=== PATIENT | female | born 1930 | race Caucasian/White ===

== ENCOUNTER 2017-02-23 18:37 | Emergency (ER) | payer OTHER ==
[2017-02-23 18:41] VITALS: PULSE 85; TEMP 97.7; BMI 21.6
--- NOTE | 2017-02-23 19:25 | PDOC ---
History of Present Illness - General History Source: Patient Exam Limitations: No Limitations - History of Present Illness Initial Comments: 02/23/17 20:11 The patient is a 86 year old female, with a significant past medical history of bursitis, osteoporosis, hx of AAA, HTN, hyperlipidemia, hypothyroidism, left breast CA(2010; s/p lumpectomy and radiation; no metastasis), left sided bursitis, COPD, emphysema and diverticulitis who presents to the emergency department with left sided neck pain and left arm pain. Patient describes the pain as sharp and constant in nature with sudden onset few days ago and worsening over 3 days. Patient notes that she took 400 mg of motrin with no relief at 1600 hours. She notes that she had similar complaint, and was diagnosed with muscle spasm but she states that this time its different. She denies any fall or strenuous activity. She denies fever, chills, cp, shortness of breath, abdominal pain, nausea, vomiting, diarrhea. No numbness or tingling. PSH: Appendectomy, Cholecystectomy, DEMOND/BSO SH: former smoker PCP - Dr. Fredo Oleary <Kaitlin Brandon - Last Filed: 02/23/17 20:11> <Ting Thibodeaux - Last Filed: 02/24/17 03:33> - General Chief Complaint: Pain Stated Complaint: PAIN Time Seen by Provider: 02/23/17 19:17 Past History <Kaitlin Brandon - Last Filed: 02/23/17 20:11> - Past Medical History Anemia: No Asthma: No Cancer: Yes (LEFT BREAST) Cardiac Disorders: Yes CVA: No COPD: Yes (EMPYSEMA) CHF: No Dementia: No Diabetes: No GI Disorders: No Disorders: No HTN: Yes Hypercholesterolemia: Yes Liver Disease: No Seizures: No Thyroid Disease: Yes - Surgical History Abdominal Surgery: No Appendectomy: Yes Cardiac Surgery: No Cholecystectomy: (STONE REMOVAL) Lung Surgery: No (L BREAST LUMPECTOMY) Neurologic Surgery: No Orthopedic Surgery: Yes (R WRIST ORIF) - Psycho/Social/Smoking Cessation Hx Anxiety: No Suicidal Ideation: No Smoking History: Former smoker Have you smoked in the past 12 months: No If you are a former smoker, when did you quit?: 10 YRS Information on smoking cessation initiated: No Hx Alcohol Use: Yes (SOCIAL) Drug/Substance Use Hx: No Substance Use Type: None Hx Substance Use Treatment: No <Ting Thibodeaux - Last Filed: 02/24/17 03:33> - Past Medical History Allergies/Adverse Reactions: Allergies Allergy/AdvReac Type Severity Reaction Status Date / Time Sulfa (Sulfonamide Allergy "feels Verified 02/23/17 18:41 Antibiotics) like bugs are crawling in my skin" Home Medications: Ambulatory Orders Aspirin [ASA -] 81 mg PO DAILY 08/09/13 Atorvastatin Ca [Lipitor] 20 mg PO DAILY 08/09/13 Methimazole 5 mg PO UTDICT 08/09/13 Valsartan/Hydrochlorothiazide [Diovan Hct 80-12.5 mg Tablet -] 1 tab PO DAILY Multivitamins [Multivit ([facility] Formul[facility])] 1 tab PO DAILY 09/05/14 Cholecalciferol (Vitamin D3) [Vitamin D] 1,000 unit PO DAILY 11/03/15 Cyanocobalamin (Vitamin B-12) [Vitamin B12] 2,500 mcg PO DAILY 11/03/15 Cyclobenzaprine HCl [Flexeril] 5 mg PO BID PRN #20 tablet 11/03/15 Fiber [Fiber Choice] 1 each PO DAILY 11/03/15 Ibuprofen [Motrin -] 600 mg PO TID PRN 02/23/17 Methocarbamol [Robaxin -] 500 mg PO TID #30 tablet 02/23/17 Oxycodone HCl/Acetaminophen [Percocet 5/325 -] 1 tab PO Q6H #20 tablet MDD 4 Review of Systems - Review of Systems Able to Perform ROS?: Yes Comments:: 02/23/17 20:11 GENERAL/CONSTITUTIONAL: No fever or chills. No weakness. HEAD, EYES, EARS, NOSE AND THROAT: No change in vision. No ear pain or discharge. No sore throat. CARDIOVASCULAR: No chest pain or shortness of breath. RESPIRATORY: No cough, wheezing, or hemoptysis. GASTROINTESTINAL: No nausea, vomiting, diarrhea or constipation. GENITOURINARY: No dysuria, frequency, or change in urination. MUSCULOSKELETAL: +left arm pain, left sided neck pain. No joint or muscle swelling or pain. No back pain. SKIN: No rash NEUROLOGIC: No headache, vertigo, loss of consciousness, or change in strength/ sensation. ENDOCRINE: No increased thirst. No abnormal weight change. HEMATOLOGIC/LYMPHATIC: No anemia, easy bleeding, or history of blood clots. ALLERGIC/IMMUNOLOGIC: No hives or skin allergy. <Kaitlin Brandon - Last Filed: 02/23/17 20:11> *Physical Exam - Vital Signs Last Vital Signs Temp Pulse Resp BP Pulse Ox 97.7 F 85 20 143/60 93 L 02/23/17 18:38 02/23/17 18:38 02/23/17 18:38 02/23/17 18:38 02/23/17 18:38 - Physical Exam Comments: 02/23/17 20:12 GENERAL: Awake, alert, and fully oriented, in no acute distress HEAD: No signs of trauma EYES: PERRLA, EOMI, sclera anicteric, conjunctiva clear ENT: Auricles normal inspection, hearing grossly normal, nares patent, oropharynx clear without exudates. Moist mucosa NECK: Normal ROM, supple, no lymphadenopathy, JVD, or masses LUNGS: Breath sounds equal, clear to auscultation bilaterally. No wheezes, and no crackles HEART: Regular rate and rhythm, normal S1 and S2, no murmurs, rubs or gallops ABDOMEN: Soft, nontender, normoactive bowel sounds. No guarding, no rebound. No masses EXTREMITIES: +mild tenderness with abduction. Normal range of motion, no edema. No clubbing or cyanosis. No cords, erythema. Full ROM. MUSCULOSKELETAL: +tenderness over trapezius NEUROLOGICAL: Cranial nerves II through XII grossly intact. Normal speech, normal gait SKIN: Warm, Dry, normal turgor, no rashes or lesions noted. <Kaitlin Brandon - Last Filed: 02/23/17 20:11> - Vital Signs Last Vital Signs Temp Pulse Resp BP Pulse Ox 97.7 F 85 20 143/60 93 L 02/23/17 18:38 02/23/17 18:38 02/23/17 18:38 02/23/17 18:38 02/23/17 18:38 <Ting Thibodeaux - Last Filed: 02/24/17 03:33> Medical Decision Making - Medical Decision Making 02/23/17 21:05 xray demonstrate DJD of the c spine.. shoulder XR is normal. 02/24/17 03:30 Pt has left neck and trapesius pain. She has kyphoscoliosis. No other complaints. XRays consistent with DJD; left shoulder xr is normal. Pt given NSAIDS and muscle relaxants. <Ting Thibodeaux - Last Filed: 02/24/17 03:33> *DC/Admit/Observation/Transfer - Attestations Scribe Attestion: 02/23/17 20:12 Documentation prepared by ADILENE Garcia, acting as biomedical service engineer for Ting Thibodeaux MD. <Kaitlin Brandon - Last Filed: 02/23/17 20:11> - Discharge Dispostion Admit: No <Ting Thibodeaux - Last Filed: 02/24/17 03:33> Diagnosis at time of Disposition: Muscle spasms of neck, DJD (degenerative joint disease) of cervical spine - Discharge Dispostion Disposition: HOME Condition at time of disposition: Stable - Prescriptions Prescriptions: Oxycodone HCl/Acetaminophen [Percocet 5/325 -] 1 tab PO Q6H #20 tablet MDD 4 Methocarbamol [Robaxin -] 500 mg PO TID #30 tablet - Referrals Referrals: Fredo Oleary MD [Primary Care Provider] - - Patient Instructions Printed Discharge Instructions: DI for Back Spasm, DI for Neck Pain, DI for Cervical Muscle Strain
[2017-02-23] MEDS ORDERED: KETOROLAC TROMETHAMINE 60 MG/2 ML VIAL IM ONE (20:06)
[2017-02-23] MEDS ORDERED: METHOCARBAMOL 500 MG TABLET PO ONE (20:06)
[2017-02-23] MEDS ORDERED: METHOCARBAMOL 500 MG TABLET ONE (20:07)
[2017-02-23] MEDS ORDERED: KETOROLAC TROMETHAMINE 30 MG/1 ML VIAL ONE ×2 (20:07→20:17)
[2017-02-23] MEDS ORDERED: OXYCODONE/APAP 5/325MG COMBO TABLET PO ONE (21:05)
[2017-02-23] MEDS ORDERED: OXYCODONE/APAP 5/325MG COMBO TABLET ONE (21:13)
[2017-02-23 21:20] VITALS: BP 136/74
--- NOTE | 2017-02-24 15:08 | EKG ---
Test Reason : Blood Pressure : / mmHG Vent. Rate : 074 BPM Atrial Rate : 074 BPM P-R Int : 176 ms QRS Dur : 080 ms QT Int : 398 ms P-R-T Axes : 057 -41 054 degrees QTc Int : 441 ms NORMAL SINUS RHYTHM LEFT AXIS DEVIATION ABNORMAL ECG WHEN COMPARED WITH ECG OF 03-NOV-2015 08:44, PREMATURE VENTRICULAR COMPLEXES ARE NO LONGER PRESENT Confirmed by MUSA CALDERÓN MD ([id number]) on 02/24/2017 3:08:33 PM Referred By: Confirmed By:MUSA CALDERÓN MD
== END 2017-02-23 21:20 | disposition home or self-care (01) ==
LOC: JERFT 18:37 → JER 18:37
PROC: 3E0233Z Introduction of Anti-inflammatory into Muscle, Percutaneous Approach (ICD-10-PCS; principal; 2017-02-23)
DX: M62.838 Other muscle spasm (principal); M50.30 Other cervical disc degeneration, unspecified cervical region; I10 Essential (primary) hypertension; E78.00 Pure hypercholesterolemia, unspecified; E03.9 Hypothyroidism, unspecified; Z85.3 Personal history of malignant neoplasm of breast
CPT/HCPCS: 72050-TC; 73030-TC-LT; 93005; 93010; 96372; 99281-25

== ENCOUNTER 2017-06-19 07:46 | Inpatient (IN) | payer OTHER ==
--- NOTE | 2017-06-19 08:19 | PDOC ---
History of Present Illness - General Chief Complaint: Weakness Stated Complaint: WEAKNESS Time Seen by Provider: 06/19/17 07:52 - History of Present Illness Initial Comments: 06/19/17 08:32 Patient is an 87 year old female with a history of a AAA, HTN, COPD, osteporosis , Breast CA s/p lumpectomy 2009 who presents with generalized fatigue. The patient reports 1 weak of increasing weakness with some associated worsening of SOB, lightheadedness and nausea. The patient is SOB at baseline, but notes a worsening over the past few days. The patient is accompanied by her daughter who reports that the patient has been less active in the past few days prompting their visit to the ED. The patient also reports an acute worsening of her chronic upper back and neck pain. She denies fevers, chills, cough, chest pain, abdominal pain, or changes in her urination or bowel movements. Past History - Past Medical History Allergies/Adverse Reactions: Allergies Allergy/AdvReac Type Severity Reaction Status Date / Time Sulfa (Sulfonamide Allergy "feels Verified 06/19/17 08:01 Antibiotics) like bugs are crawling in my skin" Home Medications: Ambulatory Orders Aspirin [ASA -] 81 mg PO DAILY 08/09/13 Atorvastatin Ca [Lipitor] 20 mg PO DAILY 08/09/13 Multivitamins [Multivit ([facility] Form[facility])] 1 tab PO DAILY 09/05/14 Cholecalciferol (Vitamin D3) [Vitamin D] 2,000 unit PO DAILY 11/03/15 Cyanocobalamin (Vitamin B-12) [Vitamin B12] 1,000 mcg PO DAILY 11/03/15 Fiber [Fiber Choice] 1 each PO DAILY 11/03/15 Budesonide/Formeterol Fumarate [SYMBICORT 160/4.5mcg -] 1 inh IH PRN PRN Tiotropium [place] [Spiriva] 1 inh IH DAILY 06/19/17 Vitamin E 0 unit PO ASDIR 06/19/17 Anemia: No Asthma: No Cancer: Yes (LEFT BREAST) Cardiac Disorders: Yes CVA: No COPD: Yes (EMPYSEMA) CHF: No Dementia: No Diabetes: No GI Disorders: No Disorders: No HTN: Yes Hypercholesterolemia: Yes Liver Disease: No Seizures: No Thyroid Disease: Yes - Surgical History Abdominal Surgery: No Appendectomy: Yes Cardiac Surgery: No Cholecystectomy: (STONE REMOVAL) Lung Surgery: No (L BREAST LUMPECTOMY) Neurologic Surgery: No Orthopedic Surgery: Yes (R WRIST ORIF) - Immunization History Immunization Up to Date: Yes - Psycho/Social/Smoking Cessation Hx Anxiety: No Suicidal Ideation: No Smoking History: Former smoker Have you smoked in the past 12 months: No If you are a former smoker, when did you quit?: 2009 Information on smoking cessation initiated: No Hx Alcohol Use: No Drug/Substance Use Hx: No Substance Use Type: None Hx Substance Use Treatment: No Review of Systems - Review of Systems Constitutional: Yes: Weakness. No: Chills, Fever Respiratory: Yes: Shortness of Breath. No: Cough, Wheezing Cardiac (ROS): No: Chest Pain, Palpitations ABD/GI: No: Constipated, Diarrhea, Nausea, Vomiting : No: Burning, Dysuria Musculoskeletal: Yes: Back Pain, Neck Pain Integumentary: No: Rash Neurological: Yes: Headache. No: Numbness, Paresthesia, Tingling, Weakness *Physical Exam - Vital Signs Last Vital Signs Temp Pulse Resp BP Pulse Ox 97.8 F 100 H 22 134/77 90 L 06/19/17 07:50 06/19/17 07:50 06/19/17 07:50 06/19/17 07:50 06/19/17 07:50 - Physical Exam Comments: 06/19/17 08:53 General Appearance: Nourished. No Apparent Distress HEENT: EOMI, MARTHA. No Pharyngeal Erythema, Tonsillar Exudate, Tonsillar Erythema, Nasal Congestion, Rhinorrhea Respiratory/Chest: Normal Breath Sounds, Crackles ascultated at the right lung base. No Rhonchi, Wheezing Cardiovascular: Regular Rhythm, Regular Rate. No Murmur, Gallop/S3, Gallop/S4 Gastrointestinal/Abdominal: Normal Bowel Sounds, Soft, Mild suprapubic tenderness on exam. No Guarding, Rebound, Extremity: Normal Capillary Refill Integumentary: Normal Color, Dry, Warm Neurologic: pipe washer II-XII NML intact, Fully Oriented, Alert, Normal Mood/Affect, Normal Response, Motor Strength 5/5 ED Treatment Course - LABORATORY CBC & Chemistry Diagram: 06/19/17 09:03 06/19/17 09:03 Medical Decision Making - Medical Decision Making 06/19/17 08:54 Patient is a 87 year old female with a history of HTN, COPD, AAA, osteporosis, breast CA s/p lumpectomy who presents with generalized weakness. Differential includes but is not limited to: Pneumonia, COPD exacerbation, ACS, UTI. The patient's exam is concerning for a pneumonia with crackles at the right lung base as well as UTI given suprapubic tenderness. We will obtain a UA, chest radiograph, cbc, cmp, troponin. 06/19/17 14:23 CBC remarkable for elevated WBC to 10.5. Chest radiograph demonstrates right lower lobe atelectasis without infiltrates as read by our radiologist. CMP and troponin are unremarkable. UA is remarkable for WBC of 40, and many bacteria concerning for UTI. We believe that the patient requires admission given her UTI and multiple episodes of nausea and pre-syncopal episodes. 06/19/17 14:[address] Hall and accepted for admission. *DC/Admit/Observation/Transfer Diagnosis at time of Disposition: UTI (urinary tract infection) Qualifiers: Urinary tract infection type: acute cystitis Hematuria presence: without hematuria Qualified Code(s): N30.00 - Acute cystitis without hematuria - Discharge Dispostion Condition at time of disposition: Stable Admit: Yes - Referrals - Attestations Physician Attestion: 06/19/17 19:02 I, Dr. Jayson Dye, attest that this document has been prepared under my direction and personally reviewed by me in its entirety. I further attest, that it accurately reflects all work, treatment, procedures and medical decision -making performed by me.
--- NOTE | 2017-06-19 08:25 | PDOC ---
Attending Attestation - Medical Decision Making 06/19/17 13:08 Dr. Hall microblogged for admission. Documentation prepared by Earnestine Tyler, acting as pediatrician/medical doctor for River Han MD <Earnestine Tyler - Last Filed: 06/19/17 13:08> - Resident Resident Name: Jayson Dye - ED Attending Attestation I have performed the following: I have examined & evaluated the patient, The case was reviewed & discussed with the resident, I agree w/resident's findings & plan, Exceptions are as noted - HPI HPI: 06/19/17 08:20 87yo F hx breast ca s/p lumpectomy 2010, COPD, emphysema, HTN, HL, AAA p/w generalized weakness associated with episodes of lightheadedness and nausea for 1 week. She feels the weakness is getting worse and that she is having more frequent episodes of nausea and lightheadedness. She denies any loss of consciousness or falls. She also reports a new cough that is nonproductive and increased thirst leading to increased urinary frequency. She denies any sick contacts or recent travel. She denies any chest pain. She reports that she is short of breath at baseline secondary to her COPD and that has not gotten worse over the last week. She denies any abdominal pain, lower extremity edema, rashes. In addition she endorses neck and back pain since October that she has been seeing a pain management doctor for. PMD: Mamta 06/19/17 09:08 - Physicial Exam PE: 06/19/17 08:26 GENERAL: Awake, alert, and fully oriented, in no acute distress HEAD: No signs of trauma EYES: PERRLA, EOMI, sclera anicteric, conjunctiva clear ENT: Auricles normal inspection, hearing grossly normal, nares patent, oropharynx clear without exudates. dry MM NECK: Normal ROM, supple, no lymphadenopathy, JVD, or masses LUNGS: Breath sounds equal, clear to auscultation bilaterally. No wheezes, + crackles at R lung base HEART: tachy but regular, rate 102, normal S1 and S2, no murmurs, rubs or gallops ABDOMEN: Soft, normoactive bowel sounds. No guarding, no rebound. No masses + suprapubic ttp EXTREMITIES: Normal range of motion, no edema. No clubbing or cyanosis. No cords, erythema, or tenderness NEUROLOGICAL: Normal speech, cranial nerves intact, negative pronator drift, 5/ 5 strength in all 4 extremities, normal sensation to light touch in all 4 extremities, normal cerebellar exam, normal gait, normal reflexes and tone SKIN: Warm, Dry, normal turgor, no rashes or lesions noted. EKG: NSR, rate 87, left axis deviation, normal intervals, T-wave flattening in aVL, no ST elevations. No significant change compared to EKG from 02/23/2017. - Medical Decision Making 06/19/17 09:08 87yo F hx breast ca s/p lumpectomy 2010, COPD, emphysema, HTN, HL, AAA presents with generalized weakness associated with episodes of lightheadedness and nausea. Exam remarkable for mild tachycardia, dry mucous membranes, crackles at the right lung base as well as suprapubic tenderness to palpation. Differential is wide and includes acute coronary syndrome given the weakness and episodes of nausea and lightheadedness versus infection, specifically pneumonia given the crackles on exam or UTI given the suprapubic tenderness to palpation. -labs -ua/ucx -cxr -500cc IVF -call Dr. Oleary -admit 06/19/17 20:[address] Hall for further monitoring and management <River Han - Last Filed: 06/19/17 20:06>
[2017-06-19] MEDS ORDERED: SODIUM CHLORIDE 500 ML IV STA (09:08)
[2017-06-19 09:13] LABS: BASOPHIL 0.3 % (0-2.0); MCH 30.3 pg (25.7-33.7); MCHC 32.9 g/dl (32.0-36.0); MEAN CELL VOLUME 92.1 fl (80-96); MEAN PLT VOLUME 8.9 fl (7.5-11.1); NEUTROPHILS 82.4 % (42.8-82.8); PLATELET COUNT 285 K/MM3 (134-434); RDW 15.4 % (11.6-15.6); WHITE BLOOD COUNT 10.3 K/mm3 (4.0-10.0)
[2017-06-19] MEDS ORDERED: ALBUTEROL SO4 2.5/IPRATROPIUM 0.5 INH SOL 3 ML VIAL.NEB. NEB ONE ×2 (09:15→10:27)
[2017-06-19 09:35] LABS: ALBUMIN 3.7 g/dl (3.4-5.0); ANION GAP 8 (8-16); BILIRUBIN,TOTAL 0.4 mg/dL (0.2-1.0); CALCIUM 8.3 mg/dL (8.5-10.1); CO2 28 mmol/L (21-32); CREATININE 0.6 mg/dL (0.55-1.02); GLUCOSE,RANDOM 101 mg/dL (74-106); SGOT/AST 23 U/L (15-37); SGPT/ALT 34 U/L (12-78); TOT PROT 6.5 g/dl (6.4-8.2)
[2017-06-19 09:38] LABS: ALK PHOS 85 U/L (45-117); CPK 33 IU/L (26-192); TROPONIN I < 0.02 ng/ml (0.00-0.05)
[2017-06-19] MEDS ORDERED: CEFTRIAXONE 1 GM in DEXTROSE 5%-WATER - 50 ML IVPB ONE (09:43)
[2017-06-19] MEDS ORDERED: AZITHROMYCIN IVPB 500 MG in DEXTROSE 5%-WATER - 250 ML IVPB ONE (09:43)
[2017-06-19] MEDS ORDERED: AZITHROMYCIN IVPB 250 ML IVPB ONE (10:28)
[2017-06-19] MEDS ORDERED: CEFTRIAXONE 50 ML ONE (10:28)
[2017-06-19 10:55] LABS: URINE APPEARANCE CLEAR; URINE BILIRUBIN NEGATIVE (NEGATIVE); URINE BLOOD 1+ (NEGATIVE); URINE COLOR YELLOW; URINE GLUCOSE (UA) NEGATIVE (NEGATIVE); URINE KETONE TRACE (NEGATIVE); URINE NITRITE POSITIVE (NEGATIVE); URINE PROTEIN NEGATIVE (NEGATIVE); URINE UROBILINOGEN NEGATIVE mg/dL (0.2-1.0)
[2017-06-19 10:57] LABS: URINE BACTERIA MANY /hpf (NONE SEEN); URINE HYALINE CAST 1 /lpf; URINE LEUK ESTERASE 2+ (NEGATIVE); URINE MUCUS FEW; URINE RBC 4 /hpf (0-3); URINE WBC 40 /hpf (3-5)
[2017-06-19] MEDS ORDERED: VANCOMYCIN 1,250 MG in DEXTROSE 5%-WATER - 250 ML IVPB ONE (12:20)
[2017-06-19] MEDS ORDERED: MEROPENEM 1,000 MG in DEXTROSE 5%-WATER - 100 ML IVPB ONE (12:20)
[2017-06-19] MEDS ORDERED: ACETAMINOPHEN 325 MG TABLET (FP) PO PRN (15:26)
[2017-06-19] MEDS ORDERED: ONDANSETRON 4 MG/2 ML VIAL IVPB PRN (15:26)
--- NOTE | 2017-06-19 15:27 | EKG ---
Test Reason : Blood Pressure : / mmHG Vent. Rate : 087 BPM Atrial Rate : 087 BPM P-R Int : 170 ms QRS Dur : 082 ms QT Int : 390 ms P-R-T Axes : 061 -61 055 degrees QTc Int : 469 ms NORMAL SINUS RHYTHM LEFT AXIS DEVIATION POSSIBLE ANTERIOR INFARCT , AGE UNDETERMINED ABNORMAL ECG WHEN COMPARED WITH ECG OF 23-FEB-2017 20:28, NO SIGNIFICANT CHANGE WAS FOUND Confirmed by VERONICA CRYSTAL, HIWOT ([id number]) on 06/19/2017 3:27:02 PM Referred By: Confirmed By:HIWOT MARTIN MD
--- NOTE | 2017-06-19 15:39 | HP ---
Admitting History and Physical - Primary Care Physician PCP: Fredo Oleary - Admission Chief Complaint: I feel terrible History of Present Illness: Ms Kendrick is a pleasant 87 year old female who comes in with complaints of feeling poorly. This started approximately 2 weeks ago. She says she noticed that she had urinary frequency and lightheadedness. It is difficult to ascertain if this was a lightheadedness or a vertiginous feeling because she describes it as both (she says she felt woozy/lightheaded, however she notices it when she is lying in bed and turns her head and she feels off balance). She was seen as an outpatient and treated for vertigo. She originally improved and the urinary frequency resolved, but then she developed nausea. She says she has waves of nausea. She does not throw up with the nausea. She also has history of chronic neck pain with headaches but it was worsening. She had decrease in appetite and intake during this time. She had a general malaise. She denies fevers, chills, chest pain, shortness of breath, diarrhea, constipation, pain or difficulty urinating, or swelling. She says she felt very weak and had a bad headache and decided to come in for further evaluation. History Source: Patient Limitations to Obtaining History: No Limitations - Past Medical History Pulmonary: Yes: COPD Heme/Onc: Yes: Cancer (breast) Musculoskeletal: Yes: Osteoarthritis Endocrine: Yes: Hyperthyroidism - Past Surgical History Past Surgical History: Yes: Cholecystectomy, Hysterectomy - Smoking History Smoking history: Former smoker Have you smoked in the past 12 months: No If you are a former smoker, when did you quit?: 2009 - Alcohol/Substance Use Hx Alcohol Use: No History of Substance Use: reports: None - Social History Usual Living Arrangement: Yes: Alone, With Child ADL: Independent History of Recent Travel: No Home Medications - Allergies Allergies/Adverse Reactions: Allergies Allergy/AdvReac Type Severity Reaction Status Date / Time Sulfa (Sulfonamide Allergy "feels Verified 06/19/17 08:01 Antibiotics) like bugs are crawling in my skin" - Home Medications Home Medications: Ambulatory Orders Aspirin [ASA -] 81 mg PO DAILY 08/09/13 Atorvastatin Ca [Lipitor] 20 mg PO DAILY 08/09/13 Multivitamins [Multivit ([facility] Formulary)] 1 tab PO DAILY 09/05/14 Cholecalciferol (Vitamin D3) [Vitamin D] 2,000 unit PO DAILY 11/03/15 Cyanocobalamin (Vitamin B-12) [Vitamin B12] 1,000 mcg PO DAILY 11/03/15 Fiber [Fiber Choice] 1 each PO DAILY 11/03/15 Budesonide/Formeterol Fumarate [SYMBICORT 160/4.5mcg -] 1 inh IH PRN PRN Tiotropium [place] [Spiriva] 1 inh IH DAILY 06/19/17 Vitamin E 0 unit PO ASDIR 06/19/17 Family Disease History - Family Disease History Family Disease History: CA: Mother (ovarian), Other: Father (pneumonia), Son ( CVA) Review of Systems Findings/Remarks: Full review of systems obtained, as per HPI and otherwise negative Physical Examination Vital Signs: Vital Signs Temperature 36.6 C 06/19/17 07:50 Pulse Rate 87 06/19/17 14:41 Respiratory Rate 22 06/19/17 07:50 Blood Pressure 147/70 06/19/17 14:41 O2 Sat by Pulse Oximetry (%) 95 06/19/17 14:41 Constitutional: Yes: Well Nourished, No Distress, Calm Eyes: Yes: Conjunctiva Clear, EOM Intact, PERRL HENT: Yes: Atraumatic, Normocephalic Cardiovascular: Yes: Regular Rate and Rhythm. No: Gallop, Murmur, Rub Respiratory: Yes: Regular, CTA Bilaterally. No: Rales, Rhonchi, Wheezes Gastrointestinal: Yes: Normal Bowel Sounds, Soft. No: Distention, Tenderness Extremities: Yes: WNL Edema: No Labs: Laboratory Results - last 24 hr 06/19/17 06/19/17 06/19/17 09:00 09:03 09:03 WBC 10.3 H D RBC 4.47 Hgb 13.6 Hct 41.2 MCV 92.1 MCH 30.3 MCHC 32.9 RDW 15.4 Plt Count 285 MPV 8.9 Neutrophils % 82.4 D Lymphocytes % 7.4 L D Monocytes % 8.9 Eosinophils % 1.0 Basophils % 0.3 Sodium 143 Potassium 3.7 Chloride 107 Carbon Dioxide 28 Anion Gap 8 BUN 13 Creatinine 0.6 D Creat Clearance w eGFR > 60 Random Glucose 101 Calcium 8.3 L Total Bilirubin 0.4 AST 23 D ALT 34 Alkaline Phosphatase 85 D Creatine Kinase 33 Troponin I < 0.02 Total Protein 6.5 Albumin 3.7 Urine Color Yellow Urine Appearance Clear Urine pH 5.0 Urine Protein Negative Urine Glucose (UA) Negative Urine Ketones Trace H Urine Blood 1+ H Urine Nitrite Positive Urine Bilirubin Negative Urine Urobilinogen Negative Ur Leukocyte Esterase 2+ H Urine RBC 4 Urine WBC 40 Ur Epithelial Cells Rare Urine Bacteria Many Hyaline Casts 1 Urine Mucus Few Imaging - Results Chest X-ray: Report Reviewed, Image Reviewed Problem List - Problems (1) UTI (urinary tract infection) Assessment/Plan: -presents with malaise and found to have a UTI -has nausea, concerned she won't tolerate oral antibiotics -received rocephin in the ED -rocephin day 1 -continue rocephin while hospitalized -lactobacillus Code(s): N39.0 - URINARY TRACT INFECTION, SITE NOT SPECIFIED Qualifiers: Urinary tract infection type: acute cystitis Hematuria presence: without hematuria Qualified Code(s): N30.00 - Acute cystitis without hematuria (2) COPD (chronic obstructive pulmonary disease) Assessment/Plan: -not in exacerbation -continue spiriva and symbicort -incentive spirometer Code(s): J44.9 - CHRONIC OBSTRUCTIVE PULMONARY DISEASE, UNSPECIFIED (3) Hyperthyroidism Assessment/Plan: -continue methimazole -takes it MWF Code(s): E05.90 - THYROTOXICOSIS, UNSP WITHOUT THYROTOXIC CRISIS OR STORM (4) HLD (hyperlipidemia) Assessment/Plan: -continue lipitor Code(s): E78.5 - HYPERLIPIDEMIA, UNSPECIFIED (5) Weakness Assessment/Plan: -secondary to UTI -PT consult Code(s): R53.1 - WEAKNESS (6) Dehydration Assessment/Plan: -hydrate with IVF Code(s): E86.0 - DEHYDRATION
[2017-06-19 16:06] VITALS: BMI 22.4
[2017-06-19] MEDS: LACTOBACILLUS ACIDOPHILUS 1 EACH TAB (FP) PO SCH (16:09)
[2017-06-19] MEDS: SODIUM CHLORIDE 1,000 ML IV SCH (16:10)
[2017-06-19] MEDS: BUDESONIDE/FORMETEROL FUMARATE 160/4.5 mcg INHALER IH SCH (18:18)
[2017-06-20] MEDS: BUDESONIDE/FORMETEROL FUMARATE 160/4.5 mcg INHALER IH SCH ×2 (05:55→17:42)
[2017-06-20] MEDS: SODIUM CHLORIDE 1,000 ML IV SCH (05:57)
[2017-06-20 08:32] LABS: BASOPHIL 0.6 % (0-2.0); EOSINOPHIL 3.1 % (0-4.5); MCH 30.6 pg (25.7-33.7); MCHC 33.2 g/dl (32.0-36.0); MEAN CELL VOLUME 92.1 fl (80-96); MEAN PLT VOLUME 9.1 fl (7.5-11.1); NEUTROPHILS 66.8 % (42.8-82.8); PLATELET COUNT 263 K/MM3 (134-434); RDW 15.7 % (11.6-15.6); WHITE BLOOD COUNT 6.2 K/mm3 (4.0-10.0)
[2017-06-20 09:40] LABS: ANION GAP 4 (8-16); CALCIUM 7.8 mg/dL (8.5-10.1); CO2 30 mmol/L (21-32); CREATININE 0.4 mg/dL (0.55-1.02); GLUCOSE,RANDOM 87 mg/dL (74-106); MAGNESIUM 2.3 mg/dL (1.8-2.4); PHOSPHOROUS 2.6 mg/dL (2.5-4.9)
[2017-06-20] MEDS ORDERED: FIBER PO SCH (10:00)
[2017-06-20] MEDS: CEFTRIAXONE 50 ML IVPB SCH (10:02)
[2017-06-20] MEDS: ACLIDINIUM BROMIDE 400 MCG/INH AERO.POWD IH SCH ×2 (10:04→21:09)
[2017-06-20] MEDS: LACTOBACILLUS ACIDOPHILUS 1 EACH TAB (FP) PO SCH (10:05)
[2017-06-20] MEDS: CYANOCOBALAMIN 1,000 MCG TABLET (FP) PO SCH (10:05)
[2017-06-20] MEDS: MULTIVITAMINS (DAILY MVI) TABLET (FP) PO SCH (10:05)
[2017-06-20] MEDS: ASPIRIN 81 MG CHEWABLE TABLETS PO SCH (10:05)
[2017-06-20] MEDS: CHOLECALCIFEROL (VITAMIN D3) 1,000 UNIT TABLET (FP) PO SCH (10:05)
--- NOTE | 2017-06-20 12:55 | PN ---
Progress Note, Physician Chief Complaint: Ms Kendrick says she is feeling better today. Weakness resolving, walked with PT. No longer with a headache. Denies cp, sob, n/v. Appetite improved. - Current Medication List Current Medications: Active Medications Acetaminophen (Tylenol -) 650 mg PO Q4H PRN PRN Reason: FEVER OR PAIN Aclidinium [place] (Tudorza -) 1 puff IH BID [facility] Last Admin: 06/20/17 10:04 Dose: 1 puff Aspirin (Asa -) 81 mg PO DAILY [facility] Last Admin: 06/20/17 10:05 Dose: 81 mg Atorvastatin Calcium (Lipitor -) 20 mg PO [facility] Budesonide/Formoterol Fumarate (Symbicort 160/4.5mcg -) 1 puff IH BID@0600, 1800 [facility] Last Admin: 06/20/17 05:55 Dose: 1 puff Cholecalciferol (Vitamin D3 -) 2,000 unit PO DAILY [facility] Last Admin: 06/20/17 10:05 Dose: 2,000 unit Cyanocobalamin (Vitamin B12 -) 1,000 mcg PO DAILY [facility] Last Admin: 06/20/17 10:05 Dose: 1,000 mcg Ceftriaxone Sodium (Rocephin 1gm Ivpb (Pre-Docked)) 50 mls @ 100 mls/hr IVPB DAILY [facility] Last Admin: 06/20/17 10:02 Dose: 100 mls/hr Lactobacillus Acidophilus (Bacid -) 1 tab PO DAILY [facility] Last Admin: 06/20/17 10:05 Dose: 1 tab Multivitamins/Minerals/Vitamin C (Tab-A-Vit -) 1 tab PO DAILY [facility] Last Admin: 06/20/17 10:05 Dose: 1 tab Ondansetron HCl (Zofran Injection) 4 mg IVPB Q6H PRN PRN Reason: NAUSEA - Objective Vital Signs: Vital Signs Temperature 36.1 C L 06/20/17 10:10 Pulse Rate 76 06/20/17 10:10 Respiratory Rate 20 06/20/17 10:10 Blood Pressure 142/65 06/20/17 10:10 O2 Sat by Pulse Oximetry (%) 96 06/19/17 15:35 Constitutional: Yes: Well Nourished, No Distress, Calm Cardiovascular: Yes: Regular Rate and Rhythm. No: Gallop, Murmur, Rub Respiratory: Yes: Regular, Rhonchi (minimal). No: CTA Bilaterally, Rales, Wheezes Gastrointestinal: Yes: Normal Bowel Sounds, Soft. No: Distention, Tenderness Extremities: Yes: WNL Edema: No Labs: CBC, BMP 06/20/17 07:15 06/20/17 08:00 Problem List - Problems (1) UTI (urinary tract infection) Code(s): N39.0 - URINARY TRACT INFECTION, SITE NOT SPECIFIED Qualifiers: Urinary tract infection type: acute cystitis Hematuria presence: without hematuria Qualified Code(s): N30.00 - Acute cystitis without hematuria (2) COPD (chronic obstructive pulmonary disease) Code(s): J44.9 - CHRONIC OBSTRUCTIVE PULMONARY DISEASE, UNSPECIFIED (3) Hyperthyroidism Code(s): E05.90 - THYROTOXICOSIS, UNSP WITHOUT THYROTOXIC CRISIS OR STORM (4) HLD (hyperlipidemia) Code(s): E78.5 - HYPERLIPIDEMIA, UNSPECIFIED (5) Weakness Code(s): R53.1 - WEAKNESS (6) Dehydration Code(s): E86.0 - DEHYDRATION Assessment/Plan (1) UTI (urinary tract infection) Assessment/Plan: -urine cultures growing gram negative rods -continue rocephin day 2 -await urine cultures results, possible discharge tomorrow pending sensitivities Code(s): N39.0 - URINARY TRACT INFECTION, SITE NOT SPECIFIED Qualifiers: Urinary tract infection type: acute cystitis Hematuria presence: without hematuria Qualified Code(s): N30.00 - Acute cystitis without hematuria (2) COPD (chronic obstructive pulmonary disease) Assessment/Plan: -not in exacerbation -continue spiriva and symbicort -incentive spirometer Code(s): J44.9 - CHRONIC OBSTRUCTIVE PULMONARY DISEASE, UNSPECIFIED (3) Hyperthyroidism Assessment/Plan: -continue methimazole -takes it MWF Code(s): E05.90 - THYROTOXICOSIS, UNSP WITHOUT THYROTOXIC CRISIS OR STORM (4) HLD (hyperlipidemia) Assessment/Plan: -continue lipitor Code(s): E78.5 - HYPERLIPIDEMIA, UNSPECIFIED (5) Weakness Assessment/Plan: -much improved -PT following Code(s): R53.1 - WEAKNESS (6) Dehydration Assessment/Plan: -resolved -d/c IVF today Code(s): E86.0 - DEHYDRATION Dispo -plan for discharge tomorrow
[2017-06-20] MEDS ORDERED: ATORVASTATIN CA 20 MG TABLET (FP) PO SCH (22:00)
[2017-06-20] MEDS ORDERED: METHIMAZOLE 5 MG TABLET (FP) PO ONE (22:15)
[2017-06-21] MEDS: BUDESONIDE/FORMETEROL FUMARATE 160/4.5 mcg INHALER IH SCH (05:23)
[2017-06-21 07:28] LABS: BASOPHIL 0.6 % (0-2.0); EOSINOPHIL 4.3 % (0-4.5); MCH 30.4 pg (25.7-33.7); MCHC 33.1 g/dl (32.0-36.0); MEAN CELL VOLUME 91.9 fl (80-96); MEAN PLT VOLUME 9.1 fl (7.5-11.1); PLATELET COUNT 288 K/MM3 (134-434); RDW 15.5 % (11.6-15.6); WHITE BLOOD COUNT 6.3 K/mm3 (4.0-10.0)
[2017-06-21 07:48] LABS: ANION GAP 5 (8-16); CALCIUM 8.7 mg/dL (8.5-10.1); CO2 30 mmol/L (21-32); CREATININE 0.6 mg/dL (0.55-1.02); GLUCOSE,RANDOM 88 mg/dL (74-106); MAGNESIUM 2.3 mg/dL (1.8-2.4); PHOSPHOROUS 2.9 mg/dL (2.5-4.9)
[2017-06-21 09:22] VITALS: PULSE 86; TEMP 97.9
[2017-06-21 09:23] VITALS: BP 176/83
[2017-06-21] MEDS ORDERED: PT OWN MED DRAWER 7, Y5N ONE (09:27)
[2017-06-21] MEDS: MULTIVITAMINS (DAILY MVI) TABLET (FP) PO SCH (09:28)
[2017-06-21] MEDS: LACTOBACILLUS ACIDOPHILUS 1 EACH TAB (FP) PO SCH (09:28)
[2017-06-21] MEDS: ASPIRIN 81 MG CHEWABLE TABLETS PO SCH (09:28)
[2017-06-21] MEDS: CYANOCOBALAMIN 1,000 MCG TABLET (FP) PO SCH (09:28)
[2017-06-21] MEDS: CHOLECALCIFEROL (VITAMIN D3) 1,000 UNIT TABLET (FP) PO SCH (09:28)
[2017-06-21] MEDS: ACLIDINIUM BROMIDE 400 MCG/INH AERO.POWD IH SCH (09:29)
[2017-06-21] MEDS: CEFTRIAXONE 50 ML IVPB SCH (09:29)
--- NOTE | 2017-06-21 10:56 | DS ---
Physical Examination Vital Signs: Vital Signs Temperature 97.9 F 06/21/17 08:30 Pulse Rate 86 06/21/17 08:30 Respiratory Rate 18 06/21/17 08:30 Blood Pressure 176/83 06/21/17 09:21 O2 Sat by Pulse Oximetry (%) 92 L 06/21/17 09:24 Constitutional: Yes: No Distress, Calm Eyes: No: Sclera Icterus Cardiovascular: Yes: Regular Rate and Rhythm Respiratory: Yes: CTA Bilaterally Gastrointestinal: Yes: Normal Bowel Sounds, Soft Neurological: Yes: Alert, Oriented Labs: CBC, BMP 06/21/17 06:15 06/21/17 06:15 Discharge Summary Reason For Visit: UTI Current Active Problems COPD (chronic obstructive pulmonary disease) (Chronic) HLD (hyperlipidemia) (Chronic) Hospital Course: Please refer to daily notes Treated for E Coli UTI with usual sensitivities Currently stable for discharge Follow-up with Dr Oleary Condition: Good - Instructions Diet, Activity, Other Instructions: As tolerated Low Na+ Referrals: Fredo Oleary MD [Primary Care Provider] - Disposition: HOME - Home Medications Comprehensive Discharge Medication List: Ambulatory Orders Aspirin [ASA -] 81 mg PO DAILY 08/09/13 Atorvastatin Ca [Lipitor] 20 mg PO DAILY 08/09/13 Multivitamins [Multivit ([facility] Formulary)] 1 tab PO DAILY 09/05/14 Cholecalciferol (Vitamin D3) [Vitamin D] 2,000 unit PO DAILY 11/03/15 Fiber [Fiber Choice] 1 each PO DAILY 11/03/15 Budesonide/Formeterol Fumarate [SYMBICORT 160/4.5mcg -] 1 inh IH PRN PRN Tiotropium [place] [Spiriva] 1 inh IH DAILY 06/19/17 Vitamin E 0 unit PO ASDIR 06/19/17 Cephalexin [Keflex] 500 mg PO BID #10 capsule 06/21/17 Cyanocobalamin [Vitamin B12 -] 1,000 mcg PO DAILY tablet 06/21/17 Lactobacillus Acidophilus [Bacid -] 1 tab PO DAILY tab 06/21/17 Methimazole [Tapazole -] 5 mg PO MoWeFr@1000 tablet 06/21/17
[2017-06-23] MEDS ORDERED: METHIMAZOLE 5 MG TABLET (FP) PO SCH (10:00)
== END 2017-06-21 11:13 | disposition home or self-care (01) | DRG 690 ==
LOC: JER 07:46 → JERBED 13:34 → J5S 15:00
PROVIDERS: ADMIT Internal Medicine; ATTEND Internal Medicine
DX: N39.0 Urinary tract infection, site not specified (principal); J98.11 Atelectasis; J44.9 Chronic obstructive pulmonary disease, unspecified; E05.90 Thyrotoxicosis, unspecified without thyrotoxic crisis or storm; E78.5 Hyperlipidemia, unspecified; E86.0 Dehydration; R53.1 Weakness; B96.20 Unspecified Escherichia coli [E. coli] as the cause of diseases classified elsewhere; Z87.891 Personal history of nicotine dependence; M81.0 Age-related osteoporosis without current pathological fracture; Z85.3 Personal history of malignant neoplasm of breast; I10 Essential (primary) hypertension
CPT/HCPCS: 36415; 71010-TC; 80048; 80053; 81003; 81015; 83735; 84100; 84484; 85025; 87040; 87086; 87186; 93005; 93010; 94010; 97116-GP; 97161-GP; 99283-25

== ENCOUNTER 2018-04-25 16:57 | Inpatient (IN) | payer OTHER ==
--- NOTE | 2018-04-25 17:31 | PDOC ---
History of Present Illness - General Chief Complaint: Weakness Stated Complaint: WEAKNESS Time Seen by Provider: 04/25/18 17:08 - History of Present Illness Initial Comments: 04/25/18 17:30 88 yo F with h/o DJD, OA, Hyperthyrodism, diverticulosis, HLD, COPD, AAA, Left sided breast cancer s/p radiation who p/w abdominal pain. Patient reports 2-3 days of diffuse abdominal discomfort, distension. Initially pain was crampy, but now sharp, and unremtiting, non positional, and worse with touch. Patient also complains of radiation to BL flank, and urinary hesitancy/dribbling. Denies dsyuria, or hematuria. Reports decreased PO intake, and denies postprandial pain. + Fatigue, nausea without vomiting. Normal bowel movements. Last BM yesterday evening. Normal flatulence. Dr. Teran Urologist. Patient reports h/o lesion on left kidney monitored with serial images. Denies F/C, CP, SOB,diarrhea, constipation, urinary complaints, vaginal discharge/bleeding, pelvic pain, weakness, lightheadedness, sensory changes. PMHx: as noted above. H/o cholecystectomy, hysterectomy. ROS: as noted above SHx: Tobacco cessation 10 years ago. Denies Etoh, or IVDA. Allergies: Sulfa medications. PMD: Fredo Oleary Past History - Past Medical History Allergies/Adverse Reactions: Allergies Allergy/AdvReac Type Severity Reaction Status Date / Time Sulfa (Sulfonamide Allergy "feels Verified 04/25/18 17:02 Antibiotics) like bugs are crawling in my skin" Home Medications: Ambulatory Orders Aspirin [ASA -] 81 mg PO DAILY 08/09/13 Atorvastatin Ca [Lipitor] 20 mg PO DAILY 08/09/13 Multivitamins [Multivit ([facility] Formulary)] 1 tab PO DAILY 09/05/14 Cholecalciferol (Vitamin D3) [Vitamin D] 2,000 unit PO DAILY 11/03/15 Fiber [Fiber Choice] 1 each PO DAILY 11/03/15 Budesonide/Formeterol Fumarate [SYMBICORT 160/4.5mcg -] 1 inh IH PRN PRN Tiotropium [place] [Spiriva] 1 inh IH DAILY 06/19/17 Vitamin E 0 unit PO ASDIR 08/10/17 Cephalexin [Keflex] 500 mg PO BID #10 capsule 06/21/17 Cyanocobalamin [Vitamin B12 -] 1,000 mcg PO DAILY tablet 06/21/17 Anemia: No Asthma: No Cancer: Yes (LEFT BREAST) Cardiac Disorders: Yes CVA: No COPD: Yes (EMPHYSEMA) CHF: No Dementia: No Diabetes: No GI Disorders: No Disorders: No HTN: Yes Hypercholesterolemia: Yes Liver Disease: No Seizures: No Thyroid Disease: Yes (hyper) - Surgical History Abdominal Surgery: No Appendectomy: Yes Cardiac Surgery: No Cholecystectomy: Yes Lung Surgery: (L BREAST LUMPECTOMY) Neurologic Surgery: No Orthopedic Surgery: Yes (R WRIST ORIF) - Immunization History Immunization Up to Date: Yes - Suicide/Smoking/Psychosocial Hx Smoking History: Former smoker Have you smoked in the past 12 months: No If you are a former smoker, when did you quit?: 2009 Information on smoking cessation initiated: No Hx Alcohol Use: No Drug/Substance Use Hx: No Substance Use Type: None Hx Substance Use Treatment: No Review of Systems - Review of Systems Comments:: 04/25/18 17:31 GENERAL/CONSTITUTIONAL: No fever or chills. No weakness. HEAD, EYES, EARS, NOSE AND THROAT: No change in vision. No ear pain or discharge. No sore throat. CARDIOVASCULAR: No chest pain or shortness of breath RESPIRATORY: No cough, wheezing, or hemoptysis. GASTROINTESTINAL: +nausea, and abdominal pain. No vomiting, diarrhea or constipation. GENITOURINARY: No dysuria, frequency, or change in urination. MUSCULOSKELETAL: No joint or muscle swelling or pain. No neck or back pain. SKIN: No rash NEUROLOGIC: No headache, vertigo, loss of consciousness, or change in strength/ sensation. ENDOCRINE: No increased thirst. No abnormal weight change HEMATOLOGIC/LYMPHATIC: No anemia, easy bleeding, or history of blood clots. ALLERGIC/IMMUNOLOGIC: No hives or skin allergy. *Physical Exam - Vital Signs Last Vital Signs Temp Pulse Resp BP Pulse Ox 98 F 98 H 18 149/69 99 04/25/18 16:58 04/25/18 16:58 04/25/18 16:58 04/25/18 16:58 04/25/18 16:58 - Physical Exam Comments: 04/25/18 17:31 GENERAL: Awake, alert, and fully oriented, in no acute distress HEAD: No signs of trauma, normocephalic, atraumatic EYES: PERRLA, EOMI, sclera anicteric, conjunctiva clear ENT: + Dry mucous membranes. Hearing grossly normal, nares patent, oropharynx clear without exudates. NECK: Normal ROM, supple, no lymphadenopathy, JVD, or masses LUNGS: No distress, speaks full sentences, clear to auscultation bilaterally HEART: Regular rate and rhythm, normal S1 and S2, no murmurs, rubs or gallops, peripheral pulses normal and equal bilaterally. ABDOMEN: + Diffuse abdominal distension, and diffusely ttp. BL flank ttp. Soft, normoactive bowel sounds. No guarding, no rebound. No masses. EXTREMITIES : Normal inspection, Normal range of motion, no edema. No clubbing or cyanosis. SKIN: Warm, Dry, normal turgor, no rashes or lesions noted ED Treatment Course - LABORATORY CBC & Chemistry Diagram: 04/25/18 18:12 04/25/18 21:26 Medical Decision Making - Medical Decision Making 04/25/18 17:52 88 yo F with h/o DJD, OA, Hyperthyrodism, diverticulosis, HLD, COPD, AAA, Left sided breast cancer s/p radiation who p/w abdominal pain. VSS, AF. Will consider AAA, cystitis, pyeloneprhitis, malignancy, colitis, appendicitis, diverticulitis. Low suspicion of mesenteric ischemia. ED Course: CBC,CMP, UA 04/25/18 18:37 04/25/18 19:01 UA: 2+ Leuk Est, 71 WBC WBC: 10.6 CMP: Unremarkable *DC/Admit/Observation/Transfer - Referrals Referrals: Fredo Oleary MD [Primary Care Provider] - - Patient Instructions - Post Discharge Activity
[2018-04-25] MEDS ORDERED: ACETAMINOPHEN 1000 MG/100 ML VIAL (NON FORMULARY) IVPB ONE (17:48)
[2018-04-25] MEDS ORDERED: ACETAMINOPHEN INJECTION 100 ML IVPB ONE (17:57)
[2018-04-25 18:20] LABS: EOS % 1.5 % (0-4.5); HEMATOCRIT 41.9 % (32.4-45.2); HEMOGLOBIN 13.9 GM/dL (10.7-15.3); LYMPH % 15.2 % (8-40); MCHC 33.1 g/dl (32.0-36.0); MEAN CELL VOLUME 90.7 fl (80-96); MEAN PLT VOLUME 10.6 fl (7.5-11.1); NEUT % 76.3 % (42.8-82.8); PLATELET COUNT 234 K/MM3 (134-434); RBC 4.62 M/mm3 (3.60-5.2); WHITE BLOOD COUNT 10.6 K/mm3 (4.0-10.0)
[2018-04-25 18:22] LABS: URINE APPEARANCE CLEAR; URINE BILIRUBIN NEGATIVE (<2.0 mg/dL); URINE COLOR DKYELLOW; URINE GLUCOSE (UA) NEGATIVE (NEGATIVE); URINE KETONE NEGATIVE (NEGATIVE); URINE NITRITE NEGATIVE (NEGATIVE); URINE UROBILINOGEN NEGATIVE mg/dL (0.2-1.0)
[2018-04-25 18:28] LABS: URINE LEUK ESTERASE 2+ (NEGATIVE); URINE PROTEIN 1+ (NEGATIVE)
[2018-04-25 18:31] LABS: EPI CELLS RARE /HPF (FEW); URINE MUCUS RARE
[2018-04-25 18:33] LABS: INR 0.96 (0.82-1.09); PROTHROMBIN TIME (PATIENT) 10.8 SEC (9.7-13.0)
[2018-04-25] MEDS ORDERED: morphine CARPU-JECT 4 MG/1 ML DISP.SYRIN IVPUSH ONE (19:14)
[2018-04-25] MEDS ORDERED: ONDANSETRON 4 MG/2 ML VIAL IVPUSH ONE (19:14)
[2018-04-25] MEDS ORDERED: morphine CARPU-JECT 2 MG/1 ML DISP.SYRIN IVPUSH ONE (19:15)
[2018-04-25] MEDS: SODIUM CHLORIDE 1,000 ML IV STA ×2 (20:05→22:50)
[2018-04-25] MEDS ORDERED: CEFTRIAXONE 1,000 MG in DEXTROSE 5%-WATER - 50 ML IVPB ONE (21:01)
[2018-04-25] MEDS ORDERED: MORPHINE SULFATE 2 MG/ML VIAL ONE (21:26)
[2018-04-25] MEDS ORDERED: ONDANSETRON 4 MG/2 ML VIAL ONE (21:32)
[2018-04-25] MEDS ORDERED: CEFTRIAXONE 1 GM/50 ML BAG ONE (21:33)
--- NOTE | 2018-04-25 21:37 | PDOC ---
Attending Attestation - Resident Resident Name: Abhay Diasson - ED Attending Attestation I have performed the following: I have examined & evaluated the patient, The case was reviewed & discussed with the resident, I agree w/resident's findings & plan - HPI HPI: 04/25/18 21:33 88-year-old female presents with several days of worsening lower abdominal pain , urinary dribbling and urgency. No fevers or chills, no flank pain. Per family, has had several months of decreased oral intake with weight loss, is in the middle of outpatient GI workup endoscopy scheduled on Friday. - Physicial Exam PE: 04/25/18 21:35 Afebrile, uncomfortable Alert, lying in stretcher, speaking full sentences Abdomen is soft but distended, diffusely tender greatest in the suprapubic region. No CVA tenderness. - Medical Decision Making 04/25/18 21:35 Patient seen and evaluated with the resident. I agree with the overall evaluation, assessment, and management with the following summary of visit: 88-year-old female with several days of worsening abdominal pain and urinary complaints. Presentation seems most consistent with UTI, but tenderness is quite diffuse and in the setting of ongoing GI issues. Check labs, urinalysis CT of the abdomen and pelvis Pain control Reassess Workup revealed slightly elevated white count, chemistries hemolyzed and repeated, urinalysis with 71 white blood cells and evidence of infection. Urine culture sent, will start ceftriaxone, awaiting CAT scan. 04/26/18 01:06 CAT scan with nonspecific thickening/inflammatory changes in the right colon, question colitis. On reexamination, patient does have tenderness with some guarding in the right mid/upper abdomen which would not be explained by her UTI. Will broaden antibiotic coverage and admitted for pain control. Dr. Paris called. 04/26/18 01:12 accepted for obs med/surg by Dr. Paris. Heart Score/ECG Review #1 ECG reviewed & interpreted by me at: 18:16 General ECG Interpretation: Sinus Rhythm, Normal Rate (91), Normal Intervals ( qtc 467), No acute ischemic changes
[2018-04-25 21:58] LABS: ALBUMIN 3.7 g/dl (3.4-5.0); ANION GAP 7 (8-16); BILIRUBIN,TOTAL 0.4 mg/dL (0.2-1.0); BLOOD UREA NITROGEN 15 mg/dL (7-18); CALCIUM 8.6 mg/dL (8.5-10.1); CHLORIDE 107 mmol/L (98-107); CO2 29 mmol/L (21-32); CREATININE 0.6 mg/dL (0.55-1.02); GLUCOSE,RANDOM 87 mg/dL (74-106); POTASSIUM 3.7 mmol/L (3.5-5.1); SGOT/AST 19 U/L (15-37); SGPT/ALT 19 U/L (12-78); SODIUM 143 mmol/L (136-145); TOT PROT 6.3 g/dl (6.4-8.2)
[2018-04-25 21:59] LABS: ALK PHOS 67 U/L (45-117)
[2018-04-25] MEDS ORDERED: traMADol HCL 50 MG TABLET PO ONE (22:21)
[2018-04-25] MEDS ORDERED: traMADol HCL 50 MG TABLET ONE (22:47)
[2018-04-26] MEDS ORDERED: PIPERACILLIN/TAZOB 3.375 GM 3.375 GM in DEXTROSE 5%-WATER - 50 ML IVPB ONE (01:06)
[2018-04-26] MEDS ORDERED: morphine CARPU-JECT 2 MG/1 ML DISP.SYRIN IVPUSH ONE (01:11)
[2018-04-26] MEDS ORDERED: MORPHINE SULFATE 2 MG/ML VIAL IVPUSH PRN (01:21)
[2018-04-26] MEDS ORDERED: ONDANSETRON 4 MG/2 ML VIAL IVPUSH PRN (01:23)
[2018-04-26] MEDS ORDERED: SODIUM CHLORIDE 0.45% 1,000 ML IV SCH (01:30)
[2018-04-26] MEDS ORDERED: MORPHINE SULFATE 2 MG/ML VIAL ONE (02:58)
[2018-04-26] MEDS ORDERED: PIPERACILLIN/TAZOB 3.375 GM 3.375 GM/50 ML BAG IVPB ONE (02:58)
--- NOTE | 2018-04-26 08:55 | EKG ---
Test Reason : Blood Pressure : / mmHG Vent. Rate : 091 BPM Atrial Rate : 091 BPM P-R Int : 214 ms QRS Dur : 080 ms QT Int : 380 ms P-R-T Axes : 054 -38 057 degrees QTc Int : 467 ms SINUS RHYTHM WITH 1ST DEGREE A-V BLOCK POSSIBLE LEFT ATRIAL ENLARGEMENT LEFT AXIS DEVIATION SEPTAL INFARCT (CITED ON OR BEFORE 19-JUN-2017) ABNORMAL ECG WHEN COMPARED WITH ECG OF 19-JUN-2017 08:38, MD INTERVAL HAS INCREASED Confirmed by MARIA DEL CARMEN CRYSTAL, MARIE ([id number]) on 04/26/2018 8:55:29 AM Referred By: Confirmed By:MARIE JOYCE MD
[2018-04-26] MEDS: ASPIRIN 81 MG CHEWABLE TABLETS PO SCH (09:18)
[2018-04-26] MEDS: CYANOCOBALAMIN 1,000 MCG TABLET (FP) PO SCH (09:18)
[2018-04-26] MEDS: CHOLECALCIFEROL (VITAMIN D3) 1,000 UNIT TABLET (FP) PO SCH (09:18)
[2018-04-26] MEDS: HEPARIN NA (PORCINE) 5,000 UNITS/ML 1ML VIAL SQ SCH ×2 (09:18→21:31)
[2018-04-26] MEDS: MULTIVITAMINS (DAILY MVI) TABLET (FP) PO SCH (09:18)
[2018-04-26] MEDS: ATORVASTATIN CA 20 MG TABLET (FP) PO SCH (09:18)
[2018-04-26] MEDS: ACETAMINOPHEN 325 MG TABLET (FP) PO PRN ×2 (10:10→21:31)
[2018-04-26] MEDS ORDERED: ACETAMINOPHEN 325 MG TABLET (FP) ONE (10:11)
[2018-04-26] MEDS ORDERED: ALBUTEROL SO4 0.083% IH SOL 2.5 MG/3 ML VIAL.NEB. NEB ONE (12:33)
[2018-04-26] MEDS: PANTOPRAZOLE 40 MG TABLET (FP) PO SCH (12:58)
[2018-04-26] MEDS: TIOTROPIUM BROMIDE 18 MCG CAPSULES IH SCH (12:58)
[2018-04-26] MEDS: BUDESONIDE/FORMETEROL FUMARATE 160/4.5 mcg INHALER IH SCH ×2 (12:59→22:42)
--- NOTE | 2018-04-26 13:05 | HP ---
Admitting History and Physical - Admission Chief Complaint: abd pain History of Present Illness: 88 yo F presents to hospital with abd pain. Patient for a few weeks now has had difficulty swallowing, getting evaluated with GI (has upcoming appt later this week) but began to develop sharp pain in lower abdomen. Pain is mostly on right side, but also suprapubic area. In ED she was found to have UTI, so her symptoms were at first thought to be due to this, but as pain continued despite several doses of pain medicaiton she received CT scan of abdomen, which did show thickened coon, c/w colitis. Patient notes pain is ecreased this morning, but still there. No blood noted in stool. Does continue to have decreased appetite and feels food gets "stuck" when swallowing, which is why she was to see GI. No fevers noted. Dtr does note that patient seemed agitated/ confused this morning, but appears calm now (had received several doses of pain medication throughout the night). Does also note that her neck is bothering her , as awaiting bed upstairs in hospital and still on ED stretcher (has been there all night). History Source: Patient, Family Member, Medical Record Limitations to Obtaining History: No Limitations - Past Medical History Pulmonary: Yes: COPD Heme/Onc: Yes: Cancer (breast) Musculoskeletal: Yes: Osteoarthritis Endocrine: Yes: Hyperthyroidism - Past Surgical History Past Surgical History: Yes: Cholecystectomy, Hysterectomy - Smoking History Smoking history: Former smoker Have you smoked in the past 12 months: No If you are a former smoker, when did you quit?: 2009 - Alcohol/Substance Use Hx Alcohol Use: No History of Substance Use: reports: None - Social History ADL: Independent History of Recent Travel: No Home Medications - Allergies Allergies/Adverse Reactions: Allergies Allergy/AdvReac Type Severity Reaction Status Date / Time Sulfa (Sulfonamide Allergy "feels Verified 04/25/18 17:02 Antibiotics) like bugs are crawling in my skin" - Home Medications Home Medications: Ambulatory Orders Aspirin [ASA -] 81 mg PO DAILY 08/09/13 Atorvastatin Ca [Lipitor] 20 mg PO DAILY 08/09/13 Multivitamins [Multivit ([facility] Formulary)] 1 tab PO DAILY 09/05/14 Cholecalciferol (Vitamin D3) [Vitamin D] 2,000 unit PO DAILY 11/03/15 Fiber [Fiber Choice] 1 each PO DAILY 11/03/15 Budesonide/Formeterol Fumarate [SYMBICORT 160/4.5mcg -] 1 inh IH PRN PRN Tiotropium [place] [Spiriva] 1 inh IH DAILY 06/19/17 Vitamin E 0 unit PO ASDIR 06/19/17 Cephalexin [Keflex] 500 mg PO BID #10 capsule 06/21/17 Cyanocobalamin [Vitamin B12 -] 1,000 mcg PO DAILY tablet 06/21/17 Family Disease History - Family Disease History Family Disease History: CA: Mother (ovarian), Other: Father (pneumonia), Son ( CVA) Review of Systems - Review of Systems Constitutional: reports: Loss of Appetite. denies: Fever, Lethargy Eyes: reports: No Symptoms HENT: reports: Difficult Swallowing. denies: Epistaxis Neck: denies: Decreased ROM, Stiffness Cardiovascular: denies: Chest Pain, Palpitations Respiratory: denies: Cough, SOB, Wheezing Gastrointestinal: reports: Abdominal Pain. denies: Melena, Nausea, Rectal Bleeding, Vomiting, Vomiting Blood Genitourinary: reports: Burning. denies: Discharge, Dysuria Physical Examination Vital Signs: Vital Signs Temperature 98.6 F 04/26/18 07:10 Pulse Rate 96 H 04/26/18 07:10 Respiratory Rate 15 04/26/18 07:10 Blood Pressure 145/70 04/26/18 07:10 O2 Sat by Pulse Oximetry (%) 100 04/26/18 07:10 Constitutional: Yes: No Distress, Calm Eyes: Yes: Conjunctiva Clear, EOM Intact, PERRL HENT: Yes: Atraumatic, Normocephalic Neck: Yes: Supple, Trachea Midline Cardiovascular: Yes: Regular Rate and Rhythm, S1, S2. No: Murmur Respiratory: Yes: Regular, CTA Bilaterally. No: Rales, Rhonchi, Wheezes Gastrointestinal: Yes: Normal Bowel Sounds, Soft, Tenderness (, mildly, in RLQ, suparapubic areas, no guarding). No: Tenderness, Rebound Edema: No Neurological: Yes: Alert, Oriented Labs: CBC, BMP 04/25/18 18:12 04/25/18 21:26 Imaging - Results Cat Scan: Other (CT abd/pelv: non-specific thickened/ inflammation of colon on right side) Problem List - Problems (1) Colitis Assessment/Plan: -start abx (to cover UTI as well) -GI consult -pain control, but will have to be aware of constipating effects Code(s): K52.9 - NONINFECTIVE GASTROENTERITIS AND COLITIS, UNSPECIFIED (2) Urinary tract infection Assessment/Plan: -start levaquin Code(s): N39.0 - URINARY TRACT INFECTION, SITE NOT SPECIFIED (3) Dysphagia Assessment/Plan: -does not seem to be due to colitis, but GI to evaluate (esophageal web or stricture?) -to start on PPI Code(s): R13.10 - DYSPHAGIA, UNSPECIFIED (4) COPD (chronic obstructive pulmonary disease) Assessment/Plan: cont inhalers Code(s): J44.9 - CHRONIC OBSTRUCTIVE PULMONARY DISEASE, UNSPECIFIED
[2018-04-26] MEDS ORDERED: oxyCODONE HCL 5 MG TABLET ONE (13:38)
[2018-04-26] MEDS: oxyCODONE HCL 5 MG TABLET PO PRN ×2 (13:40→21:31)
[2018-04-26 17:08] VITALS: BMI 19.7
--- NOTE | 2018-04-26 21:19 | CON.GI ---
Consult Consult Specialty:: GI for Dr. Main Reason for Consultation:: dysphagia, colitis - History of Present Illness History of Present Illness: Anthony Dr. Main, who will assume care tomorrow. Chart reviewed. Per initial encounter in ED: 88-year-old female presents with several days of worsening lower abdominal pain, urinary dribbling and urgency. No fevers or chills, no flank pain. Per family, has had several months of decreased oral intake with weight loss, is in the middle of outpatient GI workup endoscopy scheduled on Friday. At the time of this encounter the patient appeared not in distress, AAOx3, not in pain. Main concern expressed was difficulty swallowing for the last 2-3 months, solids, non-progressive, no halitosis, or regurgitation of undigested food. No history of chronic GERD, dyspepsia, reflux. Not on PPI now, and no history of chronic PPI use in the past. Sally loss due to decreased PO intake. No nausea, vomiting, fever, chills, melena, hematochezia, or hematemesis. Has chronic constipation, but with laxatives has daily BMs. Last BM [address] A/P noted dilated colon with fluid and stool w/o obvious inflammatory changes. Mild leukocytosis and positive leukocytes in urine, otherwise normal CBC, and CMP. - History Source History Provided By: Patient, Medical Record - Past Medical History Pulmonary: Yes: COPD ...: No Musculoskeletal: Yes: Osteoarthritis Endocrine: Yes: Hyperthyroidism - Past Surgical History Past Surgical History: Yes: Cholecystectomy, Hysterectomy - Alcohol/Substance Use Hx Alcohol Use: No History of Substance Use: reports: None - Smoking History Smoking history: Former smoker Have you smoked in the past 12 months: No If you are a former smoker, when did you quit?: 2009 - Social History ADL: Independent History of Recent Travel: No Home Medications - Allergies Allergies/Adverse Reactions: Allergies Allergy/AdvReac Type Severity Reaction Status Date / Time Sulfa (Sulfonamide Allergy "feels Verified 04/25/18 17:02 Antibiotics) like bugs are crawling in my skin" - Home Medications Home Medications: Ambulatory Orders Aspirin [ASA -] 81 mg PO DAILY 08/09/13 Atorvastatin Ca [Lipitor] 20 mg PO DAILY 08/09/13 Multivitamins [Multivit ([facility] Formulary)] 1 tab PO DAILY 09/05/14 Cholecalciferol (Vitamin D3) [Vitamin D] 2,000 unit PO DAILY 11/03/15 Fiber [Fiber Choice] 1 each PO DAILY 11/03/15 Budesonide/Formeterol Fumarate [SYMBICORT 160/4.5mcg -] 1 inh IH PRN PRN Tiotropium [place] [Spiriva] 1 inh IH DAILY 06/19/17 Vitamin E 0 unit PO ASDIR 06/19/17 Cephalexin [Keflex] 500 mg PO BID #10 capsule 06/21/17 Cyanocobalamin [Vitamin B12 -] 1,000 mcg PO DAILY tablet 06/21/17 Family Disease History - Family Disease History Family Disease History: CA: Mother (ovarian), Other: Father (pneumonia), Son ( CVA) Review of Systems Findings/Remarks: as per HPI, H&P and ED Physical Exam-GI Vital Signs: Vital Signs Temperature 98.4 F 04/26/18 19:00 Pulse Rate 76 04/26/18 19:00 Respiratory Rate 18 04/26/18 19:00 Blood Pressure 106/54 04/26/18 19:00 O2 Sat by Pulse Oximetry (%) 94 L 04/26/18 18:11 Constitutional: Yes: Well Nourished, No Distress, Calm Eyes: Yes: Conjunctiva Clear HENT: Yes: Atraumatic Neck: Yes: Supple Cardiovascular: Yes: Regular Rate and Rhythm Respiratory: Yes: Regular Gastrointestinal Inspection: No: Ascites, Distention ...Auscultate: Yes: Normoactive Bowel Sounds ...Palpate: Yes: Soft. No: Firm/Rigid, Guarding, Mass, Tenderness Neurological: Yes: Alert, Oriented Labs: CBC, BMP 04/25/18 18:12 04/25/18 21:26 INR, PTT INR 0.96 (0.82-1.09) 04/25/18 18:12 Laboratory Last Values WBC 10.6 K/mm3 (4.0-10.0) H D 04/25/18 18:12 RBC 4.62 M/mm3 (3.60-5.2) 04/25/18 18:12 Hgb 13.9 GM/dL (10.7-15.3) 04/25/18 18:12 Hct 41.9 % (32.4-45.2) 04/25/18 18:12 MCV 90.7 fl (80-96) 04/25/18 18:12 MCH 30.0 pg (25.7-33.7) 04/25/18 18:12 MCHC 33.1 g/dl (32.0-36.0) 04/25/18 18:12 RDW 16.0 % (11.6-15.6) H 04/25/18 18:12 Plt Count 234 K/MM3 (134-434) 04/25/18 18:12 MPV 10.6 fl (7.5-11.1) D 04/25/18 18:12 Absolute Neuts (auto) 8.1 # 04/25/18 18:12 Neutrophils % 76.3 % (42.8-82.8) 04/25/18 18:12 Lymphocytes % 15.2 % (8-40) 04/25/18 18:12 Monocytes % 6.0 % (3.8-10.2) 04/25/18 18:12 Eosinophils % 1.5 % (0-4.5) 04/25/18 18:12 Basophils % 1.0 % (0-2.0) 04/25/18 18:12 Nucleated RBC % 0 % (0-0) 04/25/18 18:12 PT with INR 10.80 SEC (9.7-13.0) 04/25/18 18:12 INR 0.96 (0.82-1.09) 04/25/18 18:12 Sodium 143 mmol/L (136-145) 04/25/18 21:26 Potassium 3.7 mmol/L (3.5-5.1) 04/25/18 21:26 Chloride 107 mmol/L (98-107) 04/25/18 21:26 Carbon Dioxide 29 mmol/L (21-32) 04/25/18 21:26 Anion Gap 7 (8-16) L 04/25/18 21:26 BUN 15 mg/dL (7-18) 04/25/18 21:26 Creatinine 0.6 mg/dL (0.55-1.02) 04/25/18 21:26 Creat Clearance w eGFR > 60 (>60) 04/25/18 21:26 Random Glucose 87 mg/dL (74-106) 04/25/18 21:26 Calcium 8.6 mg/dL (8.5-10.1) 04/25/18 21:26 Total Bilirubin 0.4 mg/dL (0.2-1.0) 04/25/18 21:26 AST 19 U/L (15-37) 04/25/18 21:26 ALT 19 U/L (12-78) 04/25/18 21:26 Alkaline Phosphatase 67 U/L (45-117) 04/25/18 21:26 Total Protein 6.3 g/dl (6.4-8.2) L 04/25/18 21:26 Albumin 3.7 g/dl (3.4-5.0) 04/25/18 21:26 Urine Color Dkyellow 04/25/18 18:12 Urine Appearance Clear 04/25/18 18:12 Urine pH 6.0 (5.0-8.0) 04/25/18 18:12 Ur Specific [place] 1.028 (1.001-1.035) 04/25/18 18:12 Urine Protein 1+ (NEGATIVE) H 04/25/18 18:12 Urine Glucose (UA) Negative (NEGATIVE) 04/25/18 18:12 Urine Ketones Negative (NEGATIVE) 04/25/18 18:12 Urine Blood Negative (NEGATIVE) 04/25/18 18:12 Urine Nitrite Negative (NEGATIVE) 04/25/18 18:12 Urine Bilirubin Negative (<2.0 mg/dL) 04/25/18 18:12 Urine Urobilinogen Negative mg/dL (0.2-1.0) 04/25/18 18:12 Ur Leukocyte Esterase 2+ (NEGATIVE) H 04/25/18 18:12 Urine WBC (Auto) 71 /hpf (3-5) 04/25/18 18:12 Urine RBC (Auto) 6 /hpf (0-3) 04/25/18 18:12 Ur Epithelial Cells Rare /HPF (FEW) 04/25/18 18:12 Urine Mucus Rare 04/25/18 18:12 Imaging - Results Cat Scan: Report Reviewed Problem List - Problems (1) Ileus Code(s): K56.7 - ILEUS, UNSPECIFIED (2) Dysphagia Code(s): R13.10 - DYSPHAGIA, UNSPECIFIED Assessment/Plan An 88F with radiological evidence of Ileus w/o significant findings on the abdominal exam (?reactive to UTI?). Normal electrolytes. History of constipation. Treat UTI, avoid opiates, miralax po tid, bowel rest today. EGD to evaluate the dysphagia discussed with the patient. Dr. Main will assume care tomorrow.
[2018-04-26] MEDS ORDERED: PT OWN MED DRAWER 7, Y5N ONE (21:27)
[2018-04-27 08:09] LABS: BASO % 0.8 % (0-2.0); HEMATOCRIT 33.9 % (32.4-45.2); HEMOGLOBIN 11.6 GM/dL (10.7-15.3); LYMPH % 14.8 % (8-40); MCH 30.6 pg (25.7-33.7); MCHC 34.1 g/dl (32.0-36.0); MEAN CELL VOLUME 89.6 fl (80-96); MEAN PLT VOLUME 9.7 fl (7.5-11.1); MONO % 9.1 % (3.8-10.2); NEUT % 71.3 % (42.8-82.8); PLATELET COUNT 191 K/MM3 (134-434); RBC 3.79 M/mm3 (3.60-5.2); RDW 15.3 % (11.6-15.6); WHITE BLOOD COUNT 6.4 K/mm3 (4.0-10.0)
[2018-04-27 08:31] LABS: CHLORIDE 103 mmol/L (98-107); POTASSIUM 3.7 mmol/L (3.5-5.1); SODIUM 140 mmol/L (136-145)
[2018-04-27 08:37] LABS: ALBUMIN 2.9 g/dl (3.4-5.0); ALK PHOS 96 U/L (45-117); ANION GAP 9 (8-16); BILIRUBIN,TOTAL 0.4 mg/dL (0.2-1.0); BLOOD UREA NITROGEN 9 mg/dL (7-18); CALCIUM 7.8 mg/dL (8.5-10.1); CO2 28 mmol/L (21-32); CREATININE 0.4 mg/dL (0.55-1.02); GLUCOSE,RANDOM 83 mg/dL (74-106); SGOT/AST 73 U/L (15-37); SGPT/ALT 87 U/L (12-78); TOT PROT 5.3 g/dl (6.4-8.2)
[2018-04-27] MEDS: BUDESONIDE/FORMETEROL FUMARATE 160/4.5 mcg INHALER IH SCH ×2 (09:13→21:11)
[2018-04-27] MEDS: ASPIRIN 81 MG CHEWABLE TABLETS PO SCH (09:13)
[2018-04-27] MEDS: CHOLECALCIFEROL (VITAMIN D3) 1,000 UNIT TABLET (FP) PO SCH (09:13)
[2018-04-27] MEDS: CYANOCOBALAMIN 1,000 MCG TABLET (FP) PO SCH (09:14)
[2018-04-27] MEDS: MULTIVITAMINS (DAILY MVI) TABLET (FP) PO SCH (09:14)
[2018-04-27] MEDS: HEPARIN NA (PORCINE) 5,000 UNITS/ML 1ML VIAL SQ SCH ×2 (09:15→21:06)
[2018-04-27] MEDS: ATORVASTATIN CA 20 MG TABLET (FP) PO SCH (09:15)
[2018-04-27] MEDS: ACETAMINOPHEN 325 MG TABLET (FP) PO PRN (09:23)
[2018-04-27] MEDS: PANTOPRAZOLE 40 MG TABLET (FP) PO SCH (09:23)
[2018-04-27] MEDS: DOCUSATE SODIUM 100 MG CAPSULE (FP) PO PRN ×2 (09:23→21:09)
[2018-04-27] MEDS: TIOTROPIUM BROMIDE 18 MCG CAPSULES IH SCH (09:24)
--- NOTE | 2018-04-27 10:14 | PN ---
Progress Note, Physician Chief Complaint: Pt lying in bed in no acute distress. Reports she is feeling better. tolerating full liquids. still has some lower abdominal pressure when urinating. no bm yet , passing flatus. reports headache, upper back pain radiating to arms- chronic, takes flexeril at home. Otherwise, pt denies any chest pain, sob, n/v/d. - Current Medication List Current Medications: Active Medications Acetaminophen (Tylenol -) 650 mg PO Q4H PRN PRN Reason: HEADACHE Last Admin: 04/27/18 09:23 Dose: 650 mg Aspirin (Asa -) 81 mg PO DAILY [facility] Last Admin: 04/27/18 09:13 Dose: 81 mg Atorvastatin Calcium (Lipitor -) 20 mg PO DAILY [facility] Last Admin: 04/27/18 09:15 Dose: 20 mg Budesonide/Formoterol Fumarate (Symbicort 160/4.5mcg -) 1 puff IH BID [facility] Last Admin: 04/27/18 09:13 Dose: 1 puff Cholecalciferol (Vitamin D3 -) 2,000 unit PO DAILY [facility] Last Admin: 04/27/18 09:13 Dose: 2,000 unit Cyanocobalamin (Vitamin B12 -) 1,000 mcg PO DAILY [facility] Last Admin: 04/27/18 09:14 Dose: 1,000 mcg Docusate Sodium (Colace -) 100 mg PO BID PRN PRN Reason: CONSTIPATION Last Admin: 04/27/18 09:23 Dose: 100 mg Heparin Sodium (Porcine) (Heparin -) 5,000 unit SQ BID [facility] Last Admin: 04/27/18 09:15 Dose: 5,000 unit Levofloxacin (Levaquin 500 Mg Premixed Ivpb -) 500 mg in 100 mls @ 100 mls/hr IVPB DAILY [facility]; Protocol Last Admin: 04/27/18 09:15 Dose: 100 mls/hr Morphine Sulfate (Morphine Sulfate) 2 mg IVPUSH Q3H PRN PRN Reason: PAIN LEVEL 6-10 Last Admin: 04/27/18 04:35 Dose: 2 mg Multivitamins/Minerals/Vitamin C (Tab-A-Vit -) 1 tab PO DAILY [facility] Last Admin: 04/27/18 09:14 Dose: 1 tab Ondansetron HCl (Zofran Injection) 4 mg IVPUSH Q6H PRN PRN Reason: NAUSEA Oxycodone HCl (Roxicodone -) 5 mg PO Q3H PRN PRN Reason: PAIN LEVEL 1-5 Last Admin: 04/26/18 21:31 Dose: 5 mg Pantoprazole Sodium (Protonix -) 40 mg PO DAILY [facility] Last Admin: 04/27/18 09:23 Dose: 40 mg Tiotropium [place] (Spiriva -) 1 puff IH DAILY [facility] Last Admin: 04/27/18 09:24 Dose: 1 puff - Objective Vital Signs: Vital Signs Temperature 98.5 F 04/27/18 05:30 Pulse Rate 76 04/27/18 05:30 Respiratory Rate 18 04/27/18 03:00 Blood Pressure 127/60 04/27/18 05:30 O2 Sat by Pulse Oximetry (%) 96 04/26/18 21:00 Constitutional: Yes: No Distress, Calm, Thin Cardiovascular: Yes: WNL, Regular Rate and Rhythm. No: Gallop, Murmur Respiratory: Yes: Regular, CTA Bilaterally, Diminished, On Nasal O2. No: SOB, Stridor, Tachypnea, Wheezes Gastrointestinal: Yes: WNL, Normal Bowel Sounds, Soft Genitourinary: Yes: WNL Edema: No Neurological: Yes: WNL, Alert, Oriented ...Motor Strength: WNL Psychiatric: Yes: WNL, Alert, Oriented Labs: CBC, BMP 04/27/18 07:19 04/27/18 07:19 INR, PTT INR 0.96 (0.82-1.09) 04/25/18 18:12 - ....Imaging Cat Scan: Report Reviewed (CT A/P dilated colon with fluid and stool w/o inflammatory changes) Problem List - Problems (1) Dysphagia Assessment/Plan: dysphagia, unintentional weight loss 15lbs over the last few months, poor appetite, getting work up outpt, egd outpt Friday pt had barium swallow study over a month ago tolerating full liquids speech eval pending GI following Code(s): R13.10 - DYSPHAGIA, UNSPECIFIED (2) Ileus Assessment/Plan: improved abd pain, +flatus, +bs, -bm miralax tid gi following Code(s): K56.7 - ILEUS, UNSPECIFIED (3) Urinary tract infection Assessment/Plan: UA +/UC pending iv antibiotic day 2 levofloxacin x 2 days, d/c'd in the setting on acute transaminitis ceftriaxone ordered Code(s): N39.0 - URINARY TRACT INFECTION, SITE NOT SPECIFIED Qualifiers: Urinary tract infection type: acute cystitis Hematuria presence: without hematuria Qualified Code(s): N30.00 - Acute cystitis without hematuria (4) Transaminitis Assessment/Plan: acute, over the last 48 hours suspect drug induced levofloxacin/tylenol d/c'd hold statin hepatitis panel ordered acetaminophen level wnl GI following Code(s): R74.0 - NONSPEC ELEV OF LEVELS OF TRANSAMNS & LACTIC ACID DEHYDRGNSE (5) Hypokalemia Assessment/Plan: mild, secondary to reduced po intake KCL PO [id number] monitor bmp Code(s): E87.6 - HYPOKALEMIA (6) COPD (chronic obstructive pulmonary disease) Assessment/Plan: chronic continue symbicort/spiriva followed by outpt Code(s): J44.9 - CHRONIC OBSTRUCTIVE PULMONARY DISEASE, UNSPECIFIED (7) DJD (degenerative joint disease) of cervical spine Assessment/Plan: stable intermittent pain radiating to upper extremities flexeril bid Code(s): M47.812 - SPONDYLOSIS W/O MYELOPATHY OR RADICULOPATHY, CERVICAL REGION (8) HLD (hyperlipidemia) Assessment/Plan: stable holding statin in the setting of acute transaminitis Code(s): E78.5 - HYPERLIPIDEMIA, UNSPECIFIED (9) Hyperthyroidism Assessment/Plan: last tsh wnl followed by Endocrine outpt, Tapazole 3x/week Code(s): E05.90 - THYROTOXICOSIS, UNSP WITHOUT THYROTOXIC CRISIS OR STORM (10) HTN (hypertension) Assessment/Plan: controlled off meds will monitor Code(s): I10 - ESSENTIAL (PRIMARY) HYPERTENSION Qualifiers: Hypertension type: essential hypertension Qualified Code(s): I10 - Essential (primary) hypertension (11) Renal mass, right Assessment/Plan: followed closely by Code(s): N28.89 - OTHER SPECIFIED DISORDERS OF KIDNEY AND URETER Assessment/Plan Dispo: Home, awaiting GI clearance
[2018-04-27] MEDS ORDERED: CYCLOBENZAPRINE HCL 5 MG TABLET PO SCH (10:45)
[2018-04-27] MEDS: POLYETHYLENE GLYCOL 3350 119 GM BTL PO SCH ×3 (13:59→21:11)
[2018-04-27] MEDS ORDERED: POTASSIUM CHLORIDE TABS 20 MEQ TABLET.ER (FP) PO ONE (14:43)
--- NOTE | 2018-04-27 15:22 | CONSULT ---
Admitting History and Physical - Primary Care Physician PCP: Lisa Scott - Admission History of Present Illness: 88 yo F presents to hospital with abd pain and unintentional weight loss, pending GI work up. [place]oler[place] full [place] [place] moderate statis of solids throughout esophagus, delayed emptying. Alternate solids with liquids/complete meal with liquids,f/u by GI. History Source: Patient, Family Member, Medical Record Limitations to Obtaining History: No Limitations - Past Medical History Pulmonary: Yes: COPD ...: No Heme/Onc: Yes: Cancer (breast) Musculoskeletal: Yes: Osteoarthritis Endocrine: Yes: Hyperthyroidism - Past Surgical History Past Surgical History: Yes: Cholecystectomy, Hysterectomy - Smoking History Smoking history: Former smoker Have you smoked in the past 12 months: No If you are a former smoker, when did you quit?: 2009 - Alcohol/Substance Use Hx Alcohol Use: No History of Substance Use: reports: None - Social History ADL: Independent History of Recent Travel: No History - Admission Reason For Visit: COLITIS UTI - Diagnostics Modified Barium Swallow: [place] [place] moderate statis of solids throughot esophagus, delayed emptying. Alternate solids with liquids/ complete meal with liquids,f/u by GI.) - General Mental Status: Alert and Oriented, Awake and Alert, Able to Follow Commands Attention: Intact Ability to Follow Directions: Excellent Head/Neck Control: WFL - Hearing Hearing: Normal Speech Evaluation - Communication Primary Language: FAROESE Communication: Yes: Within Normal Limits Oral Expression Ability: Yes: No Impairment - Speech Characteristics Voice Loudness: Normal Voice Pitch: Yes: Normal Voice Phonatory-based Quality: Yes: Normal Speech Pattern: Normal Speech Clarity: < 100% Nasal Resonance: Normal Articulation: Yes: Precise - Language/Auditory Comprehension Follows: Yes: 2 Stage Simple Commands - Language/Verbal Expression Able to Respond to Simple Queries: Yes: WNL Able to Communicate Wants and Needs: Yes: WNL Functional Communication Status: Yes: WNL - Swallow Evaluation/Bedside Assessment Current Nutritional Intake: Full Liquids Oral Secretions: Yes: WFL (No thrush identified in oral cavity) Dentition: Yes: Adequate Facial Symmetry at Rest: Symmetrical Facial Symmetry on Retraction: Symmetrical Facial Movement: Controlled Sensation: Normal Against Resistance Opening: Normal Against Resistance Closing: Normal Pucker Lips: Normal Smile: Normal Lingual Movement: Normal, Symmetric Lingual Speed of Movement: Normal Lingual Movement Strgth Against Opposition: Normal Lingual Movement Characteristics: Normal Velopharyngeal Movement: Normal Laryngeal Elevation: WFL Laryngeal Movement: Able to Palpate Rate of Intake: WFL Bolus Size: WFL Labial Seal: WFL Chewing: WFL Oral Prep Time: WFL A-P Transit: WFL Pocketing: None Timing of Swallow: WFL Coughing/Throat Clear: No Change in Voice: No Recommendations - Speech Evaluation, Impression/Plan Impression: oral pharyngeal swallowing WNL. r/o esophageal dysphagia. - Dysphagia Impressions/Plan Dysphagia Impressions: Ongoing Evaluation *Silent aspiration: cannot be R/O at bedside Dysphagia Treatment Plan: Small Bites, Chin Tuck/Down, Safe Rate, 1/2 tsp. at a time, OOB for meals, OOB for 1 h. after meals Recommendations: GI Consult, Other (PO as tolerated.OOB for meals. Diet upgrade , as tolerated, per GI. Alternate with liquid with each bite. complete meal with liquids. Small amounts throughout the day, allow esoph to empty.) - Recommendations Supplement: Ensure ([place])
[2018-04-27] MEDS ORDERED: PT OWN MED DRAWER 7, Y5N ONE (20:41)
[2018-04-27] MEDS: CYCLOBENZAPRINE HCL 10 MG TABLET (FP) PO SCH (21:45)
[2018-04-28 06:06] LABS: HEP.C VIRUS AB <0.1 s/co ratio (0.0-0.9)
[2018-04-28] MEDS: POLYETHYLENE GLYCOL 3350 119 GM BTL PO SCH ×3 (06:34→22:03)
[2018-04-28 08:18] LABS: BASO % 0.8 % (0-2.0); EOS % 4.9 % (0-4.5); HEMATOCRIT 33.7 % (32.4-45.2); HEMOGLOBIN 11.4 GM/dL (10.7-15.3); LYMPH % 22.7 % (8-40); MCH 30.3 pg (25.7-33.7); MCHC 33.8 g/dl (32.0-36.0); MEAN CELL VOLUME 89.7 fl (80-96); MEAN PLT VOLUME 9.7 fl (7.5-11.1); MONO % 12.8 % (3.8-10.2); NEUT % 58.8 % (42.8-82.8); PLATELET COUNT 208 K/MM3 (134-434); RBC 3.76 M/mm3 (3.60-5.2); RDW 15.2 % (11.6-15.6); WHITE BLOOD COUNT 5.5 K/mm3 (4.0-10.0)
[2018-04-28 08:43] LABS: CHLORIDE 106 mmol/L (98-107); POTASSIUM 3.9 mmol/L (3.5-5.1); SODIUM 144 mmol/L (136-145)
[2018-04-28 09:20] LABS: ALBUMIN 2.9 g/dl (3.4-5.0); ALK PHOS 98 U/L (45-117); ANION GAP 8 (8-16); BILIRUBIN,DIRECT 0.2 mg/dL (0.0-0.2); BILIRUBIN,TOTAL 0.4 mg/dL (0.2-1.0); BLOOD UREA NITROGEN 4 mg/dL (7-18); CALCIUM 8.5 mg/dL (8.5-10.1); CO2 30 mmol/L (21-32); CREATININE 0.4 mg/dL (0.55-1.02); GLUCOSE,RANDOM 85 mg/dL (74-106); MAGNESIUM 2.2 mg/dL (1.8-2.4); SGOT/AST 61 U/L (15-37); SGPT/ALT 86 U/L (12-78); TOT PROT 5.2 g/dl (6.4-8.2)
[2018-04-28] MEDS ORDERED: DEXTROSE 5%-WATER - 50 ML IVPB ONE (09:44)
[2018-04-28] MEDS ORDERED: cefTRIAXone SODIUM 1 GM VIAL ONE (09:44)
[2018-04-28] MEDS ORDERED: PT OWN MED DRAWER 7, Y5N ONE ×6 (09:44→21:06)
[2018-04-28] MEDS: CEFTRIAXONE 1 GM in DEXTROSE 5%-WATER - 50 ML IVPB SCH (09:50)
[2018-04-28] MEDS: HEPARIN NA (PORCINE) 5,000 UNITS/ML 1ML VIAL SQ SCH ×2 (09:50→22:01)
[2018-04-28] MEDS: CYANOCOBALAMIN 1,000 MCG TABLET (FP) PO SCH (09:51)
[2018-04-28] MEDS: TIOTROPIUM BROMIDE 18 MCG CAPSULES IH SCH (09:51)
[2018-04-28] MEDS: CHOLECALCIFEROL (VITAMIN D3) 1,000 UNIT TABLET (FP) PO SCH (09:51)
[2018-04-28] MEDS: MULTIVITAMINS (DAILY MVI) TABLET (FP) PO SCH (09:52)
[2018-04-28] MEDS: ASPIRIN 81 MG CHEWABLE TABLETS PO SCH (09:52)
[2018-04-28] MEDS: PANTOPRAZOLE 40 MG TABLET (FP) PO SCH (09:52)
[2018-04-28] MEDS: CYCLOBENZAPRINE HCL 10 MG TABLET (FP) PO SCH ×2 (09:52→22:00)
[2018-04-28 10:31] LABS: ERYTHROCYTE SEDIMENTATION RATE 9 mm/hr (0-30)
--- NOTE | 2018-04-28 11:09 | PN ---
Progress Note, Physician Chief Complaint: Pt lying in bed in no acute distress. Reports she is tolerating full liquids. having bm, passing flatus. Otherwise, pt denies any chest pain, sob, n/v/d. - Current Medication List Current Medications: Active Medications Aspirin (Asa -) 81 mg PO DAILY [facility] Last Admin: 04/28/18 09:52 Dose: 81 mg Budesonide/Formoterol Fumarate (Symbicort 160/4.5mcg -) 1 puff IH BID [facility] Last Admin: 04/27/18 21:11 Dose: 1 puff Cholecalciferol (Vitamin D3 -) 2,000 unit PO DAILY [facility] Last Admin: 04/28/18 09:51 Dose: 2,000 unit Cyanocobalamin (Vitamin B12 -) 1,000 mcg PO DAILY [facility] Last Admin: 04/28/18 09:51 Dose: 1,000 mcg Cyclobenzaprine HCl (Flexeril -) 5 mg PO BID [facility] Last Admin: 04/28/18 09:52 Dose: 5 mg Docusate Sodium (Colace -) 100 mg PO BID PRN PRN Reason: CONSTIPATION Last Admin: 04/27/18 09:23 Dose: 100 mg Heparin Sodium (Porcine) (Heparin -) 5,000 unit SQ BID [facility] Last Admin: 04/28/18 09:50 Dose: 5,000 unit Ceftriaxone Sodium 1 gm/ (Dextrose) 50 mls @ 100 mls/hr IVPB DAILY [facility]; Protocol Last Admin: 04/28/18 09:50 Dose: 100 mls/hr Multivitamins/Minerals/Vitamin C (Tab-A-Vit -) 1 tab PO DAILY [facility] Last Admin: 04/28/18 09:52 Dose: 1 tab Ondansetron HCl (Zofran Injection) 4 mg IVPUSH Q6H PRN PRN Reason: NAUSEA Oxycodone HCl (Roxicodone -) 5 mg PO Q3H PRN PRN Reason: PAIN LEVEL 1-5 Last Admin: 04/26/18 21:31 Dose: 5 mg Pantoprazole Sodium (Protonix -) 40 mg PO DAILY [facility] Last Admin: 04/28/18 09:52 Dose: 40 mg Polyethylene Glycol (Miralax (For Daily Use) -) 17 gm PO TID [facility] Last Admin: 04/28/18 06:34 Dose: Not Given Tiotropium [place] (Spiriva -) 1 puff IH DAILY [facility] Last Admin: 04/28/18 09:51 Dose: 1 puff - Objective Vital Signs: Vital Signs Temperature 97.8 F 04/28/18 08:55 Pulse Rate 91 H 04/28/18 08:55 Respiratory Rate 20 04/28/18 08:55 Blood Pressure 132/96 04/28/18 08:55 O2 Sat by Pulse Oximetry (%) 100 04/27/18 20:16 Constitutional: Yes: No Distress, Calm Cardiovascular: Yes: WNL, Regular Rate and Rhythm Respiratory: Yes: WNL, Regular, CTA Bilaterally. No: Accessory Muscle Use, Diminished, SOB, Tachypnea, Wheezes Gastrointestinal: Yes: Normal Bowel Sounds, Soft. No: Distention, Tenderness, Vomiting Genitourinary: Yes: WNL Edema: No Neurological: Yes: WNL, Alert, Oriented Psychiatric: Yes: WNL, Alert, Oriented Labs: CBC, BMP 04/28/18 07:15 04/28/18 07:15 INR, PTT INR 0.96 (0.82-1.09) 04/25/18 18:12 Problem List - Problems (1) Dysphagia Code(s): R13.10 - DYSPHAGIA, UNSPECIFIED (2) Ileus Code(s): K56.7 - ILEUS, UNSPECIFIED (3) Urinary tract infection Code(s): N39.0 - URINARY TRACT INFECTION, SITE NOT SPECIFIED Qualifiers: Urinary tract infection type: acute cystitis Hematuria presence: without hematuria Qualified Code(s): N30.00 - Acute cystitis without hematuria (4) Transaminitis Code(s): R74.0 - NONSPEC ELEV OF LEVELS OF TRANSAMNS & LACTIC ACID DEHYDRGNSE (5) Hypokalemia Code(s): E87.6 - HYPOKALEMIA (6) COPD (chronic obstructive pulmonary disease) Code(s): J44.9 - CHRONIC OBSTRUCTIVE PULMONARY DISEASE, UNSPECIFIED (7) DJD (degenerative joint disease) of cervical spine Code(s): M47.812 - SPONDYLOSIS W/O MYELOPATHY OR RADICULOPATHY, CERVICAL REGION (8) HLD (hyperlipidemia) Code(s): E78.5 - HYPERLIPIDEMIA, UNSPECIFIED (9) Hyperthyroidism Code(s): E05.90 - THYROTOXICOSIS, UNSP WITHOUT THYROTOXIC CRISIS OR STORM (10) HTN (hypertension) Code(s): I10 - ESSENTIAL (PRIMARY) HYPERTENSION Qualifiers: Hypertension type: essential hypertension Qualified Code(s): I10 - Essential (primary) hypertension (11) Renal mass, right Code(s): N28.89 - OTHER SPECIFIED DISORDERS OF KIDNEY AND URETER Assessment/Plan (1) Dysphagia Assessment/Plan: barium swallow study unremarkable tolerating full liquids speech eval GI following- esophogram tmrw Neuro-surgery consulted to assess cervical safety for EGD procedure Code(s): R13.10 - DYSPHAGIA, UNSPECIFIED (2) Ileus Assessment/Plan: resolved +bm,+flatus,+bs Code(s): K56.7 - ILEUS, UNSPECIFIED (3) Urinary tract infection Assessment/Plan: UA +/UC neg iv antibiotic day 3 Code(s): N39.0 - URINARY TRACT INFECTION, SITE NOT SPECIFIED Qualifiers: Urinary tract infection type: acute cystitis Hematuria presence: without hematuria Qualified Code(s): N30.00 - Acute cystitis without hematuria (4) Transaminitis Assessment/Plan: acute, slowly improving suspect drug induced levofloxacin/tylenol d/c'd hold statin hepatitis panel wnl acetaminophen level wnl GI following Code(s): R74.0 - NONSPEC ELEV OF LEVELS OF TRANSAMNS & LACTIC ACID DEHYDRGNSE (5) Hypokalemia Assessment/Plan: mild, improved KCL PO [id number] monitor bmp Code(s): E87.6 - HYPOKALEMIA (6) COPD (chronic obstructive pulmonary disease) Assessment/Plan: chronic continue symbicort/spiriva followed by outpt Code(s): J44.9 - CHRONIC OBSTRUCTIVE PULMONARY DISEASE, UNSPECIFIED (7) DJD (degenerative joint disease) of cervical spine Assessment/Plan: stable intermittent pain radiating to upper extremities flexeril bid Code(s): M47.812 - SPONDYLOSIS W/O MYELOPATHY OR RADICULOPATHY, CERVICAL REGION (8) HLD (hyperlipidemia) Assessment/Plan: stable holding statin in the setting of acute transaminitis Code(s): E78.5 - HYPERLIPIDEMIA, UNSPECIFIED (9) Hyperthyroidism Assessment/Plan: last tsh wnl followed by Endocrine outpt, Dr.Shrastha Tapazole 3x/week Code(s): E05.90 - THYROTOXICOSIS, UNSP WITHOUT THYROTOXIC CRISIS OR STORM (10) HTN (hypertension) Assessment/Plan: controlled off meds will monitor Code(s): I10 - ESSENTIAL (PRIMARY) HYPERTENSION Qualifiers: Hypertension type: essential hypertension Qualified Code(s): I10 - Essential (primary) hypertension (11) Renal mass, right Assessment/Plan: followed closely by Code(s): N28.89 - OTHER SPECIFIED DISORDERS OF KIDNEY AND URETER Assessment/Plan Dispo: Home, awaiting GI clearance. Discussed with pt and daughter Shaina regarding the plan, GI to see pt this afternoon, informed and aware.
[2018-04-28] MEDS ORDERED: POTASSIUM CHLORIDE TABS 10 MEQ TABLET.ER (FP) PO ONE (11:30)
[2018-04-28] MEDS: BUDESONIDE/FORMETEROL FUMARATE 160/4.5 mcg INHALER IH SCH ×2 (11:51→22:02)
[2018-04-28] MEDS: guaiFENesin 600 MG TABLET.ER (FP) PO SCH (13:07)
--- NOTE | 2018-04-28 16:01 | PN ---
GI Progress Note Subjective: GI NOte: Dr. Rivera's consult is appreciated. Swallowing difficulties persist. She has been losing weight. I have advised having a formal esophagram before undertaking EGD. I have discussed the risks of EGD and dilation including perforation of the esophagus/pharynx from scope pressure onto osteophytes and anywhere along the path of the endoscope and in particular should dilation of an esophageal stricture be undertaken. She has signed an informed consent. Will order neck CT to look for osteophytes. She has begun to move her bowels and denies abdominal pain. - Objective Vital Signs: Vital Signs Temperature 97.7 F 04/28/18 14:00 Pulse Rate 91 H 04/28/18 08:55 Respiratory Rate 20 04/28/18 08:55 Blood Pressure 132/96 04/28/18 08:55 O2 Sat by Pulse Oximetry (%) 95 04/28/18 09:00 Laboratory Tests 04/25/18 04/27/18 04/28/18 21:26 07:19 07:15 Total Bilirubin 0.4 AST 19 73 H 61 H ALT 19 87 H 86 H Alkaline Phosphatase 67 98 Constitutional: No Distress, Other (right torticollis) Cardiovascular: Yes: Regular Rate and Rhythm Respiratory: Yes: CTA Bilaterally ...Auscultate: Yes: Normoactive Bowel Sounds ...Palpate: Yes: Soft, Other (nontender) Labs: CBC, BMP 04/28/18 07:15 04/28/18 07:15 INR, PTT INR 0.96 (0.82-1.09) 04/25/18 18:12 Assessment/Plan Dypshagia leading to weight loss. I discussed the case with Dr Seymoru Rojas who Lisa Scott NP consulted at my request. He advises a neck MRI rather than CT to assess for spinal stenosis as the cause of torticollis and to determine the safety of EGD and dilation. Will order the esophagram and neck MRI. Earlier abdominal pain appears to have been related to a fecal impaction. Will give Miralax lavage. She has had colon cancer screening with Dr Arreguin.
--- NOTE | 2018-04-28 18:48 | PN ---
Progress Note (short form) - Note Progress Note: NEUROSURGERY Chart reviewed Pt examined History obtained Friend at bedside c/o few weeks now has had difficulty swallowing, but developed sharp pain in lower abdomen. Fund to have UTI. No fever or chill. H/o breast CA. c/o neck pain x 1 year. Neck tilted to L. No arm weakness, numbness. No Lhermitte's. PE: AF, VSS General- unremarkable C spine flexion- 30 degrees., extension 20 degrees, lateral rotation 40 degrees each direction CN- intact; Motor- 5/5 b UE/LE; Sensation- intact LT; DTR- 1+ UE, 2+ LE B CT C spine 2014- DDD, spondylosis, mild R sided torticolis, no canal compromise. (report only; images archived already) Dr Main concerned with neck posture and safety of EGD C spine x-rays ordered per medical team Would need MRI to assess spinal canal if that is the concern during EGD D/w Dr Main
[2018-04-29] MEDS: POLYETHYLENE GLYCOL 3350 119 GM BTL PO SCH ×3 (05:47→21:27)
[2018-04-29] MEDS ORDERED: METHIMAZOLE 5 MG TABLET (FP) PO SCH (07:10)
[2018-04-29 08:18] LABS: BASO % 0.9 % (0-2.0); HEMOGLOBIN 12.8 GM/dL (10.7-15.3); LYMPH % 23.3 % (8-40); MCH 30.1 pg (25.7-33.7); MCHC 33.7 g/dl (32.0-36.0); MEAN CELL VOLUME 89.3 fl (80-96); MEAN PLT VOLUME 9.6 fl (7.5-11.1); MONO % 9.2 % (3.8-10.2); NEUT % 62.6 % (42.8-82.8); PLATELET COUNT 246 K/MM3 (134-434); RBC 4.26 M/mm3 (3.60-5.2); RDW 15.5 % (11.6-15.6); WHITE BLOOD COUNT 5.2 K/mm3 (4.0-10.0)
[2018-04-29 08:48] LABS: CALCIUM 8.3 mg/dL (8.5-10.1); CHLORIDE 106 mmol/L (98-107); POTASSIUM 4.3 mmol/L (3.5-5.1); SODIUM 143 mmol/L (136-145)
[2018-04-29 08:49] LABS: ALBUMIN 3.1 g/dl (3.4-5.0)
[2018-04-29 08:51] LABS: BILIRUBIN,DIRECT 0.2 mg/dL (0.0-0.2); BILIRUBIN,TOTAL 0.4 mg/dL (0.2-1.0); TOT PROT 5.6 g/dl (6.4-8.2)
[2018-04-29 08:52] LABS: ANION GAP 4 (8-16); BLOOD UREA NITROGEN 7 mg/dL (7-18); CO2 33 mmol/L (21-32); CREATININE 0.4 mg/dL (0.55-1.02); GLUCOSE,RANDOM 87 mg/dL (74-106); MAGNESIUM 2.3 mg/dL (1.8-2.4)
--- NOTE | 2018-04-29 10:37 | PN ---
Progress Note, Physician Chief Complaint: Pt lying in bed in no acute distress. npo for esophogram this am. Otherwise, pt denies any chest pain, sob, n/v/d. - Current Medication List Current Medications: Active Medications Aspirin (Asa -) 81 mg PO DAILY [facility] Last Admin: 04/28/18 09:52 Dose: 81 mg Budesonide/Formoterol Fumarate (Symbicort 160/4.5mcg -) 1 puff IH BID [facility] Last Admin: 04/28/18 22:02 Dose: 1 puff Cholecalciferol (Vitamin D3 -) 2,000 unit PO DAILY [facility] Last Admin: 04/28/18 09:51 Dose: 2,000 unit Cyanocobalamin (Vitamin B12 -) 1,000 mcg PO DAILY [facility] Last Admin: 04/28/18 09:51 Dose: 1,000 mcg Cyclobenzaprine HCl (Flexeril -) 5 mg PO BID [facility] Last Admin: 04/28/18 22:00 Dose: 5 mg Guaifenesin (Mucinex -) 1,200 mg PO DAILY [facility] Last Admin: 04/28/18 13:07 Dose: 1,200 mg Heparin Sodium (Porcine) (Heparin -) 5,000 unit SQ BID [facility] Last Admin: 04/28/18 22:01 Dose: 5,000 unit Ceftriaxone Sodium 1 gm/ (Dextrose) 50 mls @ 100 mls/hr IVPB DAILY [facility]; Protocol Last Admin: 04/28/18 09:50 Dose: 100 mls/hr Methimazole (Tapazole -) 5 mg PO TUWEFR@0710 [facility] Multivitamins/Minerals/Vitamin C (Tab-A-Vit -) 1 tab PO DAILY [facility] Last Admin: 04/28/18 09:52 Dose: 1 tab Ondansetron HCl (Zofran Injection) 4 mg IVPUSH Q6H PRN PRN Reason: NAUSEA Pantoprazole Sodium (Protonix -) 40 mg PO DAILY [facility] Last Admin: 04/28/18 09:52 Dose: 40 mg Polyethylene Glycol (Miralax (For Daily Use) -) 17 gm PO TID [facility] Last Admin: 04/29/18 05:47 Dose: Not Given Tiotropium [place] (Spiriva -) 1 puff IH DAILY [facility] Last Admin: 04/28/18 09:51 Dose: 1 puff - Objective Vital Signs: Vital Signs Temperature 97.1 F L 04/29/18 08:29 Pulse Rate 81 04/29/18 08:29 Respiratory Rate 20 04/29/18 08:29 Blood Pressure 135/73 04/29/18 08:29 O2 Sat by Pulse Oximetry (%) 96 04/28/18 21:00 Constitutional: Yes: No Distress, Calm Cardiovascular: Yes: WNL, Regular Rate and Rhythm. No: Gallop, Murmur Respiratory: Yes: WNL, Regular, CTA Bilaterally, Diminished. No: Accessory Muscle Use, Rhonchi, SOB, Tachypnea, Wheezes Gastrointestinal: Yes: WNL, Normal Bowel Sounds, Soft. No: Distention, Tenderness Genitourinary: Yes: WNL Edema: No Integumentary: Yes: WNL Neurological: Yes: WNL, Alert, Oriented Psychiatric: Yes: WNL, Alert, Oriented Labs: CBC, BMP 04/29/18 07:20 04/29/18 07:20 INR, PTT INR 0.96 (0.82-1.09) 04/25/18 18:12 Problem List - Problems (1) Dysphagia Code(s): R13.10 - DYSPHAGIA, UNSPECIFIED (2) Ileus Code(s): K56.7 - ILEUS, UNSPECIFIED (3) Urinary tract infection Code(s): N39.0 - URINARY TRACT INFECTION, SITE NOT SPECIFIED Qualifiers: Urinary tract infection type: acute cystitis Hematuria presence: without hematuria Qualified Code(s): N30.00 - Acute cystitis without hematuria (4) Transaminitis Code(s): R74.0 - NONSPEC ELEV OF LEVELS OF TRANSAMNS & LACTIC ACID DEHYDRGNSE (5) Hypokalemia Code(s): E87.6 - HYPOKALEMIA (6) COPD (chronic obstructive pulmonary disease) Code(s): J44.9 - CHRONIC OBSTRUCTIVE PULMONARY DISEASE, UNSPECIFIED (7) DJD (degenerative joint disease) of cervical spine Code(s): M47.812 - SPONDYLOSIS W/O MYELOPATHY OR RADICULOPATHY, CERVICAL REGION (8) HLD (hyperlipidemia) Code(s): E78.5 - HYPERLIPIDEMIA, UNSPECIFIED (9) Hyperthyroidism Code(s): E05.90 - THYROTOXICOSIS, UNSP WITHOUT THYROTOXIC CRISIS OR STORM (10) HTN (hypertension) Code(s): I10 - ESSENTIAL (PRIMARY) HYPERTENSION Qualifiers: Hypertension type: essential hypertension Qualified Code(s): I10 - Essential (primary) hypertension (11) Renal mass, right Code(s): N28.89 - OTHER SPECIFIED DISORDERS OF KIDNEY AND URETER Assessment/Plan (1) Dysphagia Assessment/Plan: barium swallow study unremarkable tolerating full liquids GI following- esophogram today without significant findings EGD low benefit, high risk in this pt- risk of pharyngeal/esophageal perforation CT neck pending- r/o osteophytes Neuro-surgery following, pt could not tolerate MRI-closed, recommendations for torticollis appreciated ENT consulted per GI recs Code(s): R13.10 - DYSPHAGIA, UNSPECIFIED (2) Ileus Assessment/Plan: resolved +bm,+flatus,+bs Code(s): K56.7 - ILEUS, UNSPECIFIED (3) Urinary tract infection Assessment/Plan: UA +/UC neg iv antibiotic day 4 Code(s): N39.0 - URINARY TRACT INFECTION, SITE NOT SPECIFIED Qualifiers: Urinary tract infection type: acute cystitis Hematuria presence: without hematuria Qualified Code(s): N30.00 - Acute cystitis without hematuria (4) Transaminitis Assessment/Plan: improved suspect drug induced- levofloxacin d/c'd will restart statin today GI following Code(s): R74.0 - NONSPEC ELEV OF LEVELS OF TRANSAMNS & LACTIC ACID DEHYDRGNSE (5) Hypokalemia Assessment/Plan: resolved Code(s): E87.6 - HYPOKALEMIA (6) COPD (chronic obstructive pulmonary disease) Assessment/Plan: chronic continue symbicort/spiriva O2 via [place] prn followed by outpt Code(s): J44.9 - CHRONIC OBSTRUCTIVE PULMONARY DISEASE, UNSPECIFIED (7) DJD (degenerative joint disease) of cervical spine Assessment/Plan: stable intermittent pain radiating to upper extremities flexeril bid Code(s): M47.812 - SPONDYLOSIS W/O MYELOPATHY OR RADICULOPATHY, CERVICAL REGION (8) HLD (hyperlipidemia) Assessment/Plan: stable restart statin Code(s): E78.5 - HYPERLIPIDEMIA, UNSPECIFIED (9) Hyperthyroidism Assessment/Plan: last tsh wnl followed by Endocrine outpt, Dr.Shrastha Tapazole 3x/week Code(s): E05.90 - THYROTOXICOSIS, UNSP WITHOUT THYROTOXIC CRISIS OR STORM (10) HTN (hypertension) Assessment/Plan: controlled off meds will monitor Code(s): I10 - ESSENTIAL (PRIMARY) HYPERTENSION Qualifiers: Hypertension type: essential hypertension Qualified Code(s): I10 - Essential (primary) hypertension (11) Renal mass, right Assessment/Plan: followed closely by Code(s): N28.89 - OTHER SPECIFIED DISORDERS OF KIDNEY AND URETER Assessment/Plan Dispo: Home. Completed esophogram today,unremarkable. Case discussed with GI , EGD high risk and low benefit for this pt per GI. Feels as the dysphagia/pt complaints are more upper laryngeal/pharyneal. ENT consulted to assess any upper laryngeal dysmotility. Neuro-surgery was consulted yesterday to assess the safety of EGD in this pt. MRI was ordered, pt could not tolerate closed MRI , willing to do open MRI-this can be done outpt. Discussed with regarding any further recommendations and outpt work up of pt's torticollis. No further intervention needed at this point per . If worsening pain or discomfort, can refer to outpt pain management. CT pending, r/o osteophytes Awaiting ENT consult
[2018-04-29] MEDS ORDERED: DEXTROSE 5%-WATER - 50 ML IVPB ONE (11:01)
[2018-04-29] MEDS ORDERED: cefTRIAXone SODIUM 1 GM VIAL ONE (11:01)
[2018-04-29] MEDS: BUDESONIDE/FORMETEROL FUMARATE 160/4.5 mcg INHALER IH SCH ×2 (12:00→21:26)
[2018-04-29] MEDS: CEFTRIAXONE 1 GM in DEXTROSE 5%-WATER - 50 ML IVPB SCH (12:00)
[2018-04-29] MEDS: TIOTROPIUM BROMIDE 18 MCG CAPSULES IH SCH (12:00)
[2018-04-29] MEDS: ASPIRIN 81 MG CHEWABLE TABLETS PO SCH (12:01)
[2018-04-29] MEDS: HEPARIN NA (PORCINE) 5,000 UNITS/ML 1ML VIAL SQ SCH ×2 (12:01→21:26)
[2018-04-29] MEDS: PANTOPRAZOLE 40 MG TABLET (FP) PO SCH (12:01)
[2018-04-29] MEDS: CYCLOBENZAPRINE HCL 10 MG TABLET (FP) PO SCH ×2 (12:01→21:25)
[2018-04-29] MEDS: CHOLECALCIFEROL (VITAMIN D3) 1,000 UNIT TABLET (FP) PO SCH (12:01)
[2018-04-29] MEDS: MULTIVITAMINS (DAILY MVI) TABLET (FP) PO SCH (12:01)
[2018-04-29] MEDS: guaiFENesin 600 MG TABLET.ER (FP) PO SCH (12:01)
[2018-04-29] MEDS: CYANOCOBALAMIN 1,000 MCG TABLET (FP) PO SCH (12:02)
--- NOTE | 2018-04-29 16:09 | PN ---
Progress Note (short form) - Note Progress Note: NEUROSURGERY Mild neck pain. Neck tilted to L. No arm weakness, numbness. No Lhermitte's. Unable to tolerate closed MRI PE: AF, VSS General- unremarkable C spine flexion- 30 degrees., extension 20 degrees, lateral rotation 40 degrees each direction CN- intact; Motor- 5/5 B UE/LE; Sensation- intact LT; DTR- 1+ UE, 2+ LE B Swallowing study - negative for obstruction As pt has minimal C spine symptoms or deficits and EGD is reportedly not moving forward, could hold off MRI D/w Ms Scott, PATIENT FINANCIAL SERVICES SPECIALIST
--- NOTE | 2018-04-29 18:31 | PN ---
GI Progress Note Subjective: GI NOte: Esophagram fails to reveal any mid or distal esophageal obstructions that would benefit from EGD intervention. Patient could not tolerate MRI to allow Dr Rojas to assess the safety of EGD passage. I had discussed his with Lisa Scott earlier and advised an ENT evaluation of the pharynx for an etiology of this dysphagia. Will order neck CT to look for osteophytes. - Objective Vital Signs: Vital Signs Temperature 97.1 F L 04/29/18 08:29 Pulse Rate 81 04/29/18 08:29 Respiratory Rate 20 04/29/18 08:29 Blood Pressure 135/73 04/29/18 08:29 O2 Sat by Pulse Oximetry (%) 95 04/29/18 09:00 Constitutional: Calm ...Auscultate: Yes: Normoactive Bowel Sounds ...Palpate: Yes: Soft, Other (nontender) Labs: CBC, BMP 04/29/18 07:20 04/29/18 07:20 INR, PTT INR 0.96 (0.82-1.09) 04/25/18 18:12 Assessment/Plan Dypshagia leading to weight loss. Dr Seymour Rojas's consult is appreciated. MRI not feasible. Will order CT to assess for osteophytes.
[2018-04-29] MEDS ORDERED: PT OWN MED DRAWER 7, Y5N ONE (20:46)
[2018-04-29] MEDS ORDERED: ATORVASTATIN CA 20 MG TABLET (FP) PO SCH (22:00)
[2018-04-30] MEDS: POLYETHYLENE GLYCOL 3350 119 GM BTL PO SCH ×2 (05:43→13:26)
[2018-04-30] MEDS ORDERED: PT OWN MED DRAWER 7, Y5N ONE ×2 (06:55→10:22)
[2018-04-30 06:58] LABS: EOS % 4.7 % (0-4.5); HEMATOCRIT 36.8 % (32.4-45.2); HEMOGLOBIN 12.5 GM/dL (10.7-15.3); MCH 30.6 pg (25.7-33.7); MCHC 34.1 g/dl (32.0-36.0); MEAN CELL VOLUME 89.7 fl (80-96); MEAN PLT VOLUME 9.7 fl (7.5-11.1); MONO % 9.9 % (3.8-10.2); NEUT % 57.4 % (42.8-82.8); PLATELET COUNT 252 K/MM3 (134-434); RDW 15.6 % (11.6-15.6); WHITE BLOOD COUNT 5.5 K/mm3 (4.0-10.0)
--- NOTE | 2018-04-30 08:12 | PN ---
Progress Note (short form) - Note Progress Note: NEUROSURGERY Unable to tolerate closed MRI PE: AF, VSS General- unremarkable C spine flexion- 30 degrees., extension 20 degrees, lateral rotation 40 degrees each direction CN- intact; Motor- 5/5 B UE/LE; Sensation- intact LT; DTR- 1+ UE, 2+ LE B Swallowing study - negative for obstruction As pt has minimal C spine symptoms or deficits and EGD is reportedly not moving forward, could hold off MRI CT pending ENT input pending D/w Ms Scott, GROUND [employer]
[2018-04-30 08:34] LABS: CHLORIDE 103 mmol/L (98-107); POTASSIUM 4.1 mmol/L (3.5-5.1); SODIUM 143 mmol/L (136-145)
[2018-04-30 08:48] LABS: ALBUMIN 3.2 g/dl (3.4-5.0); ALK PHOS 102 U/L (45-117); ANION GAP 7 (8-16); BILIRUBIN,TOTAL 0.3 mg/dL (0.2-1.0); BLOOD UREA NITROGEN 13 mg/dL (7-18); CALCIUM 8.7 mg/dL (8.5-10.1); CO2 33 mmol/L (21-32); CREATININE 0.5 mg/dL (0.55-1.02); GLUCOSE,RANDOM 83 mg/dL (74-106); SGOT/AST 76 U/L (15-37); SGPT/ALT 90 U/L (12-78); TOT PROT 5.7 g/dl (6.4-8.2)
[2018-04-30] MEDS ORDERED: cefTRIAXone SODIUM 1 GM VIAL ONE (10:22)
[2018-04-30] MEDS ORDERED: DEXTROSE 5%-WATER - 50 ML IVPB ONE (10:22)
[2018-04-30] MEDS: MULTIVITAMINS (DAILY MVI) TABLET (FP) PO SCH (10:26)
[2018-04-30] MEDS: ASPIRIN 81 MG CHEWABLE TABLETS PO SCH (10:26)
[2018-04-30] MEDS: TIOTROPIUM BROMIDE 18 MCG CAPSULES IH SCH (10:26)
[2018-04-30] MEDS: CYANOCOBALAMIN 1,000 MCG TABLET (FP) PO SCH (10:26)
[2018-04-30] MEDS: HEPARIN NA (PORCINE) 5,000 UNITS/ML 1ML VIAL SQ SCH (10:27)
[2018-04-30] MEDS: CEFTRIAXONE 1 GM in DEXTROSE 5%-WATER - 50 ML IVPB SCH (10:27)
[2018-04-30] MEDS: CYCLOBENZAPRINE HCL 10 MG TABLET (FP) PO SCH (10:28)
[2018-04-30] MEDS: CHOLECALCIFEROL (VITAMIN D3) 1,000 UNIT TABLET (FP) PO SCH (10:29)
[2018-04-30] MEDS: guaiFENesin 600 MG TABLET.ER (FP) PO SCH (10:29)
[2018-04-30] MEDS: PANTOPRAZOLE 40 MG TABLET (FP) PO SCH (10:29)
[2018-04-30] MEDS: BUDESONIDE/FORMETEROL FUMARATE 160/4.5 mcg INHALER IH SCH (10:30)
--- NOTE | 2018-04-30 11:48 | DS ---
Physical Examination Vital Signs: Vital Signs Temperature 98.3 F 04/30/18 10:00 Pulse Rate 96 H 04/30/18 10:00 Respiratory Rate 20 04/30/18 10:00 Blood Pressure 153/98 04/30/18 10:00 O2 Sat by Pulse Oximetry (%) 96 04/30/18 09:00 Constitutional: Yes: No Distress Cardiovascular: Yes: Regular Rate and Rhythm. No: Gallop, Murmur Respiratory: Yes: WNL, Regular, CTA Bilaterally. No: Accessory Muscle Use, Tachypnea, Wheezes Gastrointestinal: Yes: WNL, Normal Bowel Sounds, Soft. No: Distention, Tenderness Renal/: Yes: WNL Extremities: Yes: WNL Edema: No Neurological: Yes: WNL, Alert, Oriented Psychiatric: Yes: WNL, Alert, Oriented Labs: CBC, BMP 04/30/18 06:30 04/30/18 06:30 Discharge Summary Reason For Visit: COLITIS UTI Current Active Problems Urinary tract infection (Acute) Dysphagia (Acute) Transaminitis (Acute) Hyperthyroidism (Chronic) HTN (hypertension) (Chronic) Renal mass, right (Chronic) Hospital Course: is an 88 year old female who was admitted with abd pain, ileus, dysphagia/weightloss/loss of appetite. Pt found to have uti, urine culture neg, completed 5 days of ceftriaxone. Abd CT showed ileus which resolved but did not show any colitis or inflammatory changes. She has bowel function now, having bms. GI consult appreciated. Esophogram/MBS unremarkable. Per GI, EGD low benefit and high risk on this pt with torticollis/spinal stenosis. Neurosurgery was consulted to assess the safety of EGD, mri ordered, pt could not tolerate closed mri, CT done to r/o osteophytes as cause of dysphagia CT-neck shows osteophytes. Pt evaluated by ENT who feels dysphagia is esophogeal. flexible laryngoscopy WNL. Discussed with GI , who states EGD remains high risk, recommends soft diet. Diet was advanced from fulls to soft diet. Pt tolerating soft diet without difficulty. She denies any dysphagia this am. advise ensure supplements. Acute transaminitis after receiving 1 dose of levofloxacin. med d/c'd, lfts improved. statin restarted yesterday and lfts trended up, will hold statin at the moment until lfts normalize. Advise outpt follow up as directed. PT/analgesics and neuro follow up can be beneficial for osteophytes related symptoms. Condition: Fair - Instructions Diet, Activity, Other Instructions: soft diet, ensure, advance as tolerated resume prev activity hold lipitor until F/U w/ f/u as directed to continue the outpt work up Referrals: Fredo Oleary MD [Primary Care Provider] - 1 Week Yusuf Main MD [Staff Physician] - 2 Weeks (GI- as directed by pcp) Neo Dixon MD [Staff Physician] - 2 Weeks Davidson Ahuja MD [Staff Physician] - 1 Week (ENT) Disposition: HOME - Home Medications Comprehensive Discharge Medication List: Ambulatory Orders Aspirin [ASA -] 81 mg PO DAILY 08/09/13 Multivitamins [Multivit ([facility] Formulary)] 1 tab PO DAILY 09/05/14 Cholecalciferol (Vitamin D3) [Vitamin D] 2,000 unit PO DAILY 11/03/15 Fiber [Fiber Choice] 1 each PO DAILY 11/03/15 Budesonide/Formeterol Fumarate [SYMBICORT 160/4.5mcg -] 1 inh IH PRN PRN Tiotropium [place] [Spiriva] 1 inh IH DAILY 06/19/17 Vitamin E 0 unit PO ASDIR 06/19/17 Cyanocobalamin [Vitamin B12 -] 1,000 mcg PO DAILY tablet 06/21/17 Tapazole 5 mg PO UTDICT 04/28/18 Cyclobenzaprine HCl [Flexeril -] 5 mg PO BID tablet 04/30/18 Methimazole [Tapazole -] 5 mg PO TUWEFR@0710 tablet 04/30/18 Polyethylene Glycol 3350 [Miralax 119 gm Btl -] 17 gm PO TID #0 bottle 04/30/18
--- NOTE | 2018-04-30 13:17 | CON.ENT ---
Consult Consult Specialty:: ENT Referred by:: Tyler Reason for Consultation:: trouble swallowing - History of Present Illness Chief Complaint: trouble swallowing History of Present Illness: 88 yo F with trouble swallowing x many months, progressive,usually solids, feels gets stuck lower neck vs upper chest no pain, no voice change, no prior swallowing problems, has lost 14-15 lbs/6 months involuntarily intermittent problems sohan liquids admitted with abdominal pain GI consultation noted, EGD considered, imaging ordered to evaluate suitability for EGD pt could not tolerate MRI yesterday, CT scan today reviewed (report pending, images show anterior osteophytes from vertebral bodies at level of upper esophagus ) Historian: pt + daughter Jacque Brown tel [phone] - History Source History Provided By: Patient, Family Member, Medical Record Limitations to Obtaining History: No Limitations - Past Medical History Pulmonary: Yes: COPD ...: No Musculoskeletal: Yes: Osteoarthritis Endocrine: Yes: Hyperthyroidism - Past Surgical History Past Surgical History: Yes: Cholecystectomy, Hysterectomy - Alcohol/Substance Use Hx Alcohol Use: No History of Substance Use: reports: None - Smoking History Smoking history: Former smoker Have you smoked in the past 12 months: No If you are a former smoker, when did you quit?: 2009 - Social History ADL: Independent History of Recent Travel: No Home Medications - Allergies Allergies/Adverse Reactions: Allergies Allergy/AdvReac Type Severity Reaction Status Date / Time Sulfa (Sulfonamide Allergy "feels Verified 04/25/18 17:02 Antibiotics) like bugs are crawling in my skin" - Home Medications Home Medications: Ambulatory Orders Aspirin [ASA -] 81 mg PO DAILY 08/09/13 Multivitamins [Multivit ([facility] Formulary)] 1 tab PO DAILY 09/05/14 Cholecalciferol (Vitamin D3) [Vitamin D] 2,000 unit PO DAILY 11/03/15 Fiber [Fiber Choice] 1 each PO DAILY 11/03/15 Budesonide/Formeterol Fumarate [SYMBICORT 160/4.5mcg -] 1 inh IH PRN PRN Tiotropium [place] [Spiriva] 1 inh IH DAILY 06/19/17 Vitamin E 0 unit PO ASDIR 06/19/17 Cyanocobalamin [Vitamin B12 -] 1,000 mcg PO DAILY tablet 06/21/17 Tapazole 5 mg PO UTDICT 04/28/18 Cyclobenzaprine HCl [Flexeril -] 5 mg PO BID tablet 04/30/18 Methimazole [Tapazole -] 5 mg PO TUWEFR@0710 tablet 04/30/18 Polyethylene Glycol 3350 [Miralax 119 gm Btl -] 17 gm PO TID #0 bottle 04/30/18 Family Disease History - Family Disease History Family Disease History: CA: Mother (ovarian), Other: Father (pneumonia), Son ( CVA) Physical Exam-ENT Vital Signs: Vital Signs Temperature 98.3 F 04/30/18 10:00 Pulse Rate 96 H 04/30/18 10:00 Respiratory Rate 20 04/30/18 10:00 Blood Pressure 153/98 04/30/18 10:00 O2 Sat by Pulse Oximetry (%) 96 04/30/18 09:00 Constitutional: Yes: No Distress, Calm Head: Yes: WNL Face: Yes: WNL Eyes: Yes: WNL Nose: Yes: Septum Deviated (to right) Nasal Passage: Yes: WNL Oral/Pharynx: Yes: WNL, Other (flexible laryngoscopy: normal nasopharynx, base of tongue and hypopharynx, larynx anatomy normal, no lesions vocal cords mobile and symmetric, ++thick secretions right endolarynx AE fold to false cord, clears ,) Outer Ear: Yes: WNL Ear Canal: Yes: Cerumen (impaction right removed with forceps) Tympanic Membrane: Yes: WNL Neck: Yes: WNL Respiratory: Yes: WNL Imaging - Results X-ray: Report Reviewed (esophogram no obstruction or achalasia) Cat Scan: Image Reviewed (report pending ++anterior osteophytes at level of upper esophagus) Problem List - Problems (1) Cerumen impaction Assessment/Plan: incidental IC right ear canal removed with forceps, TM WNL Code(s): H61.20 - IMPACTED CERUMEN, UNSPECIFIED EAR Qualifiers: Laterality: right Qualified Code(s): H61.21 - Impacted cerumen, right ear (2) Dysphagia Assessment/Plan: chronic dysphagia, primarily solids involuntary weight loss flexible laryngoscopy WNL except for thick secretions ?incomplete clearing, ? reduced laryngeal sensation NO lesions, NO paralysis or paresis of vocal folds Suspect level of dysphagis is esophageal given visible osteophytes on CT Recommend: dysphagia diet concur with EGD Dr. Main to determine pt suitability based on imaging studies (MRI not tolerated but CT scan done) outpt follow-up Thank you for consultation Davidson Ahuja MD FACS Code(s): R13.10 - DYSPHAGIA, UNSPECIFIED Qualifiers: Dysphagia type: pharyngoesophageal phase Qualified Code(s): R13.14 - Dysphagia, pharyngoesophageal phase
[2018-04-30 16:59] VITALS: BP 142/78; PULSE 88; TEMP 98.9
== END 2018-04-30 19:27 | disposition home or self-care (01) | DRG 389 ==
LOC: JER 16:57 → JERBED 04-26 01:23 → OBSVTOIN 04-26 01:23 → JERBED 04-26 01:27 → UNDOADMOB 04-26 01:27 → J6S 04-26 15:57 → JERBED 04-26 15:57
PROVIDERS: ADMIT Specialist; ATTEND Specialist
DX: K56.7 Ileus, unspecified (principal); N39.0 Urinary tract infection, site not specified; J44.9 Chronic obstructive pulmonary disease, unspecified; R74.0 Nonspecific elevation of levels of transaminase and lactic acid dehydrogenase [LDH]; N28.9 Disorder of kidney and ureter, unspecified; E05.90 Thyrotoxicosis, unspecified without thyrotoxic crisis or storm; E78.5 Hyperlipidemia, unspecified; E87.6 Hypokalemia; M47.812 Spondylosis without myelopathy or radiculopathy, cervical region; R13.14 Dysphagia, pharyngoesophageal phase; M25.78 Osteophyte, vertebrae; I10 Essential (primary) hypertension
CPT/HCPCS: 36415; 70490-TC; 74177-TC; 74220-TC-FY; 74240-TC-FY; 80048; 80053; 80074; 80076; 80307; 81003; 81015; 83735; 85025; 85610; 85651; 87086; 93005; 93010; 97116-GP; 97161-GP; 99285-25; J0131; J1644; J7030

== ENCOUNTER 2018-06-02 06:56 | Day surgery (SDC) | payer OTHER ==
[2018-06-01 14:12] VITALS: BMI 19.2
[2018-06-02] MEDS ORDERED: LIDOCAINE VISCOUS 2% ORAL/TOP 20 ML UNIT-DOSE CUP ONE (07:59)
[2018-06-02] MEDS ORDERED: PROPOFOL 20 ML ONE ×3 (08:04)
[2018-06-02] MEDS ORDERED: SUCCINYLCHOLINE CHLORIDE 200 MG/10 ML VIAL ONE (08:04)
[2018-06-02] MEDS ORDERED: MIDAZOLAM HCL 2 MG/2 ML SINGLE DOSE VIAL ONE (08:04)
[2018-06-02 08:35] VITALS: TEMP 97.8
[2018-06-02 15:09] VITALS: BP 135/60; PULSE 81
--- NOTE | 2018-06-03 17:37 | PATH ---
Surgical Pathology Report Patient Name: CHRISTINA THEODORE [facility]. Rec. #: [id number] /Age/Gender: 1930 (Age: 88) / F Account: [id number] Location: ASU-ENDOSCOPY Taken: 06/02/2018 Received: 06/02/2018 Reported: 06/03/2018 Physicians: Marcelino Stein M.D. Specimen(s) Received BX PROXIMAL BODY STOMACH Clinical History Dysphagia, weight loss Postoperative diagnosis: Thick into gastric wall with narrowing of lumen, rule out linitis plastica Final Diagnosis STOMACH, PROXIMAL BODY, BIOPSY: INVASIVE ADENOCARCINOMA, POORLY DIFFERENTIATED, WITH SIGNET RING CELL FEATURES. IMMUNOHISTOCHEMICAL STAIN FOR H. PYLORI IS NEGATIVE. Comment: Sheets of malignant epithelial cells with eccentric nuclei and increased nucleus to cytoplasmic ratio in a background of acute inflammation and ulceration. Immunohistochemical stains performed and interpreted at [facility] show the tumor cells are positive for cytokeratin AE1/3 and E-Cadherin. Her2 studies pending and will be reported as an addendum. Office of Dr. Stein informed that significant findings will be faxed ([employer]). Electronically Signed Bella Henry M.D. Addendum Reported: 06/05/2018 Addendum Diagnosis Results of Her2 (IHC) performed and interpreted at [place], [place] ([id number]) on block "1" are as follows: Her2 IHC (EP3 from [employer], formerly known as [id number], using [employer] Refine detection kit): 0 (Negative). Bella Henry M.D. Gross Description Received in formalin, labeled "biopsy proximal body stomach" are 9 weir, irregular portions of soft tissue ranging from 0.1-0.6 cm. in greatest dimension. The specimens are submitted in toto in one cassette. 06/02/201806/02/2018
== END 2018-06-02 09:30 | disposition home or self-care (01) ==
LOC: JASU-ENDO 06:56
PROVIDERS: ATTEND Internal Medicine Gastroenterology
PROC: 0DB68ZX Excision of Stomach, Via Natural or Artificial Opening Endoscopic, Diagnostic (ICD-10-PCS; principal; 2018-06-02 08:00)
DX: R63.4 Abnormal weight loss (principal)
CPT/HCPCS: 88305-TC; 88341-TC; 88342-TC

== ENCOUNTER 2018-06-27 16:02 | Inpatient (IN) | payer OTHER ==
[2018-06-27] MEDS ORDERED: SODIUM CHLORIDE 500 ML IV STA (16:59)
[2018-06-27] MEDS ORDERED: ONDANSETRON 4 MG/2 ML VIAL IVPUSH ONE (16:59)
[2018-06-27] MEDS ORDERED: morphine CARPU-JECT 2 MG/1 ML DISP.SYRIN IVPUSH ONE ×2 (17:01→20:12)
--- NOTE | 2018-06-27 17:29 | PDOC ---
History of Present Illness - General Chief Complaint: Pain Stated Complaint: ABDOMINAL PAIN Time Seen by Provider: 06/27/18 16:59 History Source: Patient, Family Exam Limitations: No Limitations - History of Present Illness Initial Comments: 06/27/18 17:23 Patient is an 88F with medical history of recently diagnosed "stomach cancer", COPD, hypothyroidism here today complaining of abdominal pain for the past 24 hours. Patient endorses nausea and one episode of vomiting yesterday. Denies fevers, chills. Endorses dysuria, last bowel movement yesterday. Patient states that she has been having increasing difficulty with bowel movements. Patient and family is unsure of where the "stomach cancer" is specifically at this point , but has just completed PET scan and is attempting to have a surgeon evaluate for an operation. Patient endorses losing weight over the past 9 months to year unintentionally. Family states that she really hasn't eaten anything for 24 hours. Past History - Past Medical History Allergies/Adverse Reactions: Allergies Allergy/AdvReac Type Severity Reaction Status Date / Time Sulfa (Sulfonamide Allergy "feels Verified 06/27/18 16:10 Antibiotics) like bugs are crawling in my skin" Home Medications: Ambulatory Orders Aspirin 81 mg PO DAILY 06/01/18 Atorvastatin Ca [Lipitor] 20 mg PO HS 06/01/18 Budesonide/Formeterol Fumarate [SYMBICORT 160/4.5mcg -] 1 inh PO DAILY 06/01/18 Cholecalciferol (Vitamin D3) [Vitamin D3] 2,000 unit PO DAILY 06/01/18 Methimazole [Tapazole -] 5 mg PO ASDIR 06/01/18 Multivitamin [Multiple Vitamins] 1 each PO DAILY 06/01/18 Tiotropium [place] [Spiriva] 1 inh IH DAILY 06/01/18 Polyethylene Glycol 3350 [Miralax 119 gm Btl -] 17 gm PO ASDIR 06/02/18 Cyclobenzaprine HCl 0 mg PO HS 06/27/18 Pantoprazole Sodium [Protonix] 40 mg PO DAILY 06/27/18 oxyCODONE SR [Oxycontin] 0 mg PO BID 06/27/18 traMADol HCL [Ultram] 50 mg PO Q8H PRN 06/27/18 Anemia: No Asthma: No Cancer: Yes (LEFT BREAST, tumor in abdomen) Cardiac Disorders: Yes (ENLARGED HEART,AORTIC VALVE DISEASE??) CVA: No COPD: Yes (EMPHYSEMA) CHF: No Dementia: No Diabetes: No GI Disorders: No Disorders: No HTN: Yes Hypercholesterolemia: Yes Liver Disease: No Seizures: No Thyroid Disease: Yes (hyper) - Surgical History Abdominal Surgery: No Appendectomy: Yes Cardiac Surgery: No Cholecystectomy: Yes Lung Surgery: (L BREAST LUMPECTOMY) Neurologic Surgery: No Orthopedic Surgery: Yes (R WRIST ORIF) - Immunization History Immunization Up to Date: Yes - Suicide/Smoking/Psychosocial Hx Smoking History: Former smoker Have you smoked in the past 12 months: No If you are a former smoker, when did you quit?: 2009 Information on smoking cessation initiated: No Hx Alcohol Use: No Drug/Substance Use Hx: No Substance Use Type: None Hx Substance Use Treatment: No Review of Systems - Review of Systems Comments:: 06/27/18 17:26 GENERAL/CONSTITUTIONAL: No fever or chills. No weakness. HEAD, EYES, EARS, NOSE AND THROAT: No change in vision. No sore throat. CARDIOVASCULAR: No chest pain or shortness of breath RESPIRATORY: No cough, wheezing, or hemoptysis. GASTROINTESTINAL: +nausea, +vomiting, diarrhea or constipation. GENITOURINARY: +dysuria, frequency. MUSCULOSKELETAL: No joint or muscle swelling or pain. No neck or back pain. SKIN: No rash NEUROLOGIC: No headache, vertigo, loss of consciousness, or change in strength/ sensation. ENDOCRINE: No increased thirst. No abnormal weight change HEMATOLOGIC/LYMPHATIC: No anemia, easy bleeding, or history of blood clots. ALLERGIC/IMMUNOLOGIC: No hives or skin allergy. *Physical Exam - Vital Signs Last Vital Signs Temp Pulse Resp BP Pulse Ox 97.6 F 109 H 20 129/75 93 L 06/27/18 16:10 06/27/18 16:10 06/27/18 16:10 06/27/18 16:10 06/27/18 16:10 - Physical Exam Comments: 06/27/18 17:26 GENERAL: Awake, alert, and fully oriented, in no acute distress HEAD: No signs of trauma, normocephalic, atraumatic EYES: PERRLA, EOMI, sclera anicteric, conjunctiva clear ENT: Auricles normal inspection, hearing grossly normal, nares patent, oropharynx clear without exudates. Moist mucosa NECK: Normal ROM, supple, no lymphadenopathy, JVD, or masses LUNGS: No distress, speaks full sentences, clear to auscultation bilaterally HEART: Regular rate and rhythm, normal S1 and S2, no murmurs, rubs or gallops, peripheral pulses normal and equal bilaterally. ABDOMEN: Soft, diffusely tender. No guarding, no rebound. No masses EXTREMITIES: Normal inspection, Normal range of motion, no edema. No clubbing or cyanosis. NEUROLOGICAL: Cranial nerves II through XII grossly intact. Normal speech, no focal sensorimotor deficits SKIN: Warm, Dry, normal turgor, no rashes or lesions noted. ED Treatment Course - LABORATORY CBC & Chemistry Diagram: 06/27/18 17:30 06/27/18 17:30 - RADIOLOGY Radiology Studies Ordered: Category Date Time Status ABDOMEN & PELVIS CT WITH CONTR [CT] Stat CT Scan 06/27/18 17:13 Ordered CHEST X-RAY PORTABLE* [RAD] Stat Radiology 06/27/18 17:13 Ordered Medical Decision Making - Medical Decision Making 06/27/18 17:26 Patient is 88F with history of recently diagnosed stomach ca, copd, hypothyroidism here today complaining of abdominal pain and vomiting. Vital signs notable for tachycardia and hypoxia to 93. Hypoxia likely baseline for patient's COPD. Afebrile, rectal temp ordered. DDx includes, but is not limited to: UTI, obstruction, ileus. Pain is not out of proportion. No history of afib, do not believe that CTA is necessary to evaluate for possibility of mesenteric ischemia. Will evaluate with cbc, cmp, pt/inr, type and screen, EKG, trop, cxr, ct abd/ pelvis with iv and po contrast. Will fluid resuscitate with 500cc. Will treat pain with morphine and nausea with zofran. 06/27/18 17:46 CXR is rotated, shows no acute cardiopulmonary process. No free air under diaphragm. 06/27/18 20:17 Laboratory Tests 06/27/18 06/27/18 06/27/18 17:30 17:30 17:30 WBC 10.2 H Hgb 14.1 Plt Count 292 INR 1.00 BUN 11 Creatinine 0.6 Creat Clearance w eGFR > 60 Troponin I Lipase 113 Urine Nitrite Ur Leukocyte Esterase Urine WBC (Auto) Urine RBC (Auto) 06/27/18 06/27/18 17:30 19:15 WBC Hgb Plt Count INR BUN Creatinine Creat Clearance w eGFR Troponin I < 0.02 Lipase Urine Nitrite Negative Ur Leukocyte Esterase Trace Urine WBC (Auto) 3 Urine RBC (Auto) <1 CBC normal. CMP reassuring. Troponin undetectable. UA negative. Pending CT. 06/27/18 23:38 CT shows partial grade SBO, likely secondary to mass. Will admit to med/surg. Given fluids and additional morphine. Surgery paged. Medicine paged. 06/28/18 01:[address] Mc via DIOR Nguyễn. *DC/Admit/Observation/Transfer Diagnosis at time of Disposition: SBO (small bowel obstruction) - Discharge Dispostion Condition at time of disposition: Stable Decision to Admit order: Yes - Referrals - Patient Instructions - Post Discharge Activity
[2018-06-27 17:41] LABS: BASO % 0.7 % (0-2.0); EOS % 1.4 % (0-4.5); HEMOGLOBIN 14.1 GM/dL (10.7-15.3); LYMPH % 8.4 % (8-40); MCH 30.2 pg (25.7-33.7); MCHC 33.6 g/dl (32.0-36.0); MEAN CELL VOLUME 89.9 fl (80-96); MEAN PLT VOLUME 10.2 fl (7.5-11.1); MONO % 7.1 % (3.8-10.2); NEUT % 82.4 % (42.8-82.8); PLATELET COUNT 292 K/MM3 (134-434); RBC 4.67 M/mm3 (3.60-5.2); RDW 15.4 % (11.6-15.6); WHITE BLOOD COUNT 10.2 K/mm3 (4.0-10.0)
[2018-06-27] MEDS ORDERED: MORPHINE SULFATE 2 MG/ML VIAL ONE ×2 (17:41→22:12)
[2018-06-27] MEDS ORDERED: ONDANSETRON 4 MG/2 ML VIAL ONE (17:41)
[2018-06-27 18:00] LABS: PROTHROMBIN TIME (PATIENT) 11.3 SEC (9.7-13.0)
[2018-06-27 18:19] LABS: ALBUMIN 3.7 g/dl (3.4-5.0); ALK PHOS 72 U/L (45-117); ANION GAP 11 (8-16); BILIRUBIN,TOTAL 0.4 mg/dL (0.2-1.0); BLOOD UREA NITROGEN 11 mg/dL (7-18); CALCIUM 8.6 mg/dL (8.5-10.1); CHLORIDE 108 mmol/L (98-107); CO2 25 mmol/L (21-32); CREATININE 0.6 mg/dL (0.55-1.02); GLUCOSE,RANDOM 104 mg/dL (74-106); LIPASE 113 U/L (73-393); SGPT/ALT 17 U/L (12-78); SODIUM 144 mmol/L (136-145); TOT PROT 6.4 g/dl (6.4-8.2)
[2018-06-27 18:23] LABS: POTASSIUM 4.2 mmol/L (3.5-5.1); SGOT/AST 22 U/L (15-37)
--- NOTE | 2018-06-27 18:27 | PDOC ---
Attending Attestation - Resident Resident Name: Vasile Haile - ED Attending Attestation I have performed the following: I have examined & evaluated the patient, The case was reviewed & discussed with the resident, I agree w/resident's findings & plan, Exceptions are as noted <Kimmy Gomez - Last Filed: 06/27/18 22:57> - HPI HPI: 06/27/18 19:25 The patient is a 88 year old female, with a significant past medical history of COPD, hypothyroidism, and stomach cancer (recently diagnosed), who presents to the emergency department with, abdominal pain. The patient reports associated nausea with one episode of emesis, dysuria, and increased difficulty with bowel movements. She reports associated decreased urinary output. Her last bowel movement was yesterday. As per patient and family, they are unaware of where the stomach cancer is located. She recently had a PET scan and is being evaluated for surgery. She reports an abnormal weight loss over the past year. She denies recent fevers, chills, headache or dizziness. She denies recent diarrhea or constipation. She denies recent frequency, urgency or hematuria. She denies recent chest pain or shortness of breath. Allergies: Sulfa. Past surgical history: Appendectomy, Cholecystectomy, DEMOND/BSO. Social history: Former smoker. Denies EtOH use and recreational drug use. Primary Care Physician: Dr. Fredo Oleary - Physicial Exam PE: 06/27/18 20:02 GENERAL: Awake, alert, and fully oriented, in no acute distress HEAD: No signs of trauma +ENT: Dry mucous membrane. Hearing grossly normal. NECK: Normal ROM, supple, no lymphadenopathy, JVD, or masses LUNGS: Breath sounds equal, clear to auscultation bilaterally. No wheezes, and no crackles HEART: Regular rate and rhythm, normal S1 and S2, no murmurs, rubs or gallops +ABDOMEN: Diffuse abdominal tenderness worsening right lower and mid-lower quadrants. Soft, normoactive bowel sounds. No guarding, no rebound. No masses EXTREMITIES: Normal range of motion, no edema. No erythema or tenderness. DP/PT pulses 2+ and symmetric. Warm and well perfused. NEUROLOGICAL: ANO x3. Moves all extremities. Normal speech. SKIN: Warm, Dry, normal turgor, no rashes or lesions noted. - Medical Decision Making 06/27/18 11:41pm Call placed to Dr. Whatley, surgeon food preparation kitchen aide, case was discussed with resident. <Milo Damon - Last Filed: 06/27/18 23:42> Heart Score/ECG Review #1 General ECG Interpretation: Sinus Rhythm, Normal Rate (sinus tachycardia 95), Normal Intervals, No acute ischemic changes <Kimmy Gomez - Last Filed: 06/27/18 22:57> Attestations - Attestations 06/27/18 19:25 Documentation prepared by Milo Damon, acting as medical administrative technician for Kimmy Gomez MD. <Milo Damon - Last Filed: 06/27/18 23:42>
[2018-06-27 19:23] LABS: URINE APPEARANCE CLEAR; URINE BILIRUBIN NEGATIVE (<2.0 mg/dL); URINE COLOR LTYELLOW; URINE GLUCOSE (UA) NEGATIVE (NEGATIVE); URINE KETONE NEGATIVE (NEGATIVE); URINE LEUK ESTERASE TRACE (NEGATIVE); URINE NITRITE NEGATIVE (NEGATIVE); URINE PROTEIN NEGATIVE (NEGATIVE); URINE UROBILINOGEN NEGATIVE mg/dL (0.2-1.0)
[2018-06-27 19:27] LABS: URINE MUCUS RARE
[2018-06-27] MEDS: ACETAMINOPHEN 1000 MG/100 ML VIAL (NON FORMULARY) IVPB ONE ×2 (22:25→22:41)
[2018-06-27] MEDS ORDERED: LACTATED RINGERS SOLUTION 1,000 ML/1,000 ML INFUS.BAG IV SCH (23:45)
--- NOTE | 2018-06-27 23:50 | CONSULT ---
Consult Consult Specialty:: General surgery Reason for Consultation:: SBO on imaging - History of Present Illness Chief Complaint: abdominal pain History of Present Illness: 88 yo female PMH recently diagnosed stomach cancer (pending staging and treatments). Hyperthyroidism, COPD, Emphysema, HTN, L-Breast Ca (s/p lumpectomy) . Who presents to the ED with abdominal pain, non bilious non bloody vomiting, and watery diarrhea x3. Patient reports having a PET Scan last Friday and has an appointment with Dr. Heidy Hussein (oncology). She reports having an admission last April 15-04/30 for abdominal pain. Patient denies fever, chills cough, SOB, CP, constipation, dysuria. We were asked to assess. - History Source History Provided By: Patient, Medical Record Limitations to Obtaining History: No Limitations - Past Medical History Pulmonary: Yes: COPD Musculoskeletal: Yes: Osteoarthritis Endocrine: Yes: Hyperthyroidism - Past Surgical History Past Surgical History: Yes: Cholecystectomy, Hysterectomy - Alcohol/Substance Use Hx Alcohol Use: No History of Substance Use: reports: None - Smoking History Smoking history: Former smoker Have you smoked in the past 12 months: No If you are a former smoker, when did you quit?: 2009 - Social History ADL: Independent History of Recent Travel: No Home Medications - Allergies Allergies/Adverse Reactions: Allergies Allergy/AdvReac Type Severity Reaction Status Date / Time Sulfa (Sulfonamide Allergy "feels Verified 06/27/18 16:10 Antibiotics) like bugs are crawling in my skin" - Home Medications Home Medications: Ambulatory Orders Aspirin 81 mg PO DAILY 06/01/18 Atorvastatin Ca [Lipitor] 20 mg PO HS 06/01/18 Budesonide/Formeterol Fumarate [SYMBICORT 160/4.5mcg -] 1 inh PO DAILY 06/01/18 Cholecalciferol (Vitamin D3) [Vitamin D3] 2,000 unit PO DAILY 06/01/18 Methimazole [Tapazole -] 5 mg PO ASDIR 06/01/18 Multivitamin [Multiple Vitamins] 1 each PO DAILY 06/01/18 Tiotropium [place] [Spiriva] 1 inh IH DAILY 06/01/18 Polyethylene Glycol 3350 [Miralax 119 gm Btl -] 17 gm PO ASDIR 06/02/18 Cyclobenzaprine HCl 0 mg PO HS 06/27/18 Pantoprazole Sodium [Protonix] 40 mg PO DAILY 06/27/18 oxyCODONE SR [Oxycontin] 0 mg PO BID 06/27/18 traMADol HCL [Ultram] 50 mg PO Q8H PRN 06/27/18 Family Disease History - Family Disease History Family Disease History: CA: Mother (ovarian), Other: Father (pneumonia), Son ( CVA) Review of Systems - Review of Systems Constitutional: reports: Unintentional Wgt. Loss. denies: Chills, Fever Eyes: denies: Blurred Vision, Recent Change in Vision HENT: denies: Difficult Swallowing, Throat Pain, Toothache Neck: denies: Decreased ROM, Lumps, Tenderness Cardiovascular: denies: Chest Pain, Palpitations Respiratory: denies: Cough, SOB Gastrointestinal: reports: Abdominal Pain, Bloating, Constipation, Diarrhea, Indigestion, Nausea, Vomiting Genitourinary: denies: Discharge, Dysuria Breasts: reports: No Symptoms Reported. denies: Pain Musculoskeletal: denies: Back Pain, Muscle Pain, Muscle Weakness Integumentary: denies: Eczema, Pallor Neurological: denies: Syncope, Tremors Endocrine: reports: Unexplained Weight Loss. denies: Unexplained Weight Gain Hematology/Lymphatic: denies: Easily Bruised, Excessive Bleeding Psychiatric: reports: Depression. denies: Anxiety Physical Exam Vital Signs: Vital Signs Temperature 97.6 F 06/27/18 16:10 Pulse Rate 109 H 06/27/18 16:10 Respiratory Rate 20 06/27/18 16:10 Blood Pressure 129/75 06/27/18 16:10 O2 Sat by Pulse Oximetry (%) 93 L 06/27/18 16:10 Constitutional: Yes: No Distress, Calm, Thin Eyes: Yes: Conjunctiva Clear, EOM Intact HENT: Yes: Atraumatic, Normocephalic Neck: Yes: Supple, Trachea Midline Cardiovascular: Yes: Regular Rate and Rhythm, S1 Respiratory: Yes: Regular, CTA Bilaterally Gastrointestinal: Yes: Normal Bowel Sounds, Soft. No: Tenderness, Tenderness, Epigastrium, Tenderness, Rebound ...Rectal Exam: Yes: Deferred Renal/: No: CVA Tenderness - Left, CVA Tenderness - Right Extremities: No: Cool, Cyanosis Integumentary: No: Jaundice, Skin Tear, Tattoos Neurological: Yes: Alert, Oriented Psychiatric: Yes: Alert, Oriented Labs: CBC, BMP 06/27/18 17:30 06/27/18 17:30 Imaging - Results Cat Scan: Report Reviewed, Image Reviewed (SBO pattern, gastic mass.) Problem List - Problems (1) SBO (small bowel obstruction) Assessment/Plan: 88yo female Gastric cancer with SBO pattern on passing BM and flatus. Observered ileus pattern may be due to opiate pain medication. sympotoms are best managed medically. Strongly reccomend followup at [facility] for further management. No acute intervention from general surgery at this time. Medical management of symptoms reassurance of patient and family Diet as tolerated antiemetic therapy adequate analgesia F/u with oncology on Friday 06/29 at [facility] Recall as needed between now and discharge Code(s): K56.609 - UNSP INTESTNL OBST, UNSP TO PARTIAL VERSUS COMPLETE OBST (2) Gastric carcinoma Code(s): C16.9 - MALIGNANT NEOPLASM OF STOMACH, UNSPECIFIED (3) COPD (chronic obstructive pulmonary disease) Code(s): J44.9 - CHRONIC OBSTRUCTIVE PULMONARY DISEASE, UNSPECIFIED (4) DJD (degenerative joint disease) of cervical spine Code(s): M47.812 - SPONDYLOSIS W/O MYELOPATHY OR RADICULOPATHY, CERVICAL REGION (5) HLD (hyperlipidemia) Code(s): E78.5 - HYPERLIPIDEMIA, UNSPECIFIED (6) HTN (hypertension) Code(s): I10 - ESSENTIAL (PRIMARY) HYPERTENSION Qualifiers: Hypertension type: essential hypertension Qualified Code(s): I10 - Essential (primary) hypertension (7) Hyperthyroidism Code(s): E05.90 - THYROTOXICOSIS, UNSP WITHOUT THYROTOXIC CRISIS OR STORM
[2018-06-27] MEDS ORDERED: morphine CARPU-JECT 4 MG/1 ML DISP.SYRIN IVPUSH ONE (23:56)
[2018-06-28] MEDS ORDERED: MORPHINE SULFATE 2 MG/ML VIAL ONE (00:09)
[2018-06-28] MEDS ORDERED: ONDANSETRON 4 MG/2 ML VIAL IVPUSH PRN (02:53)
[2018-06-28] MEDS ORDERED: MORPHINE SULFATE 2 MG/ML VIAL IVPUSH PRN (02:55)
--- NOTE | 2018-06-28 03:02 | HP ---
CHIEF COMPLAINT: Abdominal Pain, Vomiting PCP: Dr. Oleary HISTORY OF PRESENT ILLNESS: This is a 88 y/o woman with a PMHx of: Stomach Ca (recent diagnosis, pending staging and treatments). Hyperthyroidism, COPD, Emphysema, HTn, L-Breast Ca (s/ p lumpectomy). Who presents to the ED with abdominal pain, non bilious non bloody vomiting, and watery diarrhea x3. Patient reports having a PET Scan last Friday and has an appointment with Dr. Heidy Hussein (oncology). She reports having an admission last April 15-04/30 for abdominal pain. Patient denies fever , chills cough, SOB, CP, constipation, dysuria. ER course was notable for: (1) CTAP- Partial SBO (2) WBC 10.2, Lactic Acid 1.3 (3) Recent Travel: None PAST MEDICAL HISTORY: See HPI PAST SURGICAL HISTORY: L- Lumpectomy R- wrist Hysterectomy, R-oophrectomy 1963 L- oophrectomy Tonsilectomy 1960 Social History: Smoking: Former Alcohol: None Drugs: None Lives with Daughter, Independent Family History: Non-contributory Allergies Sulfa (Sulfonamide Antibiotics) Allergy (Verified 06/27/18 16:10) "feels like bugs are crawling in my skin" HOME MEDICATIONS: Home Medications Medication Instructions Recorded Aspirin 81 mg PO DAILY 06/01/18 Atorvastatin Ca [Lipitor] 20 mg PO HS 06/01/18 Budesonide/Formeterol Fumarate 1 inh PO DAILY 06/01/18 [SYMBICORT 160/4.5mcg -] Cholecalciferol (Vitamin D3) 2,000 unit PO DAILY 06/01/18 [Vitamin D3] Methimazole [Tapazole -] 5 mg PO ASDIR 06/01/18 Multivitamin [Multiple Vitamins] 1 each PO DAILY 06/01/18 Tiotropium [place] [Spiriva] 1 inh IH DAILY 06/01/18 Polyethylene Glycol 3350 [Miralax 17 gm PO ASDIR 06/02/18 119 gm Btl -] Cyclobenzaprine HCl 0 mg PO HS 06/27/18 Pantoprazole Sodium [Protonix] 40 mg PO DAILY 06/27/18 oxyCODONE SR [Oxycontin] 0 mg PO BID 06/27/18 traMADol HCL [Ultram] 50 mg PO Q8H PRN 06/27/18 REVIEW OF SYSTEMS CONSTITUTIONAL: Absent: fever, chills, diaphoresis, generalized weakness, malaise, loss of appetite, weight change HEENT: Absent: rhinorrhea, nasal congestion, throat pain, throat swelling, difficulty swallowing, mouth swelling, ear pain, eye pain, visual changes CARDIOVASCULAR: Absent: chest pain, syncope, palpitations, irregular heart rate, lightheadedness , peripheral edema RESPIRATORY: Absent: cough, shortness of breath, dyspnea with exertion, orthopnea, wheezing, stridor, hemoptysis GASTROINTESTINAL: abdominal pain, nausea, vomiting, diarrhea Absent: abdominal distention, constipation, melena, hematochezia GENITOURINARY: Absent: dysuria, frequency, urgency, hesitancy, hematuria, flank pain, genital pain MUSCULOSKELETAL: Absent: myalgia, arthralgia, joint swelling, back pain, neck pain SKIN: Absent: rash, itching, pallor HEMATOLOGIC/IMMUNOLOGIC: Absent: easy bleeding, easy bruising, lymphadenopathy, frequent infections ENDOCRINE: Absent: unexplained weight gain, unexplained weight loss, heat intolerance, cold intolerance NEUROLOGIC: Absent: headache, focal weakness or paresthesias, dizziness, unsteady gait, seizure, mental status changes, bladder or bowel incontinence PSYCHIATRIC: Absent: anxiety, depression, suicidal or homicidal ideation, hallucinations. PHYSICAL EXAMINATION Vital Signs - 24 hr 06/27/18 06/27/18 06/28/18 16:10 19:45 01:59 Temperature 97.6 F 98.7 F 98.6 F Pulse Rate 109 H Pulse Rate [ 106 H 107 H Apical] Respiratory 20 18 16 Rate Blood Pressure 129/75 Blood Pressure 142/87 166/91 [Right Arm] O2 Sat by Pulse 93 L 98 98 Oximetry (%) GENERAL: Awake, alert, and fully oriented, in no acute distress. HEAD: Normal with no signs of trauma. EYES: Pupils equal, round and reactive to light, extraocular movements intact, sclera anicteric, conjunctiva clear. No lid lag. EARS, NOSE, THROAT: Ears normal, nares patent, oropharynx clear without exudates. Dry mucous membranes. NECK: Normal range of motion, supple without lymphadenopathy, JVD, or masses. LUNGS: Breath sounds equal, clear to auscultation bilaterally. No wheezes, and no crackles. No accessory muscle use. HEART: Regular rate and rhythm, normal S1 and S2 without murmur, rub or gallop. ABDOMEN: Soft, generalized tender, not distended, normoactive bowel sounds, no guarding, no rebound, no masses. No hepatomegaly or splenomegaly. MUSCULOSKELETAL: Normal range of motion at all joints. No bony deformities or tenderness. No CVA tenderness. UPPER EXTREMITIES: 2+ pulses, warm, well-perfused. No cyanosis. No clubbing. No peripheral edema. LOWER EXTREMITIES: 2+ pulses, warm, well-perfused. No calf tenderness. No peripheral edema. NEUROLOGICAL: Cranial nerves II-XII intact. Normal speech. Gait not observed. PSYCHIATRIC: Cooperative. Good eye contact. Appropriate mood and affect. SKIN: Warm, dry, normal turgor, no rashes or lesions noted, normal capillary refill. Laboratory Results - last 24 hr 06/27/18 06/27/18 06/27/18 17:30 17:30 17:30 WBC 10.2 H RBC 4.67 Hgb 14.1 Hct 42.0 MCV 89.9 MCH 30.2 MCHC 33.6 RDW 15.4 Plt Count 292 MPV 10.2 Absolute Neuts (auto) 8.4 H Neutrophils % 82.4 D Lymphocytes % 8.4 D Monocytes % 7.1 Eosinophils % 1.4 Basophils % 0.7 Nucleated RBC % 0 PT with INR 11.30 INR 1.00 Sodium 144 Potassium 4.2 Chloride 108 H Carbon Dioxide 25 Anion Gap 11 BUN 11 Creatinine 0.6 Creat Clearance w eGFR > 60 Random Glucose 104 Lactic Acid Calcium 8.6 Total Bilirubin 0.4 AST 22 ALT 17 Alkaline Phosphatase 72 Creatine Kinase Troponin I Total Protein 6.4 Albumin 3.7 Lipase 113 Urine Color Urine Appearance Urine pH Ur Specific [place] Urine Protein Urine Glucose (UA) Urine Ketones Urine Blood Urine Nitrite Urine Bilirubin Urine Urobilinogen Ur Leukocyte Esterase Urine WBC (Auto) Urine RBC (Auto) Urine Mucus Blood Type Antibody Screen 06/27/18 06/27/18 06/27/18 17:30 17:30 17:30 WBC RBC Hgb Hct MCV MCH MCHC RDW Plt Count MPV Absolute Neuts (auto) Neutrophils % Lymphocytes % Monocytes % Eosinophils % Basophils % Nucleated RBC % PT with INR INR Sodium Potassium Chloride Carbon Dioxide Anion Gap BUN Creatinine Creat Clearance w eGFR Random Glucose Lactic Acid 1.3 Calcium Total Bilirubin AST ALT Alkaline Phosphatase Creatine Kinase 53 Troponin I < 0.02 Total Protein Albumin Lipase Urine Color Urine Appearance Urine pH Ur Specific [place] Urine Protein Urine Glucose (UA) Urine Ketones Urine Blood Urine Nitrite Urine Bilirubin Urine Urobilinogen Ur Leukocyte Esterase Urine WBC (Auto) Urine RBC (Auto) Urine Mucus Blood Type Cancelled Antibody Screen Cancelled 06/27/18 19:15 WBC RBC Hgb Hct MCV MCH MCHC RDW Plt Count MPV Absolute Neuts (auto) Neutrophils % Lymphocytes % Monocytes % Eosinophils % Basophils % Nucleated RBC % PT with INR INR Sodium Potassium Chloride Carbon Dioxide Anion Gap BUN Creatinine Creat Clearance w eGFR Random Glucose Lactic Acid Calcium Total Bilirubin AST ALT Alkaline Phosphatase Creatine Kinase Troponin I Total Protein Albumin Lipase Urine Color Ltyellow Urine Appearance Clear Urine pH 6.0 Ur Specific [place] 1.005 Urine Protein Negative Urine Glucose (UA) Negative Urine Ketones Negative Urine Blood Negative Urine Nitrite Negative Urine Bilirubin Negative Urine Urobilinogen Negative Ur Leukocyte Esterase Trace Urine WBC (Auto) 3 Urine RBC (Auto) <1 Urine Mucus Rare Blood Type Antibody Screen ASSESSMENT/PLAN: 88 y/o woman Admitted for Intractable Abdominal Pain for further evaluation of their emergent condition. Plan: FEN - D51/2NS@75cc/hr - Replete lytes prn - NPO DVT ppx - OOB - SCDs - Heparin SQ Code Status: Full Code Dispo: Requires Inpatient Care Problem List - Problem (1) SBO (small bowel obstruction) Assessment/Plan: - CT- partial SBO - Appreciate Surgical consult - NPO - IVF - Zofran prn - Morphine Sulfate prn - Repeat CBC, BMP in am - Lactic Acid in am Code(s): K56.609 - UNSP INTESTNL OBST, UNSP TO PARTIAL VERSUS COMPLETE OBST (2) COPD (chronic obstructive pulmonary disease) Assessment/Plan: - stable - Continue Spirva, Symbicort Code(s): J44.9 - CHRONIC OBSTRUCTIVE PULMONARY DISEASE, UNSPECIFIED (3) HLD (hyperlipidemia) Assessment/Plan: - Hold med secondary to SBO Code(s): E78.5 - HYPERLIPIDEMIA, UNSPECIFIED (4) HTN (hypertension) Assessment/Plan: - stable - Monitor BP - No current meds Code(s): I10 - ESSENTIAL (PRIMARY) HYPERTENSION Qualifiers: Hypertension type: essential hypertension Qualified Code(s): I10 - Essential (primary) hypertension (5) Hyperthyroidism Assessment/Plan: - stable - Continue home med Code(s): E05.90 - THYROTOXICOSIS, UNSP WITHOUT THYROTOXIC CRISIS OR STORM Visit type - Emergency Visit Emergency Visit: Yes ED Registration Date: 06/27/18 Care time: The patient presented to the Emergency Department on the above date and was hospitalized for further evaluation of their emergent condition. - New Patient This patient is new to me today: Yes Date on this admission: 06/27/18 - Critical Care Critical Care patient: No Hospitalist Screening - Colonoscopy Questionnaire Colonoscopy Questionnaire: Colonoscopy Questionnaire - Patient: 50 - 75 years old and never had a screening colonoscopy: Unknown History of colon or rectal polyps, or CA: Unknown History of IBD, Crohn's disease or UC: Unknown History of abdominal radiation therapy as a child: Unknown - Relative: 1 with colon or rectal CA, or polyps at age 60 or younger: Unknown Colon or rectal CA diagnosed at age 45 or younger: Unknown Multiple relatives with colon or rectal CA: Unknown - Outcome: Screening Result: Negative Screen
[2018-06-28] MEDS: DEXTROSE 5%-0.45% SALINE 1,000 ML IV SCH ×2 (03:07→22:29)
[2018-06-28 03:43] VITALS: BMI 18.9
[2018-06-28 07:12] LABS: ANION GAP 7 (8-16); BLOOD UREA NITROGEN 9 mg/dL (7-18); CALCIUM 7.8 mg/dL (8.5-10.1); CHLORIDE 108 mmol/L (98-107); CO2 30 mmol/L (21-32); CREATININE 0.5 mg/dL (0.55-1.02); GLUCOSE,RANDOM 118 mg/dL (74-106); SODIUM 145 mmol/L (136-145)
[2018-06-28 07:15] LABS: BASO % 0.3 % (0-2.0); EOS % 1.7 % (0-4.5); HEMATOCRIT 38.6 % (32.4-45.2); MCH 30.2 pg (25.7-33.7); MCHC 33.7 g/dl (32.0-36.0); MEAN CELL VOLUME 89.7 fl (80-96); MEAN PLT VOLUME 9.9 fl (7.5-11.1); MONO % 9.6 % (3.8-10.2); NEUT % 79.4 % (42.8-82.8); PLATELET COUNT 261 K/MM3 (134-434); RBC 4.31 M/mm3 (3.60-5.2); RDW 15.1 % (11.6-15.6)
[2018-06-28] MEDS ORDERED: PT OWN MED DRAWER 7, Y5N ONE ×2 (09:28→15:27)
[2018-06-28] MEDS: TIOTROPIUM BROMIDE 2.5 MCG (SPIRIVA) RESPIMAT INHALER IH SCH (09:42)
[2018-06-28] MEDS: BUDESONIDE/FORMETEROL FUMARATE 160/4.5 mcg INHALER IH SCH ×2 (09:42→22:28)
[2018-06-28] MEDS: HEPARIN NA (PORCINE) 5,000 UNITS/ML 1ML VIAL SQ SCH ×2 (09:44→22:28)
--- NOTE | 2018-06-28 10:23 | PN ---
Progress Note, Physician Chief Complaint: Feels improved less abd distention History of Present Illness: 88 y/o woman with a PMHx of: Stomach Ca (recent diagnosis, pending staging and treatments). Hyperthyroidism, COPD, Emphysema, HTn, L-Breast Ca (s/p lumpectomy) . Who presents to the ED with abdominal pain, non bilious non bloody vomiting, and watery diarrhea x3. CT abd shows Partial SBO. - Current Medication List Current Medications: Active Medications Budesonide/Formoterol Fumarate (Symbicort 160/4.5mcg -) 1 puff IH BID [facility] Last Admin: 06/28/18 09:42 Dose: 1 puff Heparin Sodium (Porcine) (Heparin -) 5,000 unit SQ BID [facility] Last Admin: 06/28/18 09:44 Dose: 5,000 unit Dextrose/Sodium Chloride (D5-1/2ns -) 1,000 mls @ 75 mls/hr IV ASDIR [facility] Last Admin: 06/28/18 03:07 Dose: 75 mls/hr Morphine Sulfate (Morphine Sulfate) 2 mg IVPUSH Q4H PRN PRN Reason: PAIN LEVEL 7 - 10 Ondansetron HCl (Zofran Injection) 4 mg IVPUSH Q6H PRN PRN Reason: NAUSEA Tiotropium [place] (Spiriva Respimat) 2 puff IH DAILY [facility] Last Admin: 06/28/18 09:42 Dose: 2 puff - Objective Vital Signs: Vital Signs Temperature 97.8 F 06/28/18 03:24 Pulse Rate 102 H 06/28/18 03:24 Respiratory Rate 20 06/28/18 03:24 Blood Pressure 151/65 06/28/18 03:24 O2 Sat by Pulse Oximetry (%) 95 06/28/18 03:24 Constitutional: Yes: Well Nourished, No Distress HENT: Yes: WNL Neck: Yes: WNL, Supple, Trachea Midline Cardiovascular: Yes: WNL, Regular Rate and Rhythm, S1, S2 Respiratory: Yes: Regular, CTA Bilaterally Gastrointestinal: Yes: Abdomen, Obese, Distention Edema: No Peripheral Pulses WNL: Yes Peripheral Pulses: Left Doralis Pedis: 1+, Right Dorsalis Pedis: 1+ Neurological: Yes: WNL, Alert, Oriented Labs: CBC, BMP 06/28/18 06:40 06/28/18 06:40 INR, PTT INR 1.00 (0.83-1.09) 06/27/18 17:30 - ....Imaging Cat Scan: Report Reviewed (Partial SBO) Problem List - Problems (1) SBO (small bowel obstruction) Assessment/Plan: Improved able to tolerate PO, will advance PO Code(s): K56.609 - UNSP INTESTNL OBST, UNSP TO PARTIAL VERSUS COMPLETE OBST (2) Gastric carcinoma Assessment/Plan: Known case F/U at [facility] it , patient had a PET scan schedule for F/U on at [facility] Code(s): C16.9 - MALIGNANT NEOPLASM OF STOMACH, UNSPECIFIED (3) COPD (chronic obstructive pulmonary disease) Assessment/Plan: Cont home meds Duo neb PRN Code(s): J44.9 - CHRONIC OBSTRUCTIVE PULMONARY DISEASE, UNSPECIFIED (4) HTN (hypertension) Assessment/Plan: Well controlled cont home meds Code(s): I10 - ESSENTIAL (PRIMARY) HYPERTENSION Qualifiers: Hypertension type: essential hypertension Qualified Code(s): I10 - Essential (primary) hypertension (5) Daily pain Code(s): R52 - PAIN, UNSPECIFIED (6) Back pain Assessment/Plan: Chronic on multiple narcotic pain meds will reintroduced once able to tolerate PO Code(s): M54.9 - DORSALGIA, UNSPECIFIED
[2018-06-28] MEDS ORDERED: ACETAMINOPHEN 325 MG TABLET (FP) ONE (13:58)
[2018-06-28] MEDS ORDERED: ACETAMINOPHEN 325 MG TABLET (FP) PO PRN (14:12)
[2018-06-28] MEDS ORDERED: METHIMAZOLE 5 MG TABLET (FP) PO SCH ×2 (14:15→16:07)
[2018-06-28] MEDS: POLYETHYLENE GLYCOL 3350 119 GM BTL PO SCH (17:57)
--- NOTE | 2018-06-28 19:20 | EKG ---
Test Reason : Blood Pressure : / mmHG Vent. 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
[2018-06-28] MEDS ORDERED: ATORVASTATIN CA 20 MG TABLET (FP) PO SCH (22:00)
[2018-06-29 07:16] LABS: BASO % 0.8 % (0-2.0); EOS % 2.5 % (0-4.5); HEMATOCRIT 36.3 % (32.4-45.2); HEMOGLOBIN 12.4 GM/dL (10.7-15.3); LYMPH % 17.3 % (8-40); MCH 30.4 pg (25.7-33.7); MCHC 34.1 g/dl (32.0-36.0); MEAN CELL VOLUME 89.1 fl (80-96); MEAN PLT VOLUME 10.2 fl (7.5-11.1); MONO % 10.4 % (3.8-10.2); PLATELET COUNT 230 K/MM3 (134-434); RBC 4.08 M/mm3 (3.60-5.2); RDW 15.3 % (11.6-15.6); WHITE BLOOD COUNT 5.9 K/mm3 (4.0-10.0)
[2018-06-29 07:46] LABS: ANION GAP 8 (8-16); BLOOD UREA NITROGEN 6 mg/dL (7-18); CALCIUM 7.8 mg/dL (8.5-10.1); CHLORIDE 108 mmol/L (98-107); CO2 30 mmol/L (21-32); CREATININE 0.4 mg/dL (0.55-1.02); GLUCOSE,RANDOM 120 mg/dL (74-106); POTASSIUM 3.6 mmol/L (3.5-5.1); SODIUM 146 mmol/L (136-145)
[2018-06-29] MEDS ORDERED: PT OWN MED DRAWER 7, Y5N ONE (09:11)
[2018-06-29] MEDS: TIOTROPIUM BROMIDE 2.5 MCG (SPIRIVA) RESPIMAT INHALER IH SCH (09:12)
[2018-06-29] MEDS: HEPARIN NA (PORCINE) 5,000 UNITS/ML 1ML VIAL SQ SCH (09:12)
[2018-06-29] MEDS: BUDESONIDE/FORMETEROL FUMARATE 160/4.5 mcg INHALER IH SCH (09:13)
[2018-06-29] MEDS: DEXTROSE 5%-0.45% SALINE 1,000 ML IV SCH (09:13)
[2018-06-29] MEDS ORDERED: ASPIRIN 81 MG CHEWABLE TABLETS PO SCH (10:00)
[2018-06-29] MEDS ORDERED: PANTOPRAZOLE 40 MG TABLET (FP) PO SCH (10:00)
[2018-06-29 11:24] VITALS: TEMP 97.9
--- NOTE | 2018-06-29 11:53 | DS ---
Physical Examination Vital Signs: Vital Signs Temperature 97.9 F 06/29/18 09:00 Pulse Rate 78 06/29/18 09:00 Respiratory Rate 18 06/29/18 09:00 Blood Pressure 140/71 06/29/18 09:00 O2 Sat by Pulse Oximetry (%) 99 06/29/18 09:00 Constitutional: Yes: No Distress, Calm, Thin Cardiovascular: Yes: WNL, Regular Rate and Rhythm, Gallop Respiratory: Yes: WNL, Regular, CTA Bilaterally. No: Rhonchi, SOB, Tachypnea, Wheezes Gastrointestinal: Yes: WNL, Normal Bowel Sounds, Soft. No: Distention, Tenderness, Vomiting Renal/: Yes: WNL Edema: No Neurological: Yes: WNL, Alert, Oriented Psychiatric: Yes: WNL, Alert, Oriented Labs: CBC, BMP 06/29/18 06:00 06/29/18 06:00 Discharge Summary Reason For Visit: SMALL BOWEL OBSTRUCTION Current Active Problems Back pain (Chronic) Daily pain (Chronic) Gastric carcinoma (Chronic) Hospital Course: is a 88 year old female pmh significant for gastric carcinoma who was admitted with partial SBO. Pt managed conservatively by surgery, tolerating diet without n/v, passing flatus. Suspect opioid induced ileus. Pt cleared for discharge by Surgery. Pt doing well today, labs unremarkable, vitals stable, tolerating diet. repeat xray without obstruction. Advised pt to f/u with [facility] for management of gastric CA. Recommend adequate hydration, high fiber diet. Pt is medically stable for discharge home. Condition: Improved - Instructions Diet, Activity, Other Instructions: F/u as directed diet as tolerated, high fiber diet maintain hydration ambulate as tolerated continue home meds, limit narcotic meds as much as possible Referrals: PET SCAN, [facility] [Other] - 07/02/18 Fredo Oleary MD [Primary Care Provider] - 1 Week Disposition: HOME - Home Medications Comprehensive Discharge Medication List: Ambulatory Orders Aspirin 81 mg PO DAILY 06/01/18 Atorvastatin Ca [Lipitor] 20 mg PO HS 06/01/18 Budesonide/Formeterol Fumarate [SYMBICORT 160/4.5mcg -] 1 inh PO DAILY 06/01/18 Cholecalciferol (Vitamin D3) [Vitamin D3] 2,000 unit PO DAILY 06/01/18 Methimazole [Tapazole -] 5 mg PO ASDIR 06/01/18 Multivitamin [Multiple Vitamins] 1 each PO DAILY 06/01/18 Tiotropium [place] [Spiriva] 1 inh IH DAILY 06/01/18 Polyethylene Glycol 3350 [Miralax 119 gm Btl -] 17 gm PO ASDIR 06/02/18 Cyclobenzaprine HCl 0 mg PO HS 06/27/18 Pantoprazole Sodium [Protonix] 40 mg PO DAILY 06/27/18 oxyCODONE SR [Oxycontin] 0 mg PO BID 06/27/18 traMADol HCL [Ultram -] 50 mg PO Q8H PRN 06/27/18 Acetaminophen [Tylenol .Regular Strength -] 650 mg PO Q6H PRN tablet 06/29/18
[2018-06-29] MEDS: POLYETHYLENE GLYCOL 3350 119 GM BTL PO SCH (14:29)
[2018-06-29 14:33] VITALS: BP 130/74; PULSE 86
== END 2018-06-29 14:33 | disposition home or self-care (01) | DRG 389 ==
LOC: JER 16:02 → JERBED 06-28 00:42 → J7W 06-28 03:03
PROVIDERS: ADMIT Internal Medicine; ATTEND Internal Medicine
DX: K56.690 Other partial intestinal obstruction (principal); C16.9 Malignant neoplasm of stomach, unspecified; F11.20 Opioid dependence, uncomplicated; Z68.1 Body mass index [BMI] 19.9 or less, adult; J44.9 Chronic obstructive pulmonary disease, unspecified; I10 Essential (primary) hypertension; E05.90 Thyrotoxicosis, unspecified without thyrotoxic crisis or storm; I51.7 Cardiomegaly; R63.4 Abnormal weight loss; E78.5 Hyperlipidemia, unspecified; M19.90 Unspecified osteoarthritis, unspecified site; M47.812 Spondylosis without myelopathy or radiculopathy, cervical region; M54.9 Dorsalgia, unspecified; Z87.891 Personal history of nicotine dependence; Z85.3 Personal history of malignant neoplasm of breast
CPT/HCPCS: 36415; 71045-TC-FY; 74019-TC-FY; 74177-TC; 80048; 80053; 81003; 81015; 82550; 83605; 83690; 84484; 85025; 85610; 87086; 93005; 93010; 99284-25; J0131; J1644

== ENCOUNTER 2018-07-06 11:44 | Emergency (ER) | payer OTHER ==
--- NOTE | 2018-07-06 11:47 | PDOC ---
Attending Attestation - Resident Resident Name: Starr Stafford - ED Attending Attestation I have performed the following: I have examined & evaluated the patient, The case was reviewed & discussed with the resident, I agree w/resident's findings & plan, Exceptions are as noted - HPI HPI: 07/06/18 12:24 Metastatic stomach cancer, treated at [facility], to begin chemotherapy. Intractable nausea and vomiting for several days. No hematemesis. Loose stools without suggestion of blood or melena. Mild diffuse abdominal pain. No fever/ chills COPD, hypothyroidism, no recent tobacco or alcohol. - Physicial Exam PE: 07/06/18 12:25 Alert, no acute distress. Somewhat cachectic but cooperative. Afebrile, vital signs normal HEENT: Dry mucous membranes. Somewhat pale Neck supple without bruit mass or nodes Chest clear CV regular without murmur rub or gallop Abdomen nondistended. Bowel sounds active. Mild diffuse tenderness to deep palpation most prominent in the epigastrium. No guarding or rebound. No CVAT Skin turgor is poor, but non icteric Neurological intact - Medical Decision Making 07/06/18 12:27 Assessment: Intractable nausea and vomiting secondary to malignancy, no sign of acute abdomen, mild to moderate dehydration Plan: Baseline labs and IV hydration, Zofran for nausea, by mouth fluids when stable. 07/06/18 15:18 CBC and chemistries showed no significant abnormalities. After intravenous hydration and anti-emetic, patient felt much better. No significant pain. Tolerating by mouth fluids well.
[2018-07-06 11:52] VITALS: TEMP 97.7; BMI 18.5
[2018-07-06] MEDS ORDERED: ONDANSETRON 4 MG/2 ML VIAL IVPUSH ONE (12:23)
[2018-07-06] MEDS ORDERED: SODIUM CHLORIDE 0.9% 500 ML INFUS.BAG IV ONE ×2 (12:23→14:14)
[2018-07-06] MEDS ORDERED: ONDANSETRON 4 MG/2 ML VIAL ONE (12:27)
[2018-07-06 12:54] LABS: HEMATOCRIT 41.5 % (32.4-45.2); HEMOGLOBIN 13.6 GM/dl (10.7-15.3); MCH 30.1 pg (25.7-33.7); MCHC 32.8 g/dl (32.0-36.0); MEAN CELL VOLUME 91.6 fl (80-96); MEAN PLT VOLUME 9.7 fl (7.5-11.1); PLATELET COUNT 347 K/MM3 (134-434); RBC 4.53 M/mm3 (3.60-5.2); RDW 14.7 % (11.6-15.6); WHITE BLOOD COUNT 7.5 K/mm3 (4.0-10.8)
--- NOTE | 2018-07-06 12:59 | PDOC ---
History of Present Illness - General Chief Complaint: Nausea/Vomiting Stated Complaint: VOMITING Time Seen by Provider: 07/06/18 12:23 - History of Present Illness Initial Comments: Caitlyn Kendrick is an 88yo woman with a PMH of metastatic gastric CA, COPD, hypothyroidism who presents from her PMD today due to multiple eposides of vomiting and inability to tolerate PO at home since Friday. Per Ms Kendrick and her daughters, present in the ED, she was hospitalized last week with similar symptoms but was feeling well when discharged on Friday afternoon. She was able to eat dinner Friday. However, starting on Friday morning she unable to take any food or drink by mouth. Today, she had approximately 10 episodes of vomiting, including "dry heaves," after trying to drink a small glass of water. Ms Kendrick was at her physician's office this morning for an echo and was sent to the ED for IV hydration and zofran. She has a scheduled port placement tomorrow in anticipation of starting chemotherapy; she needs medical optimization prior to the planned procedure. Past History - Past Medical History Allergies/Adverse Reactions: Allergies Allergy/AdvReac Type Severity Reaction Status Date / Time Sulfa (Sulfonamide Allergy "feels Verified 07/06/18 11:55 Antibiotics) like bugs are crawling in my skin" Home Medications: Ambulatory Orders Aspirin 81 mg PO DAILY 06/01/18 Atorvastatin Ca [Lipitor] 20 mg PO HS 06/01/18 Budesonide/Formeterol Fumarate [SYMBICORT 160/4.5mcg -] 1 inh PO DAILY 06/01/18 Cholecalciferol (Vitamin D3) [Vitamin D3] 2,000 unit PO DAILY 06/01/18 Methimazole [Tapazole -] 5 mg PO ASDIR 06/01/18 Multivitamin [Multiple Vitamins] 1 each PO DAILY 06/01/18 Tiotropium [place] [Spiriva] 1 inh IH DAILY 06/01/18 Polyethylene Glycol 3350 [Miralax 119 gm Btl -] 17 gm PO ASDIR 06/02/18 Cyclobenzaprine HCl 10 mg PO HS 06/27/18 Pantoprazole Sodium [Protonix] 40 mg PO DAILY 06/27/18 oxyCODONE SR [Oxycontin] 5 mg PO BID 06/27/18 traMADol HCL [Ultram -] 50 mg PO Q8H PRN 06/27/18 Acetaminophen [Tylenol .Regular Strength -] 650 mg PO Q6H PRN tablet 06/29/18 Ondansetron [Zofran Odt -] 4 mg GT TID PRN #30 tab.rapdis 07/06/18 Anemia: No Asthma: No Cancer: Yes (LEFT BREAST, COLON) Cardiac Disorders: Yes (ENLARGED HEART,AORTIC VALVE DISEASE??) CVA: No COPD: Yes CHF: No Dementia: No Diabetes: No GI Disorders: No Disorders: No HTN: Yes Hypercholesterolemia: Yes Liver Disease: No Seizures: No Thyroid Disease: Yes (hyper) - Surgical History Abdominal Surgery: No Appendectomy: Yes Cardiac Surgery: No Cholecystectomy: Yes Lung Surgery: (L BREAST LUMPECTOMY) Neurologic Surgery: No Orthopedic Surgery: Yes (R WRIST ORIF) - Immunization History Immunization Up to Date: Yes - Suicide/Smoking/Psychosocial Hx Smoking History: Never smoked Have you smoked in the past 12 months: No If you are a former smoker, when did you quit?: 2009 Hx Alcohol Use: No Drug/Substance Use Hx: No Substance Use Type: None Hx Substance Use Treatment: No Review of Systems - Review of Systems Comments:: General: No fevers, no chills, no malaise. +appetite change HEENT: No changes in vision, no changes in hearing, no congestion, no sore throat CV: No chest pain, no palpitations, no LE edema Pulm: No SOB, no cough, no wheezing. +h/o COPD GI: See HPI. No change in bowel habits. : +minimal urination Musc: No back pain, no joint swelling, no recent injury Skin: No rash, no lesions, no erythema Endo: No excessive thirst, no heat/cold intolerance Heme: No unusual bruising or bleeding, no swollen glands Neuro: No syncope, no numbness/tingling, no focal weakness Vasc: No claudication Psych: No recent change in mood, no SI or HI *Physical Exam - Vital Signs Last Vital Signs Temp Pulse Resp BP Pulse Ox 97.7 F 101 H 18 124/63 95 07/06/18 11:47 07/06/18 11:47 07/06/18 11:47 07/06/18 11:47 07/06/18 11:47 - Physical Exam Comments: General: Comfortable, no acute distress HEENT: PERRL, EOMI, MMM, voice normal, normal neck ROM, no LAD Cards: RRR, no murmur appreciated. Borderline tachycardic Pulm: Comfortable on room air, clear to auscultation bilaterally Abd: Soft,non-distended. Diffusely TTP : No CVA tenderness Ext: Atraumatic. No LE edema. ROM intact. Strength 5/5 and equal bilaterally Vasc: Extremities WWP. Palpable radial and pedal pulses bilaterally. Resolving ecchymosis on BUE consistent with recent IV placement. Neuro: A&Ox3, CN grossly intact, normal speech, motor/sensory grossly intact and symmetric Psych: Mood appropriate to situation ED Treatment Course - LABORATORY CBC & Chemistry Diagram: 07/06/18 12:25 07/06/18 12:25 - Medications Given in the ED: ED Medications Discontinued Medications Generic Name Dose Route Start Last Admin Trade Name Freq PRN Reason Stop Dose Admin Ondansetron HCl 4 mg 07/06/18 12:23 07/06/18 12:34 Zofran Injection IVPUSH 07/06/18 12:24 4 mg ONCE ONE Administration Sodium Chloride 1,000 ml 07/06/18 12:23 07/06/18 12:34 Normal Saline - IV 07/06/18 12:24 1,000 ml ONCE ONE Administration Medical Decision Making - Medical Decision Making 07/06/18 13:01 Caitlyn Kendrick is an 88yo woman with metastatic gastric CA, COPD, hypothyroid who presents to the ED with 3 days of nausea, vomiting, and inability to take PO. - Symptoms appear to be recurrent and are likely secondary to gastric CA - Likely dehydrated. Plan for 1L normal saline bolus, will recheck vitals. - Zofran for nausea - Will PO challenge if improved 07/06/18 14:15 - Feels improved following 1L bolus, zofran. - HR still in 90's, feels subjectively dehydrated. Additional 1L bolus ordered - Reports feeling "wobbly" when standing previously. Now able to stand without dizziness - Will start to PO challenge; given water to drink. Will reassess 07/06/18 16:17 - UA indeterminate, will send culture - Labs unremarkable - Able to tolerate PO. Will discharge home with prescription for zofran. Will call for results of UCx - Discussed with patient and daugher. Agree with this plan. Understand return precautions. Discussed with Dr Boyer *DC/Admit/Observation/Transfer Diagnosis at time of Disposition: Dehydration Vomiting Qualifiers: Vomiting type: unspecified Vomiting Intractability: non-intractable Nausea presence: with nausea Qualified Code(s): R11.2 - Nausea with vomiting, unspecified - Discharge Dispostion Disposition: HOME Condition at time of disposition: Good Decision to Admit order: No - Prescriptions Prescriptions: Ondansetron [Zofran Odt -] 4 mg GT TID PRN #30 tab.rapdis PRN Reason: Nausea And/Or Vomiting - Referrals - Patient Instructions Printed Discharge Instructions: DI for Dehydration -- Adult, DI for Vomiting - - Adult, [place] Diet Additional Instructions: Discharge Instructions: - You were seen in the ED for nausea, vomiting, and dehydration - You were given IV fluids and anti-nausea medication. Following this, you were able to tolerate eating and drinking - A urine test was suspicious for infection, but an additional test is still pending. You will need to get the results of the urine test in 3-4 days to see if you need antibiotics - You have been given a prescription for anti-nausea medication to use at home. You may take this as needed every 6-8 hours - Please continue to eat and drink as much as possible. Try to drink small amounts more frequently than normal to stay hydrated - If you are unable to take food or drink by mouth, please return for medical attention - Return to the ED if you have vomiting that will not stop, cannot eat/drink, have fevers to 101F or shaking chills along with your symptoms, or if your symptoms continue for longer than a week - Post Discharge Activity
[2018-07-06 13:16] LABS: ANION GAP 13 MMOL/L (8-16); BLOOD UREA NITROGEN 18 mg/dl (7-18); CALCIUM 8.2 mg/dl (8.4-10.2); CHLORIDE 98 mmol/L (98-107); CO2 27 mmol/L (22-28); CREATININE 0.6 mg/dl (0.6-1.3); GLUCOSE,RANDOM 91 mg/dl (74-106); PHOSPHOROUS 4.2 mg/dl (2.5-4.6); POTASSIUM 3.7 mmol/L (3.5-5.1); SODIUM 138 mmol/L (136-145)
[2018-07-06 14:21] VITALS: BP 125/64; PULSE 98
[2018-07-06 15:36] LABS: URINE APPEARANCE Slightly; URINE BILIRUBIN 1+ (NEGATIVE); URINE COLOR Amber; URINE GLUCOSE (UA) Negative (NEGATIVE); URINE KETONE 3+ (NEGATIVE); URINE LEUK ESTERASE 1+ (NEGATIVE); URINE NITRITE Negative (NEGATIVE); URINE PROTEIN 1+ (NEGATIVE)
[2018-07-06 15:52] LABS: EPI CELLS MODERATE /HPF; URINE BACTERIA FEW /hpf (NEGATIVE); URINE WBC 20-30 (0-5)
== END 2018-07-06 16:42 | disposition home or self-care (01) ==
LOC: FER 11:44
PROC: 3E0337Z Introduction of Electrolytic and Water Balance Substance into Peripheral Vein, Percutaneous Approach (ICD-10-PCS; principal; 2018-07-06)
PROC: 3E033GC Introduction of Other Therapeutic Substance into Peripheral Vein, Percutaneous Approach (ICD-10-PCS; 2018-07-06)
DX: E86.0 Dehydration (principal); R11.2 Nausea with vomiting, unspecified; Z85.00 Personal history of malignant neoplasm of unspecified digestive organ; E03.9 Hypothyroidism, unspecified; J44.9 Chronic obstructive pulmonary disease, unspecified
CPT/HCPCS: 36415; 80048; 81003; 81015; 83735; 84100; 85027; 87086; 96374; 99283-25

== ENCOUNTER 2018-09-07 11:22 | Observation (INO) | payer OTHER ==
[2018-09-07] MEDS ORDERED: SODIUM CHLORIDE 1,000 ML IV STA (12:32)
--- NOTE | 2018-09-07 12:43 | PDOC ---
History of Present Illness - General Chief Complaint: Pain Stated Complaint: PAIN Time Seen by Provider: 09/07/18 12:06 History Source: Patient, Family (daughter) Exam Limitations: No Limitations - History of Present Illness Initial Comments: 09/07/18 12:34 Pt is an 88yo f with PMH of gastric ca, breast ca s/p lumpectomy, COPD BIBA for abdominal pain, vomiting, constipation and inability to tolerate po. Pt says she has been getting on and off abdominal pain for months and is controlled with oxycodone. Pain is diffuse, sharp. Pt has also been having on and off vomiting for the past couple of months, and has been able to tolerate "sips" of liquids, but unable to tolerate solids. Per daughter, pt vomitus this AM was brown and smelly, it is usually nbnb. Pt has not had a bowel movement for the past 5 days but is passing gas. Denies bloody or tarry stools. Pt was started on chemotherapy but only had 2 sessions (most recent 3 weeks ago) when she was told chemo was not helping, she is now on hospice care. She admits to weakness, loss of appetite, n/v, constipation, lightheadedness, dribbing/painful urine. Denies fever cough, SOB, chest pain, headache, neurological symptoms PMD: Mamta Onc: Myranda PMH: see hpi PSH: hysterectomy, lumpectomy Meds: see med rec Allergies: sulfa Jacque (daughter): [phone] Past History - Past Medical History Allergies/Adverse Reactions: Allergies Allergy/AdvReac Type Severity Reaction Status Date / Time Sulfa (Sulfonamide Allergy "feels Verified 09/07/18 11:22 Antibiotics) like bugs are crawling in my skin" Home Medications: Ambulatory Orders Methimazole [Tapazole -] 5 mg PO ASDIR 06/01/18 Cyclobenzaprine HCl 5 mg PO HS 06/27/18 oxyCODONE SR [Oxycontin] 5 mg PO BID 06/27/18 Loperamide HCl [Imodium -] 2 mg PO DAILY PRN 09/07/18 Meclizine HCl 25 mg PO TID PRN 09/07/18 Ondansetron HCl [Zofran] 4 mg PO TID 09/07/18 Prochlorperazine Injection [Compazine] 10 mg IM Q6H PRN 09/07/18 Anemia: No Asthma: No Cancer: Yes (LEFT BREAST, tumor in abdomen) Cardiac Disorders: Yes (ENLARGED HEART,AORTIC VALVE DISEASE??) CVA: No COPD: No CHF: No Dementia: No Diabetes: No GI Disorders: No Disorders: No HTN: Yes Hypercholesterolemia: Yes Liver Disease: No Seizures: No Thyroid Disease: Yes (hyper) - Surgical History Abdominal Surgery: No Appendectomy: Yes Cardiac Surgery: No Cholecystectomy: Yes Lung Surgery: (L BREAST LUMPECTOMY) Neurologic Surgery: No Orthopedic Surgery: Yes (R WRIST ORIF) - Immunization History Immunization Up to Date: Yes - Suicide/Smoking/Psychosocial Hx Smoking History: Former smoker Have you smoked in the past 12 months: No If you are a former smoker, when did you quit?: 10 years ago Information on smoking cessation initiated: No Hx Alcohol Use: No Drug/Substance Use Hx: No Substance Use Type: None Hx Substance Use Treatment: No Review of Systems - Review of Systems Constitutional: Yes: Loss of Appetite. No: Chills, Fever HEENTM: No: Symptoms Reported Respiratory: No: Cough, Shortness of Breath Cardiac (ROS): Yes: Lightheadedness. No: Chest Pain, Palpitations ABD/GI: Yes: Abdominal Distended, Constipated, Nausea, Poor Appetite, Vomiting. No: Blood Streaked Bowels, Diarrhea, Rectal Bleeding, Tarry Stools : Yes: Symptoms Reported, Other (dribbling) Musculoskeletal: No: Symptoms Reported Integumentary: Yes: Other (stage one decubitus ulcer) Neurological: No: Symptoms reported *Physical Exam - Vital Signs Last Vital Signs Temp Pulse Resp BP Pulse Ox 97.3 F L 115 H 20 127/74 91 L 09/07/18 11:23 09/07/18 11:23 09/07/18 11:23 09/07/18 11:23 09/07/18 11:23 - Physical Exam General Appearance: Yes: Appropriately Dressed, Mild Distress, Cachetic HEENT: positive: EOMI, MARTHA, Pharynx Normal Neck: positive: Trachea midline, Supple. negative: Carotid bruit, Lymphadenopathy (R), Lymphadenopathy (L) Respiratory/Chest: positive: Decreased Breath Sounds (L lung field), Wheezing ( R field) Cardiovascular: positive: S1, S2, Tachycardia. negative: Edema, JVD, Murmur Vascular Pulses: Carotid (R): 2+, Carotid (L): 2+, Dorsalis-Pedis (R): 2+, Doralis-Pedis (L): 2+ Gastrointestinal/Abdominal: positive: Normal Bowel Sounds, Distended, Tenderness (all quadrants). negative: Rebound Musculoskeletal: positive: Normal Inspection Extremity: positive: Normal Capillary Refill. negative: Pedal Edema, Swelling, Calf Tenderness Integumentary: positive: Normal Color, Dry, Warm. negative: Pale, Cold Neurologic: positive: environmental health safety engineer II-XII NML intact, Fully Oriented, Alert, Normal Mood/ Affect, Normal Response, Motor Strength 03/14 ED Treatment Course - LABORATORY CBC & Chemistry Diagram: 09/07/18 12:55 09/07/18 14:20 Medical Decision Making - Medical Decision Making 09/07/18 14:03 Pt is an 88yo f with PMH of gastric ca, breast ca s/p lumpectomy, COPD BIBA for abdominal pain, vomiting, constipation and inability to tolerate po. Vitals: tachycardia, afebrile, normotensive saturating around 95% RA ( baseline) PE: cachetic, distended abdomen, normal bowel sounds, diffuse tenderness. DDx: sbo v. constipation Low suspicion for pancreatitis given pt has not had bowel movements for 5 days. Pt has been having symptoms of vomiting and nausea with abdominal pain for the past few months, well controlled with medications. Pt not complaining of nausea/ vomiting and pain in ED. Will order basic labs, ekg, trop. CT abdomen. Will give fluid bolus. chemistry hemolyzed. will send again Labs wnl. Low Ca 7.9 (baseline). CT: Since study of 06/27/2018 interval increased small bowel distention. Alternatively this distal small bowel distention could be recurrent in nature. Mld diffuse colonic distention. Mild intrahepatic an dextrahepatic biliariary tact dilation. NO calculus. Diffuse gastric wall thickening. Liver, spleen, pancreas adrenal glands and kidneys demonstarte no discrete abnormalities 09/07/18 16:36 Ca 7.9 (baseline) all other labs wnl. Pt is hospice care, family and patient do not want surgery. Will admit pt for medical management. Pt accepted by hospitalist. *DC/Admit/Observation/Transfer Diagnosis at time of Disposition: SBO (small bowel obstruction) - Discharge Dispostion Condition at time of disposition: Good Decision to Admit order: Yes - Referrals Referrals: Fredo Oleary MD [Primary Care Provider] - - Patient Instructions - Post Discharge Activity
[2018-09-07 13:12] LABS: BASO % 0.3 % (0-2.0); EOS % 0.1 % (0-4.5); HEMOGLOBIN 12.9 GM/dL (10.7-15.3); LYMPH % 7.8 % (8-40); MCH 29.6 pg (25.7-33.7); MEAN CELL VOLUME 89.8 fl (80-96); MEAN PLT VOLUME 9.2 fl (7.5-11.1); MONO % 10.5 % (3.8-10.2); NEUT % 81.3 % (42.8-82.8); PLATELET COUNT 370 K/MM3 (134-434); RBC 4.35 M/mm3 (3.60-5.2); RDW 17.7 % (11.6-15.6); WHITE BLOOD COUNT 8.9 K/mm3 (4.0-10.0)
--- NOTE | 2018-09-07 14:55 | PDOC ---
Attending Attestation - Resident Resident Name: Irene Ibrahim - ED Attending Attestation I have performed the following: I have examined & evaluated the patient, The case was reviewed & discussed with the resident, I agree w/resident's findings & plan, Exceptions are as noted - HPI HPI: 09/07/18 14:50 88 yo F with h/o gastric ca, currently in hospice, copd, here with c/o abd distension and constipation. pt has not had a bm in one week. dry membranes, decreased po intake. noted her belly is distended. she has been taking narcotics at home for pain. no vomiting but nauseaus. no other complaints. - Physicial Exam PE: 09/07/18 14:52 awake alert thin. dry mucous membranes. lungs clear bilaterally heart rrr no mrg. abd soft mild distended, nontender. ext wwp. no edema. no rash. 2 + dp pt - Medical Decision Making 09/07/18 14:54 diffferential progressing cancer, obstruction, constipation secondary to narcotics and dehydration. plan ct a/p labs reassess. 09/07/18 23:[address] with concerns for sbo, pt and family not wanting any further surgery. in hospice currently. will admit for pain mangement. bowel rest.
--- NOTE | 2018-09-07 15:04 | EKG ---
Test Reason : Blood Pressure : / mmHG Vent. Rate : 104 BPM Atrial Rate : 104 BPM P-R Int : 150 ms QRS Dur : 078 ms QT Int : 360 ms P-R-T Axes : 049 -55 073 degrees QTc Int : 473 ms SINUS TACHYCARDIA LEFT AXIS DEVIATION CANNOT RULE OUT ANTERIOR INFARCT (CITED ON OR BEFORE 19-JUN-2017) ABNORMAL ECG WHEN COMPARED WITH ECG OF 27-JUN-2018 17:49, T WAVE VARIATION Confirmed by LISANDRO CRYSTAL, MARVIN ([id number]) on 09/07/2018 3:03:44 PM Referred By: Confirmed By:MARVIN MCMAHON MD
[2018-09-07 15:07] LABS: ALBUMIN 2.1 g/dl (3.4-5.0); ALK PHOS 78 U/L (45-117); ANION GAP 7 MMOL/L (8-16); BILIRUBIN,TOTAL 0.5 mg/dL (0.2-1); BLOOD UREA NITROGEN 25 mg/dL (7-18); CALCIUM 7.9 mg/dL (8.5-10.1); CHLORIDE 106 mmol/L (98-107); CO2 28 mmol/L (21-32); CREATININE 0.3 mg/dL (0.55-1.3); GLUCOSE,RANDOM 91 mg/dL (74-106); POTASSIUM 3.5 mmol/L (3.5-5.1); SGOT/AST 15 U/L (15-37); SGPT/ALT 9 U/L (13-61); SODIUM 140 mmol/L (136-145); TOT PROT 4.4 g/dl (6.4-8.2)
--- NOTE | 2018-09-07 19:52 | PN ---
Teaching Attending Note Name of Resident: Yamel Alicea ATTENDING PHYSICIAN STATEMENT I saw and evaluated the patient. I reviewed the resident's note and discussed the case with the resident. I agree with the resident's findings and plan as documented. SUBJECTIVE: Seen and examined; for full historical details please refer to the resident of record's documentation. Briefly, this is an 88 y/o CF with a PMH as documented presenting to the hospital with a CC of abdominal pain, constipation, distention. She had a previous presentation like this >1 month ago. She has been passing flatus. She is on home hospice for gastric cancer (h/o BrCa as well) for which she failed chemo therapy for at [facility]; details regarding the chemotherapy and the cancer itself are unknown by patient and we are in the process of obtaining old records. She is hemodynamically stable. She is agreeable to getting resolution of her acute issue, though she does NOT wish for any operative procedures she will do conservative management (IVF, NGT, etc. ). Confirmed code status; was competent at this juncture. 10 sys ROS done and negative aside from HPI PMH/PSH per chart FH asked and noncontributory Social History significant for cancer patient on home hospice; no current tobacco or alcohol use OBJECTIVE: VSS, labs and imaging personally reviewed NAD AAOx3 resting comfortably in bed NT but distended and tympanic. Does have postive but reduced bowel sounds. CN2-12 grossly intact without any FND Blunted affect, normal mood Trachea midline, no JVD CT personally reviewed; ? distal SBO? ASSESSMENT AND PLAN: Mrs. Kendrick is an 88 y/o female on hospice care presenting with a questionable distal partial SBO. She does not want operative intervention but is agreeable to conservative tx. 1) Partial SBO? -Passing flatus, no signs of perforation or acute infection. -Consulting sgy; NGT if they wish. Strict NPO for now with IVF to be given at maintenance. -Monitor abdominal exam and for BS. 2) History of Gastric Cancer/Breast Cancer on Hospice with chronic cancer-asoc. pain on home narcotics -Failed chemo; details unknown so obtaining from [facility] -Converting her medications to IV for pain control (checking ISTOP); resume home medications when tolerating PO -She does have a port 3) History of COPD -GOLD stage unknown; not in acute exacerbation, continue home meds 4) History of Hypothyroidism -Not taking home meds now 5) Hospice Patient DNR/I on home hospice, limited interventions Consultants: Surgery
[2018-09-07 19:55] LABS: URINE APPEARANCE SLCLOUDY; URINE BILIRUBIN NEGATIVE (<2.0 mg/dL); URINE COLOR AMBER; URINE GLUCOSE (UA) NEGATIVE (NEGATIVE); URINE KETONE 1+ (NEGATIVE); URINE LEUK ESTERASE TRACE (NEGATIVE); URINE NITRITE NEGATIVE (NEGATIVE); URINE PROTEIN 1+ (NEGATIVE)
[2018-09-07 20:08] LABS: EPI CELLS RARE /HPF (FEW)
--- NOTE | 2018-09-07 21:22 | HP ---
CHIEF COMPLAINT: abdominal pain, nausea, vomiting PCP: HISTORY OF PRESENT ILLNESS: Patient is an 88 year old female on home hospice with history of breast cancer s /p lumpectomy, gastric cancer, COPD, HTN, HLD, hyperthyroidism, presents with complaint of abdominal pain worsening over past two days. States pain is sharp, cramping began at RLQ abdomen, and has progressed diffusely thoughout abdomen and is nonradiating. Pain is worsened with food, and movement. Denies palliative features. Pain is currently 2/10 now, and 9/10 at worst intensity. She has experienced dark brown vomiting over past two days (4X episodes yesterday, and 2X episodes today). Has not had bowel movement since this past Friday. Last bowel movement noted to be semisolid, light brown, without maida blood, or melena. Urinating well without dysuria, hematuria. ER course was notable for: (1) (2) (3) PAST MEDICAL HISTORY: breast cancer s/p lumpectomy, gastric cancer, COPD, HTN, HLD, hyperthyroidism PAST SURGICAL HISTORY: lumpectomy, cholecystectomy, hysterectomy, chemoport placement, Social History: Smoking: smoked two packs per day for 60 years. Quit 10 years ago Alcohol: admits one glass of wine socially Drugs: denies Family History: Father: Dementia, passed from pneumonia at 99 y/o Mother: Ovarian CA, passed at 83 y/o Allergies Sulfa (Sulfonamide Antibiotics) Allergy (Verified 09/07/18 11:22) "feels like bugs are crawling in my skin" HOME MEDICATIONS: Home Medications Medication Instructions Recorded Methimazole [Tapazole -] 5 mg PO ASDIR 06/01/18 Cyclobenzaprine HCl 5 mg PO HS 06/27/18 oxyCODONE SR [Oxycontin] 5 mg PO BID 06/27/18 Loperamide HCl [Imodium -] 2 mg PO DAILY PRN 09/07/18 Meclizine HCl 25 mg PO TID PRN 09/07/18 Ondansetron HCl [Zofran] 4 mg PO TID 09/07/18 Prochlorperazine Injection 10 mg IM Q6H PRN 09/07/18 [Compazine] REVIEW OF SYSTEMS As per HPI PHYSICAL EXAMINATION Vital Signs - 24 hr 09/07/18 09/07/18 11:23 20:06 Temperature 97.3 F L Pulse Rate 115 H Pulse Rate [ 105 H Apical] Respiratory 20 18 Rate Blood Pressure 127/74 Blood Pressure 145/75 [Left Arm] O2 Sat by Pulse 91 L 95 Oximetry (%) GENERAL: Awake, alert, and fully oriented, in no acute distress. HEAD: Normocephalic, atraumatic EYES: Pupils equal, round and reactive to light, extraocular movements intact without nystagmus b/l., Sclera anicteric, conjunctiva clear b/l. EARS, NOSE, THROAT: Oropharynx clear without exudates, or erythema. Moist mucous membranes. NECK: Normal range of motion, supple without lymphadenopathy. LUNGS: Breath sounds equal, clear to auscultation bilaterally. No wheezes, and no crackles. No accessory muscle use. HEART: Regular rate and rhythm, normal S1 and S2 without murmur, rub or gallop. ABDOMEN: Soft, diffusely tender to palpation X4 quadrants. Not distended. Normoactive bowel sounds auscultated X4 quadrants. No rebound tenderness. No hepatomegaly palapted or percussed. RECTAL: Good anal sphincter tone. No external or internal hemorrhoids noted. No stool within rectal vault. Light brown streaks of stool without maida blood upon gloved finger. Sample sent for occult blood. MUSCULOSKELETAL: Normal range of motion at all joints. No bony deformities or tenderness. UPPER EXTREMITIES: 2+ radial pulses b/l, warm. well-perfused. LOWER EXTREMITIES: 2+ dorsalis pedis pulses b/l, warm, well-perfused. No calf tenderness. No peripheral edema b/l. NEUROLOGICAL: Cranial nerves II-XII intact. Normal speech. No gross focal deficits. PSYCHIATRIC: Cooperative. Good eye contact. Appropriate mood and affect upon my encounter today. SKIN: Warm, dry. Two midline vertical abdominal scars, and one horizontal lower abdominal scar noted. Chemoport over right upper chest, non erythematous, nontender to palpation. No discharge. Laboratory Results - last 24 hr 09/07/18 09/07/18 09/07/18 12:55 12:55 12:55 WBC 8.9 RBC 4.35 Hgb 12.9 Hct 39.0 MCV 89.8 MCH 29.6 MCHC 33.0 RDW 17.7 H Plt Count 370 D MPV 9.2 Absolute Neuts (auto) 7.2 Neutrophils % 81.3 Lymphocytes % 7.8 L D Monocytes % 10.5 H Eosinophils % 0.1 D Basophils % 0.3 Nucleated RBC % 0 Sodium Cancelled Potassium Cancelled Chloride Cancelled Carbon Dioxide Cancelled Anion Gap Cancelled BUN Cancelled Creatinine Cancelled Creat Clearance w eGFR Cancelled Random Glucose Cancelled Calcium Cancelled Total Bilirubin Cancelled AST Cancelled ALT Cancelled Alkaline Phosphatase Cancelled Troponin I < 0.02 Total Protein Cancelled Albumin Cancelled Urine Color Urine Appearance Urine pH Ur Specific [place] Urine Protein Urine Glucose (UA) Urine Ketones Urine Blood Urine Nitrite Urine Bilirubin Urine Urobilinogen Ur Leukocyte Esterase Urine WBC (Auto) Urine RBC (Auto) Ur Epithelial Cells Stool Occult Blood 09/07/18 09/07/18 09/07/18 14:20 19:34 20:30 WBC RBC Hgb Hct MCV MCH MCHC RDW Plt Count MPV Absolute Neuts (auto) Neutrophils % Lymphocytes % Monocytes % Eosinophils % Basophils % Nucleated RBC % Sodium 140 Potassium 3.5 Chloride 106 Carbon Dioxide 28 Anion Gap 7 L BUN 25 H Creatinine 0.3 L Creat Clearance w eGFR > 60 Random Glucose 91 Calcium 7.9 L Total Bilirubin 0.5 AST 15 ALT 9 L Alkaline Phosphatase 78 Troponin I Total Protein 4.4 L Albumin 2.1 L Urine Color [place] Urine Appearance Slcloudy Urine pH 5.0 Ur Specific [place] 1.038 H Urine Protein 1+ H Urine Glucose (UA) Negative Urine Ketones 1+ H Urine Blood Negative Urine Nitrite Negative Urine Bilirubin Negative Urine Urobilinogen 2.0 H Ur Leukocyte Esterase Trace Urine WBC (Auto) 4 Urine RBC (Auto) 2 Ur Epithelial Cells Rare Stool Occult Blood Negative ASSESSMENT/PLAN: Patient is an 88 year old female on home hospice with history of breast cancer s /p lumpectomy, gastric cancer, COPD, HTN, HLD, hyperthyroidism, presents with complaint of abdominal pain worsening over past two days. Abdominal pain -CT abdomen/ pelvis shows questionable distal small bowel obstruction. -NPO -IV normal saline at 75mL/ hour -Oxycodone PO converted to Morphine IV. -Fleet enema -F/U surgery consult (Dr. Whatley) History of breast, gastric cancer -Obtain records from [facility] -Palliative care consult COPD -Not currently in exacerbation -Continue Spiriva inhaler FEN -IV normal saline at 75mL/hour -Follow CMP -NPO Prophylaxis -SCDs, TEDs b/l lower extremities Disposition -Observation in medical surgical floor Patient is home hospice, DNR as per conversation with her daughter who will bring in signed paperwork in the morning. Visit type - Emergency Visit Emergency Visit: Yes ED Registration Date: 09/07/18 Care time: The patient presented to the Emergency Department on the above date and was hospitalized for further evaluation of their emergent condition. - New Patient This patient is new to me today: Yes Date on this admission: 09/08/18 - Critical Care Critical Care patient: No
[2018-09-07] MEDS ORDERED: SODIUM CHLORIDE 1,000 ML IV SCH (23:30)
[2018-09-08] MEDS ORDERED: morphine SULFATE 4 MG/ML VIAL IVPUSH PRN (00:04)
[2018-09-08 05:11] VITALS: BMI 16.6
[2018-09-08] MEDS ORDERED: PROCHLORPERAZINE INJECTION 10 MG/2 ML VIAL IM PRN (07:29)
--- NOTE | 2018-09-08 07:33 | PN ---
Progress Note, Physician History of Present Illness: 88 y/o woman with a PMHx of: Stomach Ca on home hospice care. Hyperthyroidism, COPD, Emphysema, HTn, L-Breast Ca (s/p lumpectomy). Who presents to the ED with abdominal pain, non bilious non bloody vomiting, and watery diarrhea x3. CT abd shows Partial SBO. - Current Medication List Current Medications: Active Medications Sodium Chloride (Normal Saline -) 1,000 mls @ 75 mls/hr IV ASDIR JASPER Last Admin: 09/08/18 00:29 Dose: 75 mls/hr Morphine Sulfate (Morphine Sulfate) 4 mg IVPUSH Q6H PRN PRN Reason: PAIN LEVEL 1-5 Prochlorperazine Edisylate (Compazine Injection -) 10 mg IM Q6H PRN PRN Reason: NAUSEA Tiotropium [place] (Spiriva Respimat) 2 puff IH DAILY JASPER - Objective Vital Signs: Vital Signs Temperature 97.5 F L 09/08/18 04:58 Pulse Rate 99 H 09/08/18 04:58 Respiratory Rate 18 09/08/18 04:58 Blood Pressure 129/80 09/08/18 04:58 O2 Sat by Pulse Oximetry (%) 96 09/08/18 04:58 Labs: CBC, BMP 09/07/18 12:55 09/07/18 14:20 Problem List - Problems (1) SBO (small bowel obstruction) Code(s): K56.609 - UNSP INTESTNL OBST, UNSP TO PARTIAL VERSUS COMPLETE OBST (2) Abdominal pain Code(s): R10.9 - UNSPECIFIED ABDOMINAL PAIN Qualifiers: Abdominal location: periumbilical Qualified Code(s): R10.33 - Periumbilical pain (3) COPD (chronic obstructive pulmonary disease) Code(s): J44.9 - CHRONIC OBSTRUCTIVE PULMONARY DISEASE, UNSPECIFIED (4) HTN (hypertension) Code(s): I10 - ESSENTIAL (PRIMARY) HYPERTENSION Qualifiers: Hypertension type: essential hypertension Qualified Code(s): I10 - Essential (primary) hypertension (5) Hyperthyroidism Code(s): E05.90 - THYROTOXICOSIS, UNSP WITHOUT THYROTOXIC CRISIS OR STORM (6) Gastric carcinoma Code(s): C16.9 - MALIGNANT NEOPLASM OF STOMACH, UNSPECIFIED (7) Goals of care, counseling/discussion Code(s): Z71.89 - OTHER SPECIFIED COUNSELING
[2018-09-08] MEDS ORDERED: PT OWN MED DRAWER 7, Y5N ONE ×3 (09:56→11:37)
[2018-09-08] MEDS ORDERED: TIOTROPIUM BROMIDE 2.5 MCG (SPIRIVA) RESPIMAT INHALER IH SCH (10:00)
[2018-09-08 10:28] VITALS: TEMP 97.8
[2018-09-08] MEDS ORDERED: ONDANSETRON 4 MG/2 ML VIAL IVPUSH PRN (11:16)
[2018-09-08 15:03] VITALS: BP 148/78; PULSE 101
[2018-09-08] MEDS ORDERED: ACETAMINOPHEN 325 MG TABLET (FP) PO ONE (15:51)
--- NOTE | 2018-09-08 15:58 | DS ---
Physical Examination Vital Signs: Vital Signs Temperature 97.8 F 09/08/18 15:02 Pulse Rate 101 H 09/08/18 15:02 Respiratory Rate 18 09/08/18 15:02 Blood Pressure 148/78 09/08/18 15:02 O2 Sat by Pulse Oximetry (%) 93 L 09/08/18 09:00 Constitutional: Yes: No Distress, Calm, Thin Cardiovascular: Yes: WNL, Regular Rate and Rhythm Respiratory: Yes: WNL, Regular, CTA Bilaterally. No: Accessory Muscle Use, SOB Gastrointestinal: Yes: WNL, Normal Bowel Sounds, Soft. No: Distention, Tenderness, Vomiting Renal/: Yes: WNL Musculoskeletal: Yes: WNL Neurological: Yes: WNL, Alert, Oriented Psychiatric: Yes: WNL, Alert, Oriented Labs: CBC, BMP 09/07/18 12:55 09/07/18 14:20 Discharge Summary Reason For Visit: ENCOUNTER FOR HOSPICE CARE SMALL BOWEL OBSTRUCTION Current Active Problems Goals of care, counseling/discussion (Acute) SBO (small bowel obstruction) (Acute) Hospital Course: 88 year old female pmh of Gastric CA on home hospice admitted for worsened N/V and abdominal pain. Abd CT reveals possible sbo, suspect 2/2 malignancy. Pt made NPO, pt has been without nausea/vomiting today. Pain adequately controlled. Pt had a BM this am, tolerated full liquids. Pt appears comfortable. Palliative team consult appreciated, pt DNR/DNI, no PEG tube. Continue supportive measures. Plan for pt to continue home hospice upon discharge with better pain/symptom control. 32 minutes spent in discharge planning Condition: Good - Instructions Diet, Activity, Other Instructions: continue home hospice diet as tolerated, you may experience nausea, management per hospice continue full liquids, advance slowly as tolerated Referrals: Fredo Oleary MD [Primary Care Provider] - Disposition: HOME - Home Medications Comprehensive Discharge Medication List: Ambulatory Orders Methimazole [Tapazole -] 5 mg PO ASDIR 06/01/18 Cyclobenzaprine HCl 5 mg PO HS 06/27/18 oxyCODONE SR [Oxycontin] 5 mg PO BID 06/27/18 Meclizine HCl 25 mg PO TID PRN 09/07/18 Ondansetron HCl [Zofran] 4 mg PO TID 09/07/18 Prochlorperazine Injection [Compazine Injection -] 10 mg IM Q6H PRN 09/07/18
== END 2018-09-08 16:41 | disposition home or self-care (01) ==
LOC: JER 11:22 → INTOOBSV 20:41 → JERBED 20:41 → UNDOADMOB 20:41 → JERBED 23:29 → J8W 09-08 04:54 → JERBED 09-08 04:54
PROVIDERS: ADMIT Internal Medicine; ATTEND Internal Medicine
PROC: 3E0337Z Introduction of Electrolytic and Water Balance Substance into Peripheral Vein, Percutaneous Approach (ICD-10-PCS; principal; 2018-09-07)
PROC: 3E0F7GC Introduction of Other Therapeutic Substance into Respiratory Tract, Via Natural or Artificial Opening (ICD-10-PCS; 2018-09-07)
DX: K56.609 Unspecified intestinal obstruction, unspecified as to partial versus complete obstruction (principal); I10 Essential (primary) hypertension; E78.5 Hyperlipidemia, unspecified; J44.9 Chronic obstructive pulmonary disease, unspecified; Z85.00 Personal history of malignant neoplasm of unspecified digestive organ; Z85.3 Personal history of malignant neoplasm of breast; Z87.891 Personal history of nicotine dependence; Z88.2 Allergy status to sulfonamides
CPT/HCPCS: 36415; 74177-TC; 80053; 81003; 81015; 82272; 84484; 85025; 93005; 93010; 94640; 96360; 99284-25; G0378; J7030